=== PATIENT | female | born 1975 | race Caucasian/White ===

== ENCOUNTER 2019-08-28 00:29 | Emergency (ER) | payer OTHER, SELFPAY ==
[2019-08-28] VITALS (7 sets, daily range): BP systolic 125–145; BP diastolic 67–107; PULSE 103–117; RESP 16–28; TEMP 37.2–38.7; O2SAT 92–96
--- NOTE | ~2019-08-28 | XR_ITS ---
EXAMINATION: XR chest 1V portable DATE: 08/28/2019 01:28 INDICATION: Cough and shortness of breath TECHNIQUE: frontal view of the chest was obtained. COMPARISON: Chest radiograph dated 03/01/2018 FINDINGS: Mild increased perihilar opacities. No pleural effusion or pneumothorax. The cardiomediastinal silhou ette is normal. Visualized bones and soft tissues are unremarkable. IMPRESSION: 1. Mild perihilar opacities which could represent mild pulmonary edema or pneumonia. Reviewed, dictated and finalized at location A. T SPRAY TENDER IMPRESSION: 1. Mild perihilar opacities which could represent mild pulmonary edema or pneum onia.
--- NOTE | 2019-08-28 00:32 | ED.DIZZY ---
HPI - Dizziness General Chief Complaint: Dizziness Stated Complaint: cough Time Seen by Provider: 08/28/19 00:32 Source: patient and family Mode of arrival: ambulatory Limitations: no limitations History of Present Illness HPI Narrative: Patient is a 44-year-old female who presents to the emergency department for evaluation of shortness of breath. Patient reports she has been short of breath, also reports weakness, nausea over the past 24 hours. States she has had a recent sick contact with similar symptoms, but stated that he felt improved after a day. Patient began to have cough and shortness of breath yesterday, then began to feel nauseated and dizzy throughout the course of today. Patient did not receive influenza vaccine this year. She reports fever and feeling sweaty. She denies any head, chest or abdominal pain. She denies lower extremity swelling or rashes. Patient is not on any home oxygen. She does have a history of COPD and asthma per patient. Related Data Allergies Allergy/AdvReac Type Severity Reaction Status Date / Time aspirin Allergy Mild facial & Verified 06/06/18 21:39 throat swelling codeine Allergy Mild facial Verified 06/06/18 21:39 swelling latex Allergy Mild Verified 06/06/18 21:39 Review of Systems Review of Systems: Narrative: CONSTITUTIONAL: Reports fever and chills EYES: Denies visual changes, redness, or discharge. ENT: Reports congestion CARDIOVASCULAR: Denies chest pain, palpitations, or edema. RESPIRATORY: Reports cough and shortness of breath GASTROINTESTINAL: Denies abdominal pain, reports nausea, denies vomiting GENITOURINARY: Denies dysuria or hematuria. SKIN: Denies rash or itching. MUSCULOSKELETAL: Denies back pain, joint pain, reports myalgias NEUROLOGIC: Denies headache, numbness, reports feeling weak PMFSH Past Medical History Medical History (Updated 08/28/19 @ 01:12 by Stacy Matthew MD) Asthma Bronchitis COPD (chronic obstructive pulmonary disease) Multiple sclerosis Pneumonia Surgical History Surgical History (Updated 08/28/19 @ 00:44 by Stacy Matthew MD) H/O section H/O hernia repair H/O: hysterectomy History of cholecystectomy Social History Social History (Updated 08/28/19 @ 00:44 by Stacy Matthew MD) Smoking status: Current every day smoker Tobacco type: cigarettes Second hand tobacco smoke exposure: Yes Alcohol intake: never Substance use: never Living arrangements: with family Exam Narrative: Exam Narrative: GENERAL: Awake, alert, diaphoretic, conversant HEAD: Normocephalic, atraumatic. EYES: PERRLA and EOMI. ENT: Nares clear, no rhinorrhea or epistaxis. Mucous membranes moist. NECK: Supple. CHEST: Coarse breath sounds, expiratory wheezing bilateral bases, tachypnea, hypoxia when ambulated from the waiting room to the bed, moderate respiratory distress HEART: Tachycardic rate and rhythm. No murmur heard. Normal peripheral pulses. ABDOMEN: Soft, nontender, nondistended, normal active bowel sounds. EXTREMITIES: Normal range of motion. No edema. SKIN: Warm, dry, no rash. NEURO:No focal deficits. Alert and oriented x3. EOMs intact without nystagmus. No facial droop/asymmetry noted bilaterally. Grimace intact. Intact sensation in face. Hearing intact bilaterally. Shoulder shrug intact. Strength 5/5 bilateral upper extremities. Strength 5/5 bilateral lower extremities. Reflexes 2+ patellar. Ambulatory with a narrow base, steady gait, no ataxia. Course Course Emergency Course: Patient presented for evaluation of shortness of breath, dizziness, nausea. Patient has also had reported cough, and is febrile and tachycardic at the time of initial assessment. Concern for influenza, and patient's influenza swab is positive for influenza A. Patient was given 30 mL/kg fluid bolus because technically she does meet sepsis criteria, but no evidence of severe infection or sepsis as patient has no lactic acidosis or leukocyt
--- NOTE | 2019-08-28 00:37 | ECG_ITS ---
Measurements Intervals [place] Rate: 109 P: 27 MD: 123 QRS: 78 QRSD: 90 T: 26 QT: 335 QTc: 452 Interpretive Statements SINUS TACHYCARDIA DELAYED PRECORDIAL R/S TRANSITION BORDERLINE T WAVE ABNORMALITY- INFERIOR LEADS BASELINE ARTIFACT- I, II, AVR, AVL, AVF ABNORMAL ECG Electronically Signed On 08-28-2019 7:12:22 MACHINE COMPOSITOR by Jonah Gómez D.O.
[2019-08-28] MEDS: ACETAMINOPHEN 500 MG TABLET 1000 MG PO (00:48)
[2019-08-28] MEDS: ONDANSETRON INJ 4 MG/2 ML VIAL IV PUSH (00:48)
[2019-08-28] MEDS: methylPREDNISolone SOD SUCC 125 MG VIAL IV PUSH (00:48)
[2019-08-28] MEDS: SODIUM CHLORIDE 0.9% IV 1,000 ML 999 ML IV CONT ×2 (00:49→01:37)
[2019-08-28] MEDS: IPRATROPIUM BR 0.02% INH SOLN 0.5 MG/2.5 ML VIAL 2 MG INHALATION (00:53)
[2019-08-28] MEDS: ALBUTEROL SULFATE NEB 2.5 MG/0.5 ML INH 20 MG INHALATION (00:54)
[2019-08-28 00:56] LABS: Basophils Absolute Auto 0.1 K/mm3 (0.0-0.1); Basophils Percent Auto 0.5 % (0.2-1.2); Hematocrit 38.6 % (37.0-47.0); Immature Granulocyte Absolute 0.03 K/mm3 (0.00-0.031); Immature Granulocyte Percent A 0.2 % (0-0.5); Lymphocytes Absolute Auto 0.48 K/mm3 (0.9-3.2); Mean Corpuscular HGB Conc 31.1 g/dl (32-36); Mean Corpuscular Hemoglobin 24.7 pg (26-34); Mean Corpuscular Volume 79.6 fl (80-100); Mean Platelet Volume 9.6 fl (7.4-10.4); Monocytes Absolute Auto 0.6 K/mm3 (0.1-0.6); Monocytes Percent Auto 5.3 % (2.6-8.5); Neutrophils Absolute Auto 10.8 K/mm3 (1.3-6.7); Platelet Count Result 372 k/mm3 (150-375); Red Blood Count 4.85 M/mm3 (4.2-5.4); Red Cell Distribution Width 16.5 % (11.5-14.5)
[2019-08-28] MEDS: MAGNESIUM SULF 2 GM/WATER 50ML 2 GM/50 ML BAG IVPB (01:00)
[2019-08-28 01:11] LABS: Alveolar/Arterial O2 Gradient 92.8 mmHg; Base Excess ABG -1.1 mEq/l (+/-2.0); Fractional Inspired Oxygen 27 %; HCO3 ABG 22.5 mEq/l (22.0-26.0); Methemoglobin ABG 0.4 %THb (0-1.5); Oxygen Content ABG 15.2 %vol (16.0-22.0); Oxygen Saturation ABG 92.1 % (95.0-100.0); PCO2 ABG 33.7 mmHg (35.0-45.0); PO2 ABG 59.9 mmHg (80.0-100.0); PO2 FiO2 Ratio Arterial Blood 2.22 %; Reduced Hemoglobin 8.6 %THb (0-5.0); pH ABG 7.442 (7.350-7.450)
[2019-08-28 01:12] LABS: Device NASAL CANNULA; Liters per Minute 1.5 LPM; Modified Allen's Test Pass; Site Drawn RIGHT RADIAL
[2019-08-28 01:14] LABS: Alanine Aminotransferase 13 U/L (4-35); Albumin Level 4.3 g/dL (3.5-5.1); Alkaline Phosphatase 72 U/L (38-126); Aspartate Amino Transferase 19 U/L (14-36); Bilirubin,Total 0.6 mg/dL (0.2-1.3); Blood Urea Nitrogen 10 mg/dL (7-17); Calcium 8.7 mg/dL (8.4-10.2); Carbon Dioxide 25 mmol/L (22-30); Chloride 94 mmol/L (98-107); Estimated CRCL calculation 106 ml/min; Estimated Glomerular Filt Rate > 60; Glucose 129 mg/dL (65-105); Lipase 27 U/L (23-300); Potassium 3.7 mmol/L (3.4-5.0); Sodium 133 mmol/L (137-145)
[2019-08-28 01:44] LABS: Lactic Acid Reflex 0.7 mmol/L (0.7-2.1)
[2019-08-28] MEDS: OSELTAMIVIR PHOSPHATE 75 MG CAP PO (02:12)
== END 2019-08-28 03:05 | disposition home or self-care (01) ==
PROVIDERS: Emergency Provider Emergency Medicine
DX: J10.1 Influenza due to other identified influenza virus with other respiratory manifestations (principal); J44.9 Chronic obstructive pulmonary disease, unspecified; J45.901 Unspecified asthma with (acute) exacerbation; G35 Multiple sclerosis; F17.210 Nicotine dependence, cigarettes, uncomplicated; R00.0 Tachycardia, unspecified; R94.31 Abnormal electrocardiogram [ECG] [EKG]
CPT/HCPCS: 36415; 36600; 71045; 80053; 82375; 82805; 83050; 83605; 83690; 85025; 87040; 87804; 93005; 94640; 96365; 96367; 96375; 99284; A9270; J0456; J2405; J2930; J3475; J7030

== ENCOUNTER 2019-12-01 00:27 | Observation (INO) | payer OTHER, SELFPAY ==
[2019-12-01] VITALS (18 sets, daily range): BP systolic 102–145; BP diastolic 60–90; PULSE 73–115; RESP 15–25; TEMP 36.1–36.9; O2SAT 93–98; BMI 35.2
--- NOTE | ~2019-12-01 | CT_ITS ---
EXAMINATION: CT abdomen pelvis w con INDICATION: Abnormal chest CT, concern for renal neoplasms TECHNIQUE: Computed tomographic images of the abdomen and pelvis were obtained after the administrati on of 100 cc of Omnipaque 350 intravenous contrast. The dose-length product (DLP) was 1259.42 mGy-cm. Automated exposure control and iterative reconstruction technique were employed. COMPARISON: 01/23/2018 FINDINGS: There are patchy airspace opacities of the visualized lung bases. The gallbladder is surgic ally absent. A small sliding hiatal hernia is present. The liver, spleen, pancreas, and adrenal gland s are normal. The kidneys are unremarkable. No pathologically enlarged abdominal or pelvic lymph node s are identified. There is no free intraperitoneal gas or evidence of bowel obstruction. The appendix is normal. Gas and infiltration in the anterior subcutaneous tissues of the right lower quadrant abd ominal wall likely reflects an injection site. There is moderate lumbar spondylosis. IMPRESSION: 1. No suspicious renal lesion identified. Reviewed, dictated and finalized at location A.
--- NOTE | ~2019-12-01 | XR_ITS ---
EXAMINATION: XR chest 2V DATE: 12/01/2019 01:05 INDICATION: Shortness of breath and chest pain TECHNIQUE: PA and lateral views of the chest are obtained. COMPARISON: 08/28/2019 FINDINGS: There are patchy airspace opacities of the mid and lower lung zones. There is no pleural ef fusion or pneumothorax. The cardiomediastinal silhouette is normal. There is mild thoracic spondylosi s. IMPRESSION: 1. Patchy opacities of the mid and lower lung zones which may reflect atelectasis versus pneumonia. Reviewed, dictated and finalized at location A. IMPRESSION: 1. Patchy opacities of the mid and lower lung zones which may reflect atelectas is versus pneumonia.
--- NOTE | ~2019-12-01 | XR_ITS ---
EXAMINATION: XR shoulder LT min 2V INDICATION: Left shoulder pain TECHNIQUE: Four views of the left shoulder are submitted. COMPARISON: None FINDINGS: Normal alignment. No fracture. Glenohumeral and acromioclavicular joint spaces are normal. Soft tissues are unremarkable. IMPRESSION: No acute osseous abnormality. Reviewed, dictated and finalized at location A.
--- NOTE | ~2019-12-01 | CT_ITS ---
EXAMINATION: CTA chest PE protocol DATE: 12/01/2019 03:25 INDICATION: Chest pain and shortness of breath TECHNIQUE: Computed tomography angiography (CTA) of the chest was performed with 100 mL Omnipaque-350 intravenous contrast timed to evaluate the pulmonary arteries. Coronal maximum intensity projection 3D-reconstructions were created by the technologist. The dose-length product (DLP) was 805.30 mGy-cm. Automated exposure control and iterative reconstruction technique were employed. COMPARISON: None. FINDINGS: The pulmonary arteries are well-opacified. No pulmonary embolism is identified. There are p atchy groundglass airspace opacities throughout the lungs. No pleural effusion or pneumothorax is driss ntified. Cardiomegaly is noted. There is right supraclavicular, mediastinal and bilateral hilar lymph adenopathy, left greater than right. There is moderate thoracic spondylosis. IMPRESSION: 1. No pulmonary embolism. 2. Diffuse groundglass opacity throughout the lungs. Findings could reflect hypersensitivity pneumoni tis, atypical pneumonia, or pulmonary edema. 3. Right supraclavicular, mediastinal, and bilateral hilar lymphadenopathy, likely reactive. Reviewed, dictated and finalized at location A. IMPRESSION: 1. No pulmonary embolism. 2. Diffuse groundglass opacity throughout the lungs. Findings could reflect hyp ersensitivity pneumonitis, atypical pneumonia, or pulmonary edema. 3. Right supraclavicular, mediastinal, and bilateral hilar lymphadenopathy, lik juan reactive.
--- NOTE | ~2019-12-01 | US_ITS ---
EXAMINATION: US right upper quadrant DATE: 12/01/2019 09:24 INDICATION: Right upper quadrant pain TECHNIQUE: Multiple grayscale and Doppler ultrasound images of the abdomen were obtained. COMPARISON: CT, 01/23/2018 FINDINGS: The head, body, and tail of the pancreas are normal. The liver is normal with normal echoge nicity and echotexture. No surface nodularity. Normal hepatopetal flow in the main portal vein. The g allbladder is surgically absent. The normal common bile duct measures 4 mm. IMPRESSION: 1. No sonographic correlate for the patient's symptoms. Reviewed, dictated and finalized at location A.
--- NOTE | 2019-12-01 00:37 | ECG_ITS ---
Measurements Intervals [place] Rate: 33 P: MA: 0 QRS: 80 QRSD: 78 T: 67 QT: 598 QTc: 450 Interpretive Statements SINUS RHYTHM VENTRICULAR PREMATURE COMPLEX DELAYED PRECORDIAL R/S TRANSITION LOW QRS VOLTAGE IN PRECORDIAL LEADS BASELINE ARTIFACT- I, III, AVR, AVL, AVF, V2 BORDERLINE ECG Electronically Signed On 12-01-2019 9:07:15 CDT by Jonah Gómez D.O.
[2019-12-01 00:49] LABS: Basophils Absolute Auto 0.1 K/mm3 (0.0-0.1); Basophils Percent Auto 0.5 % (0.2-1.2); Eosinophils Absolute Auto 0.2 K/mm3 (0-0.3); Eosinophils Percent Auto 1.7 % (0-4.4); Hematocrit 36.8 % (37.0-47.0); Hemoglobin 11.3 g/dL (12.0-15.0); Immature Granulocyte Absolute 0.04 K/mm3 (0.00-0.031); Immature Granulocyte Percent A 0.3 % (0-0.5); Lymphocytes Percent Auto 12.9 % (18.3-44.2); Mean Corpuscular HGB Conc 30.7 g/dl (32-36); Mean Corpuscular Volume 74.9 fl (80-100); Mean Platelet Volume 9.4 fl (7.4-10.4); Monocytes Absolute Auto 0.8 K/mm3 (0.1-0.6); Monocytes Percent Auto 6.2 % (2.6-8.5); Neutrophils Absolute Auto 10.3 K/mm3 (1.3-6.7); Neutrophils Percent Auto 78.4 % (45.5-73.1); Platelet Count Result 411 k/mm3 (150-375); Red Blood Count 4.91 M/mm3 (4.2-5.4); Red Cell Distribution Width 17.3 % (11.5-14.5); White Blood Count 13.2 K/mm3 (4.5-10.0)
[2019-12-01 01:44] LABS: Blood Urea Nitrogen 12 mg/dL (7-17); Calcium 8.9 mg/dL (8.4-10.2); Carbon Dioxide 26 mmol/L (22-30); Chloride 103 mmol/L (98-107); Estimated Glomerular Filt Rate > 60; Glucose 100 mg/dL (65-105); Partial Thromboplastin Time 28.9 SECONDS (22.3-36.8); Potassium 4.2 mmol/L (3.4-5.0); Prothrombin Time 13.1 Seconds (11.1-14.7); Sodium 135 mmol/L (137-145)
[2019-12-01] MEDS: BELLADONNA ALK/PHENOB ELIX 10 ML, MAG HYDROX/ALUMINUM HYD/SIMETH 30 ML, LIDOCAINE HCL 2... PO (01:53)
[2019-12-01 01:56] LABS: Troponin I < 0.012 ng/mL (0.000-0.034)
[2019-12-01] MEDS: MORPHINE SULFATE 4 MG/ML INJ IV PUSH (02:20)
[2019-12-01 02:39] LABS: NT Pro B Type Natriuretic Pept 688 PG/ML (5-100)
[2019-12-01] MEDS: NITROGLYCERIN OINTMENT 1 INCH DOSE 0.5 INCH TRANSDERM (03:45)
--- NOTE | 2019-12-01 04:17 | ED.CHESTPAIN ---
HPI - Chest Pain General Chief Complaint: Chest Pain Stated Complaint: chest pain Time Seen by Provider: 12/01/19 01:42 History of Present Illness HPI narrative: Patient is a 44-year-old female who presents the ER with chest pain and shortness of breath. Sudden onset around 930. Central chest pressure. Grade 9/10. No radiation. Associated with dyspnea. Symptoms worsen if she lays down flat. No acid reflux symptoms. No modification with exertion. Denies fevers or chills or sweats. No productive cough. Patient has history of MS for which she takes Tecfidera. No history of heart disease. No history of PE. Related Data Home Medications Medication Instructions Recorded Confirmed cyclobenzaprine mg 12/01/19 Allergies Allergy/AdvReac Type Severity Reaction Status Date / Time codeine Allergy Mild facial Verified 12/01/19 00:36 swelling latex Allergy Mild Unknown Verified 12/01/19 00:36 Review of Systems Review of Systems: All systems reviewed & are unremarkable except as noted in HPI and below Cardiovascular: Cardiovascular: Reports chest pain and Denies rapid heart rate Respiratory: Respiratory: Denies cough, Reports dyspnea and Denies wheezing PMFSH Past Medical History Medical History (Updated 12/01/19 @ 05:45 by Gavino Haddad MD) Asthma Bronchitis COPD (chronic obstructive pulmonary disease) Multiple sclerosis Pneumonia Surgical History Surgical History (Updated 08/28/19 @ 00:44 by Stacy Matthew MD) H/O section H/O hernia repair H/O: hysterectomy History of cholecystectomy Social History Social History (Updated 08/28/19 @ 00:44 by Stacy Matthew MD) Smoking status: Current every day smoker Tobacco type: cigarettes Second hand tobacco smoke exposure: Yes Alcohol intake: never Substance use: never Exam Narrative: Exam Narrative: GENERAL: Uncomfortable-appearing, well-nourished, and in no acute distress. HEAD: Normocephalic, atraumatic. ENT: Mucous membranes moist. NECK: Supple. CHEST: Clear to auscultation. No respiratory distress. HEART: Regular rate and rhythm. Normal peripheral pulses. ABDOMEN: Soft, nontender, nondistended. EXTREMITIES: Normal range of motion. No edema. SKIN: Warm, dry, no rash. NEURO: Alert and oriented x3. Course Course Emergency Course: Patient informed of results. Reports chest pain has decreased with nitro paste to 4/10. This is helped ease her breathing as well. Patient denies any exposures to inhaled chemicals other than smoking cigarettes. Reevaluation(s) Reevaluation #1: Admit to hospitalist service. Will start on clindamycin as well as steroids. Will have pulmonology consulted tomorrow. Add on LDH due to concern for PCP pneumonia. Patient also received car SARS COVID swab. Date: 12/01/19 Time: 05:41 Vital Signs Vital signs: Vital Signs Temperature 98.4 F 12/01/19 00:31 Pulse Rate 115 H 12/01/19 00:31 Respiratory Rate 25 H 12/01/19 00:31 Blood Pressure 121/90 12/01/19 00:31 Pulse Oximetry 96 12/01/19 00:31 Temperature 98.4 F 12/01/19 00:31 Pulse Rate 95 12/01/19 03:35 Respiratory Rate 22 H 12/01/19 03:35 Blood Pressure 125/79 12/01/19 03:35 Pulse Oximetry 94 12/01/19 03:35 MDM - Chest Pain Lab Data Result diagrams: 12/01/19 00:42 12/01/19 01:26 Labs: Lab Results 12/01/19 12/01/19 12/01/19 Range/Units 00:42 01:26 01:26 WBC 13.2 H (4.5-10.0) K/mm3 RBC 4.91 (4.2-5.4) M/mm3 Hgb 11.3 L (12.0-15.0) g/dL Hct 36.8 L (37.0-47.0) % MCV 74.9 L (80-100) fl MCH 23.0 L (26-34) pg MCHC 30.7 L (32-36) g/dl RDW 17.3 H (11.5-14.5) % Plt Count 411 H (150-375) k/mm3 MPV 9.4 (7.4-10.4) fl Immature Gran % (Auto) 0.3 (0-0.5) % Neut % (Auto) 78.4 H (45.5-73.1) % Lymph % (Auto) 12.9 L (18.3-44.2) % [place] % (Auto) 6.2 (2.6-8.5) % Eos % (Auto) 1.7 (0-4.4) % Baso % (Auto) 0.5
[2019-12-01 05:04] LABS: Troponin I < 0.012 ng/mL (0.000-0.034)
[2019-12-01 05:35] LABS: Lactate Dehydrogenase 497 U/L (313-618)
[2019-12-01] MEDS: predniSONE 20 MG TABLET 60 MG PO (05:36)
[2019-12-01] MEDS: CLINDAMYCIN 900 MG/NS 50 ML 900 MG/50 ML PIGGYBACK 50 MG IVPB ×3 (05:36→21:11)
[2019-12-01 06:50] LABS: Troponin I < 0.012 ng/mL (0.000-0.034)
--- NOTE | 2019-12-01 06:52 | ADMGEN ---
This patient, Tatiana Elder, was admitted to [facility] Surg Room 330-01. Patient/family oriented to hospital policies and general routines including ID bracelet, bed and alarms, visiting hours, pain management, procedures, bathroom and other care routines, personal items, smoking policy, room service/diet, and visiting hours. Valuables list has been completed. Information on how to activate the Rapid Response Team has been discussed. Patient/Family are encouraged to report perceived risks to care and to ask questions if they do not understand what they are told or what they should do.
--- NOTE | 2019-12-01 08:02 | PM.IMHP ---
H&P: HPI History of Present Illness Chief complaint: hypersensitivity pneumonitis/covid PUI Narrative: Tatiana Elder is a 44 year old female with MS who is here for chest pain. Patient was feeling well until 930PM on the evening prior to admission when she developed acute onset substernal chest pain. She describes it as a squeezing sensation as well as a ?elephant laying on my chest?. The pain was 9/10 in severity. Pain radiated up to her ears bilaterally. Is associated with shortness of breath but no nausea. This occurred at rest. Has been no sick contacts. No fever chills. Pain seems to be worse with laying flat. It was worse with touching the chest wall. It was pleuritic in nature. She had a stress test that was negative less than 5 years ago but has never had a heart catheterization. He does have risk factors with tobacco use. She has had a cough the past 4 months that began after a episode of the flu. She gets headaches with the coughing spells. Cough is productive whitish sputum but no hemoptysis. Cough seems to be worse with activity. She did take some cough suppressant and allergy medications a few weeks ago without benefit. Patient presented to the emergency room by private vehicle. In the emergency room, patient was tachypneic and tachycardic. Patient was given a GI cocktail without benefit. She received a dose of morphine but a short time later developed a squeezing sensation in her lower ribcage and upper abdomen under breasts that she describes as a ?MS hug?. She gets this often a few times a month. This comes on without warning and at rest. [place] [address]. Troponin Negative x3. LDH normal. BNP 688. COVID test pending. EKG reviewed personally in very similar to an EKG from August with the exception of flattened T-waves in V2 and V3; still with poor R-wave progression. CTA showed no pulmonary emboli but did show bilateral perihilar hazy ground-glass opacities. Clindamycin and prednisone started. Nitropaste and aspirin was given. Patient was admitted for further care. Since admission, RN states patient was short of breath walking to the bathroom with pulse ox of 88% on room air. At rest she is 95%. Patient has MS and is on immunosuppressive agents. She does have memory issues at times. She complains of left arm weakness with intermittent numbness in the left hand present over the past few years. She no longer works because she is fatigued. She does complain of left shoulder pain over the past few days but denies any trauma or injury. Pain is with movement and palpation. She states her anxiety and depression symptoms well controlled. She denies any suicidal homicidal ideation. She has been having allergy symptoms with watery eyes and rhinorrhea. No sore throat. She does have intermittent diplopia and blurred vision that she states is related to her MS. Has dogs and cats at home but no exposure to other animal such as birds. No kittens. Review of Systems Review of Systems: All systems reviewed & are unremarkable except as noted in HPI and below PMFSH Past Medical History Medical History (Updated 12/01/19 @ 11:23 by China Houser MD) Asthma COPD (chronic obstructive pulmonary disease) Depression with anxiety Multiple sclerosis Vaginal mass vaginal wall lesion that was nonmalignant by bx 11/2004 Surgical History Surgical History H/O section with one miscarriage; x3 H/O hernia repair left 01/2004 H/O: hysterectomy TATA 06/2004 History of cholecystectomy Hx of knee surgery left Hx of shoulder surgery 08/2005 Family History Family History (Updated 12/01/19 @ 08:50 by Bernardino Trujillo MD) Mother Hypertension Diabetes mellitus CHF (congestive heart failure) Son Seizure in infant Social History Social History (Updated 12/01/19 @ 09:12 by Bernardino Trujillo MD) Social History: Hx of
[2019-12-01] MEDS: NICOTINE (*PBKC) 21 MG PATCH 1 PATCH TRANSDERM (09:00)
[2019-12-01] MEDS: ENOXAPARIN 40 MG/0.4 ML SYRINGE SUB-Q (09:56)
[2019-12-01 10:45] LABS: Alanine Aminotransferase 20 U/L (4-35); Albumin Level 4.2 g/dL (3.5-5.1); Alkaline Phosphatase 74 U/L (38-126); Aspartate Amino Transferase 29 U/L (14-36); Bilirubin,Total 0.6 mg/dL (0.2-1.3)
--- NOTE | 2019-12-01 11:15 | PM.CNPUL ---
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 The differential is Lymphoid Interstitial Pneumonia(LIP), Lymphangiolyomatosis, Pulmonary Langerhans Cell Histocytosis and Qzqb-Thtrr-Hzgi Syndrome. LIP is most probable based on CT scan features. - will order autoimmune panel - CT abd/pelvis to r/o renal tumors - alpha-1 antitrypsin level - may need VEGF level ordered. - May also need Bronchoscopy with BAL to check for CD1a and possible transbronchial biopsies - If above is non diagnostic, she will need VATS lung biopsy for definitive diagnosis - She must stop smoking immediately as she is at high risk for sponteneous pneumothoraces in the future - Symbicort 160/4.5 mcg 2 puffs Q8h - Spiriva 18 mcg 1 puff daily - Agree with SARS-CoV-2 rule out although less likely. History of Present Illness History of Present Illness Consult date: 12/01/19 Reason for consult: dyspnea, cough and chest pain Chief complaint: hypersensitivity pneumonitis/covid PUI Narrative: 44 y/o female smoker who presents with sudden onset chest pain worse with coughing or taking a deep breath which has subsided. She has 30 pack year smoking history and still smokes. CT chest shows bilateral predominantly upper lobe ground glass opaciites with bilateral thin walled cysts < 10 mm in size but not diffuse. The bases of the lungs are spared. She denies any family history of common lung diseases. She denies fever, chills, night sweats, sore throat, runny nose, diarrhea, decreased loss of smell or taste or decreased appetite. She says she had influenza like symptoms about two months ago which have resolved. Review of Systems Review of Systems: All systems reviewed & are unremarkable except as noted in HPI and below PMFSH Past Medical History Medical History (Updated 12/01/19 @ 11:23 by China Houser MD) Asthma COPD (chronic obstructive pulmonary disease) Depression with anxiety Multiple sclerosis Vaginal mass vaginal wall lesion that was nonmalignant by bx 11/2004 Surgical History Surgical History H/O section with one miscarriage; x3 H/O hernia repair left 01/2004 H/O: hysterectomy TATA 06/2004 History of cholecystectomy Hx of knee surgery left Hx of shoulder surgery 08/2005 Family History Family History (Updated 12/01/19 @ 08:50 by Bernardino Trujillo MD) Mother Hypertension Diabetes mellitus CHF (congestive heart failure) Son Seizure in infant Social History Social History (Updated 12/01/19 @ 09:12 by Bernardino Trujillo MD) Social History: Hx of methamphetamine use. Smokes 1ppd x 33 yrs ( she started at age 11yo). No history of IV drug use. Lives at home with her son and daughter and boyfriend. Her other child has moved out. She denies alcohol use. She wishes to make herself a DNR. She nominates her friend Bev to be the individual would make medical decisions for her if she is not able. Smoking packs per day: 1 Smoking cigarettes per day: 20.0 Smoking status: Current every day smoker Tobacco type: cigarettes Second hand tobacco smoke exposure: Yes Alcohol intake: former Substance use: never Gender identity (if verbalized by the patient): Female Spiritual care concerns: No Meds Home Medications and Allergies Home Medications Medication Instructions Recorded Confirmed Type acetaminophen [Tylenol] 325 mg PO ONCE 7 Days #30 cap 08/28/19 Rx albuterol sulfate 1 inh INHALATION Q4-6H PRN #1 each 08/28/19 Rx azithromycin See Rx Instructions .ROUTE 08/28/19 Rx .COMPLEX 5 Days #5 tablet metoclopramide HCl [Reglan] 10 mg PO Q6H PRN #14 tablet 08/28/19 Rx oseltamivir [Tamiflu] 75 mg PO
[2019-12-01] MEDS: ALBUTEROL SULFATE (*SP) AEROSOL 1 PUFF 2 PUFF INHALATION ×2 (12:43→16:50)
[2019-12-01 12:47] LABS: Rheumatoid Factor < 8.6 IU/ML (<12)
[2019-12-01] MEDS: ACETAMINOPHEN 325 MG TABLET 650 MG PO (14:21)
[2019-12-01] MEDS: ALBUTEROL SULFATE (*SP) INHALER 1 PUFF (19:51)
[2019-12-01] MEDS: OXYBUTYNIN CHLORIDE 5 MG TABLET PO (21:11)
[2019-12-01] MEDS: CYCLOBENZAPRINE HCL 10 MG TABLET PO (21:11)
[2019-12-02] VITALS (8 sets, daily range): BP systolic 105–150; BP diastolic 75–82; PULSE 62–105; RESP 20; TEMP 36.7–37; O2SAT 92–95
[2019-12-02] MEDS: CLINDAMYCIN 900 MG/NS 50 ML 900 MG/50 ML PIGGYBACK 50 MG IVPB (06:41)
[2019-12-02 07:02] LABS: Hematocrit 32.8 % (37.0-47.0); Hemoglobin 9.9 g/dL (12.0-15.0); Mean Corpuscular HGB Conc 30.2 g/dl (32-36); Mean Corpuscular Hemoglobin 22.4 pg (26-34); Mean Corpuscular Volume 74.4 fl (80-100); Mean Platelet Volume 9.2 fl (7.4-10.4); Platelet Count Result 346 k/mm3 (150-375); Red Blood Count 4.41 M/mm3 (4.2-5.4); Red Cell Distribution Width 17.2 % (11.5-14.5); White Blood Count 8.4 K/mm3 (4.5-10.0)
[2019-12-02 07:25] LABS: Alanine Aminotransferase 15 U/L (4-35); Albumin Level 3.8 g/dL (3.5-5.1); Alkaline Phosphatase 64 U/L (38-126); Aspartate Amino Transferase 22 U/L (14-36); Bilirubin,Total 0.3 mg/dL (0.2-1.3); Blood Urea Nitrogen 9 mg/dL (7-17); Calcium 8.5 mg/dL (8.4-10.2); Carbon Dioxide 26 mmol/L (22-30); Chloride 105 mmol/L (98-107); Estimated CRCL calculation 122 ml/min; Estimated Glomerular Filt Rate > 60; Glucose 101 mg/dL (65-105); Potassium 3.7 mmol/L (3.4-5.0); Sodium 137 mmol/L (137-145)
[2019-12-02] MEDS: ALBUTEROL SULFATE (*SP) AEROSOL 1 PUFF 2 PUFF INHALATION ×3 (09:17→12:35)
[2019-12-02] MEDS: CYCLOBENZAPRINE HCL 10 MG TABLET PO (10:29)
[2019-12-02] MEDS: ENOXAPARIN 40 MG/0.4 ML SYRINGE SUB-Q (10:29)
[2019-12-02] MEDS: OXYBUTYNIN CHLORIDE 5 MG TABLET PO (10:30)
[2019-12-02] MEDS: NICOTINE (*PBKC) 21 MG PATCH 1 PATCH TRANSDERM (10:30)
--- NOTE | 2019-12-02 12:19 | PM.PNPUL ---
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 The differential is Lymphoid Interstitial Pneumonia(LIP), Lymphangiolyomatosis, Pulmonary Langerhans Cell Histocytosis and Mjff-Xafag-Sgps Syndrome. LIP is most probable based on CT scan features. - RF negative and rest of autoimmune panel pending - CT Abd/pelvis shows no renal tumor or angioleomyoma - patient can be discharged home from pulmonary perspective with Symbicort 160/4.5 mcg 2 puffs bid along with Spiriva 18 mcg 1 puff daily - I ordered f/u HRCT chest in 1 month as outpatient - no need for systemic steroids as this time - no need for antibiotics - f/u in our pulmonary office via Telehealth or in Person in 6-8 weeks Subjective Date/time seen: 12/02/19 12:19 Interval history: Feeling much better, no chest pain or productive cough Review of Systems Review of Systems: All systems reviewed & are unremarkable except as noted in HPI and below Exam Const: General: comfortable and no acute distress Eyes: General: appearance normal, both eyes and all related structures Neck: Neck: supple and no JVD Resp: Auscultation: diminished lung sounds Cardio: Rate: regular rate Rhythm: regular rhythm Heart sounds: no gallops and no murmurs GI: GI Palp: Yes Soft to palpation Auscultation: normal bowel sounds Skin: General skin exam: normal color Other: raised lesions on her left knee which are dry but not fleshy as well as posterior left forearm but nothing diffuse Neuro: General: gait normal Speech: normal speech Psych: Mental Status: mental status grossly normal Affect: normal affect Objective Data Vital Signs Vital Signs: Vital Signs - 24 hr 12/01/19 12:52 12/01/19 14:00 12/01/19 16:00 Temperature 36.1 C L Pulse Rate 91 99 92 Respiratory Rate 20 20 24 H Blood Pressure 145/79 H Pulse Oximetry 93 93 12/01/19 16:57 12/01/19 18:00 12/01/19 20:00 Temperature 36.1 C L Pulse Rate 89 91 102 H Respiratory Rate 20 Blood Pressure 123/60 Pulse Oximetry 94 12/01/19 22:00 12/02/19 00:00 12/02/19 01:50 Temperature 36.1 C L 37.0 C Pulse Rate 85 105 H 87 Respiratory Rate 24 H 20 Blood Pressure 132/70 150/79 H Pulse Oximetry 98 94 12/02/19 04:00 12/02/19 07:41 12/02/19 08:00 Temperature 36.7 C Pulse Rate 91 82 62 Respiratory Rate 20 20 Blood Pressure 144/82 H Pulse Oximetry 94 92 Intake/Output Intake/Output: Intake & Output 11/29/19 11/30/19 12/01/19 12/02/19 23:59 23:59 23:59 23:59 Intake Total 860 200 Output Total 1200 300 Balance -340 -100 Meds/Results Medications: Active Medications Generic Name Dose Route Start Last Admin Trade Name Freq PRN Reason Stop Dose Admin Acetaminophen 650 mg 12/01/19 05:11 12/01/19 14:21 Tylenol Tablet PO 650 mg Q4H PRN Administration Mild Pain (1-3) or Fever Hydrocodone Bitart/Acetaminophen 1 tab 12/01/19 05:11 12/02/19 11:30 Post 5-325 Mg PO 1 tab Q4H PRN Administration Pain Rated 4-6 Albuterol 2 puff 12/01/19 12:00 12/02/19 09:17 Proventil Hfa INHALATION 2 puff QIDRT ESTHER Administration Budesonide/Formoterol Fumarate 2 puff 12/01/19 11:10 12/02/19 09:18 Symbicort 160-4.5 Mcg (*Sp) Inhaler INHALATION 2 puff Q8HRT ESTHER Administration Cyclobenzaprine HCl 10 mg 12/01/19 21:00 12/02/19 10:29 Flexeril PO 10 mg Q12HR ESTHER Administration Enoxaparin Sodium 40 mg 12/01/19 09:30 12/02/19 10:29 Lovenox SUB-Q 40 mg DAILY ESTHER Administration Clindamycin/Sodium Chloride 900 mg in 50 mls @ 50 mls/hr 12/01/19 14:00 12/02/19 06:41 Cleocin 900 Mg/Ns 50 Ml IVPB 50 mls/hr Q8H ESTHER Administration Morphine Sulfate 4 mg 12/01/19 05:11 Morphine Sulfate Inj IV PUSH
--- NOTE | 2019-12-02 15:12 | PM.DS ---
DS: Diagnosis Admitting Diagnosis Admitting Diagnosis: Interstitial pulmonary disease, unspecified Discharge Diagnosis (1) Hypersensitivity pneumonitis: Code(s): J67.9 - Hypersensitivity pneumonitis due to unspecified organic dust Status: Acute Assessment and Plan: Ursula presented with pleuritic chest pain, SOB anc cough. CTA showing hazy ground-glass opacities in the lungs bilaterally concerning for hypersensitive pneumonitis but cannot exclude atypical pneumonia such as viral or atypical bacterial infection given that she is immunosuppressed. Pulmonary consult obtained and felt patient has a unique form of ILD which is in the subcategory of cystic lung disease. She was treated with prednisone and clindamycin but this was not continued. Titers ordered but most pending. RF negative. CT Abd/Pelvis shows no acute findings. Patient feeling much better. Plan for discharge. Discussed she needs to longterm in place until her SARS CoV-2 PCR result returns. And courage her not to leave the home. Also encouraged her to have her children stay with other family members or friends. She voiced understanding of this. (2) Chest pain: Code(s): R07.9 - Chest pain, unspecified Status: Acute Assessment and Plan: Patient with atypical chest pain occurring at rest with pleuritic component. Suspect this is related to #1. Troponins negative x3. No recurrence. (3) Suspected COVID-19 virus infection: Code(s): Z20.828 - Contact with and (suspected) exposure to other viral communicable diseases Status: Acute Assessment and Plan: SARS-CoV-2 PCR sent. As above. (4) COPD (chronic obstructive pulmonary disease): Code(s): J44.9 - Chronic obstructive pulmonary disease, unspecified Status: Acute Assessment and Plan: Patient not actively wheezing. She has been encouraged to stop smoking. (5) Multiple sclerosis: Code(s): G35 - Multiple sclerosis Status: Acute Assessment and Plan: Patient with immunosuppressive agents for her MS. Okay to resume immunosuppressive agents. (6) Depression with anxiety: Code(s): F41.8 - Other specified anxiety disorders Status: Acute Assessment and Plan: Mood is stable. (7) Tobacco abuse: Code(s): Z72.0 - Tobacco use Status: Acute Assessment and Plan: Patient has been educated about the benefits of smoking cessation. We provided her with nicotine patch. DS: Summary Time Spent with Patient Time attestation: Total time spent providing and/or coordinating discharge services: Exam Narrative: Exam Narrative: Gen -NARD Chest -CTA bilaterally, nml RR CV - RRR S1/S2 Abd - Soft, NT/ND, Positive BS Ext - No pedal edema. Psych - Nml mood and affect Skin - Warm and dry DS: Data Data Completed and Pending Labs on day of discharge: Labs from last 24 hours 12/02/19 12/02/19 12/01/19 06:46 06:46 21:59 WBC 8.4 RBC 4.41 Hgb 9.9 L Hct 32.8 L MCV 74.4 L MCH 22.4 L MCHC 30.2 L RDW 17.2 H Plt Count 346 MPV 9.2 Sodium 137 Potassium 3.7 Chloride 105 Carbon Dioxide 26 BUN 9 Creatinine 0.70 Estim Creat Clear Calc 122 Estimated GFR > 60 Glucose 101 Calcium 8.5 Total Bilirubin 0.3 AST 22 ALT 15 Alkaline Phosphatase 64 Total Protein 7.0 Albumin 3.8 COVID-19 Pt Symptomatic COVID-19 PCR Interp Urine Histoplasma Ag Pending Ur L.pneumophila Ag Pending SARS-CoV-2 Source SARS-CoV-2 RNA (RT-PCR) 12/01/19 12/01/19 05:31 05:31 WBC RBC Hgb Hct MCV MCH MCHC RDW Plt Count MPV Sodium Potassium Chloride Carbon Dioxide BUN Creatinine Estim Creat Clear Calc Estimated GFR Glucose Calcium Total Bilirubin AST ALT Alkaline Phosphatase Total Protein Albumin COVID-19 Pt Symptomatic Pending CO
--- NOTE | 2019-12-02 17:10 | PC.NURSE ---
returned home meds to pt and sent swab to lab [facility] to get mobilab to print label called and spoke with jese sent pt label with my initial and time speimen was collected
[2019-12-04 19:22] LABS: Legionella pneumophila Ag Ur Not Detected (Not Detected)
--- NOTE | 2019-12-05 09:46 | PC.NURSE ---
12/04/19 1400. Attempted to call patient regarding her negative COVID result. Left message for patient to call office.
[2019-12-06 01:37] LABS: CMV IgM Antibody <30.00 AU/mL (<30.00)
[2019-12-06 01:37] LABS: ANA Cascade Screen Negative (Negative); Alpha-1-Antitrypsin, QN 208 mg/dL (83-199); Anti Cyclic Citrullinated Pept <16 Units (<20)
== END 2019-12-02 17:05 | disposition home or self-care (01) ==
LOC: ANHED 05:45 → ANH3MEDSUR 12-02 15:42
PROVIDERS: Internal Medicine Critical Care Medicine; Admitting Provider Internal Medicine; Emergency Provider Emergency Medicine; Visit Provider Internal Medicine
DX: J67.9 Hypersensitivity pneumonitis due to unspecified organic dust (principal); J84.9 Interstitial pulmonary disease, unspecified; R07.89 Other chest pain; Z20.828 Contact with and (suspected) exposure to other viral communicable diseases; J44.9 Chronic obstructive pulmonary disease, unspecified; G35 Multiple sclerosis; F41.8 Other specified anxiety disorders; F17.210 Nicotine dependence, cigarettes, uncomplicated; R06.00 Dyspnea, unspecified; Z66 Do not resuscitate
CPT/HCPCS: 36415; 71046; 71275; 73030; 74177; 76705; 80048; 80053; 80076; 82103; 83615; 83880; 84484; 85025; 85027; 85610; 85730; 86038; 86200; 86235; 86430; 86645; 87040; 87385; 87449; 87486; 87635; 93005; 94640; 96365; 96366; 96372; 96375; 99285; A9270; C9803; G0378; G0379; J1650; J2270; J7512; Q9967; U0003

== ENCOUNTER 2020-01-02 16:19 | Outpatient (CLI) | payer OTHER, SELFPAY ==
--- NOTE | ~2020-01-02 | CT_ITS ---
EXAMINATION: CT chest high resolution wo nh DATE: 01/02/2020 16:42 INDICATION: Hypersensitivity pneumonitis TECHNIQUE: Computed tomography (CT) of the chest was performed without intravenous contrast. The dose -length product (DLP) was 521.08 mGy-cm. Automated exposure control and iterative reconstruction tech nique were employed. COMPARISON: 12/01/2019 FINDINGS: There are persistent but improved diffuse groundglass opacities of the lungs, predominantly involving the upper lobes. Small pleural effusions are now present, right greater than left. There i s no pneumothorax. There is smooth interlobular septal thickening. Cardiomegaly is noted. Mediastinal and bilateral hilar lymphadenopathy persists. The gallbladder is surgically absent. There is moderat e thoracic spondylosis. There is mild emphysema. IMPRESSION: 1. Findings consistent with mild pulmonary edema. 2. Cardiomegaly. 3. Persistent mediastinal lymphadenopathy of unclear significance. Although findings could reflect re active lymph nodes, lymphoma or possibly metastatic disease are considerations. Reviewed, dictated and finalized at location A. IMPRESSION: 1. Findings consistent with mild pulmonary edema. 2. Cardiomegaly. 3. Persistent mediastinal lymphadenopathy of unclear significance. Although fin dings could reflect reactive lymph nodes, lymphoma or possibly metastatic disea se are considerations.
== END 2020-01-02 16:20 | disposition home or self-care (01) ==
PROVIDERS: Visit Provider Internal Medicine Critical Care Medicine
DX: J18.9 Pneumonia, unspecified organism (principal); I51.7 Cardiomegaly
CPT/HCPCS: 71250

== ENCOUNTER 2020-01-04 00:26 | Outpatient (CLI) | payer OTHER, SELFPAY ==
[2020-01-04 17:52] LABS: SARS-CoV-2 RNA PCR Negative
== END 2020-01-04 00:27 | disposition home or self-care (01) ==
LOC: ANHCOVIDDT 00:27
PROVIDERS: Visit Provider Internal Medicine Critical Care Medicine
DX: Z01.818 Encounter for other preprocedural examination (principal); Z11.59 Encounter for screening for other viral diseases
CPT/HCPCS: 87635; C9803; U0003

== ENCOUNTER 2020-01-04 21:55 | Emergency (ER) | payer OTHER, SELFPAY ==
--- NOTE | ~2020-01-04 | XR_ITS ---
XR abdomen/kub 1V 01/05/2020 00:54 INDICATION: Flank pain TECHNIQUE: KUB COMPARISON: 02/05/2004 FINDINGS: Bowel gas pattern is normal. There is no evidence of free air, mass, organomegaly, ascites or obstruction. No abnormal calculi are seen. The bones appear intact. IMPRESSION: 1: No acute abdominal abnormality identified. Reviewed, dictated and finalized at location A.
--- NOTE | ~2020-01-04 | CT_ITS ---
EXAMINATION: CT abdomen pelvis wo con DATE: 01/05/2020 01:02 INDICATION: Right flank pain and hematuria TECHNIQUE: Computed tomography (CT) of the abdomen and pelvis was performed without intravenous contr ast. The dose-length product was 1422.59 mGy-cm. Automated exposure control and iterative reconstruct ion technique were employed. COMPARISON: CT dated 12/01/2019 FINDINGS: No significant pleural or pericardial effusion. No renal/ureteral stone. Nonobstructive bow el gas pattern. Fatty infiltration of the liver. Status post cholecystectomy. No focal bowel wall thi ckening, abscess or free air. Normal appendix. Status post hysterectomy. Small fat-containing umbilic al hernia. Mild-moderate lumbar spondylosis. IMPRESSION: 1. No acute abdominal abnormality. Reviewed, dictated and finalized at location A.
--- NOTE | ~2020-01-04 | CT_ITS ---
EXAMINATION: CTA chest PE protocol DATE: 01/05/2020 08:54 CDT INDICATION: Right posterior chest pain. Elevated d-dimer. Hematuria. TECHNIQUE: Computed tomographic angiography (CTA) of the chest was performed with 100 mL Omnipaque-35 0 intravenous contrast. The dose-length product was 932.23 mGy-cm. Maximum intensity projection 3D-re constructions of the aorta and other arteries were constructed by the technologist on a separate work station. Automated exposure control and iterative reconstruction technique were employed. COMPARISON: CT dated 01/02/2020 FINDINGS: Study is technically adequate without evidence for pulmonary embolism. There is mediastinal and bilateral hilar lymphadenopathy. Cardiomegaly. No significant pleural or pericardial effusion. T here is mild emphysema. There is bilateral mosaic attenuation which has progressed in both lungs. No evidence for aortic aneurysm or dissection. IMPRESSION: 1. No evidence for pulmonary embolism. 2: Progression of mostly continuation of the lungs. Differential diagnosis includes hypersensitivity pneumonitis and atypical pneumonias. 3: Mediastinal and bilateral hilar lymphadenopathy, nonspecific. Reviewed, dictated and finalized at location A. IMPRESSION: 1. No evidence for pulmonary embolism. 2: Progression of mostly continuation of the lungs. Differential diagnosis inc ludes hypersensitivity pneumonitis and atypical pneumonias. 3: Mediastinal and bilateral hilar lymphadenopathy, nonspecific.
[2020-01-04 21:56] VITALS: BP 154/109; PULSE 117; RESP 23; TEMP 36.4; O2SAT 97
[2020-01-04 23:47] LABS: Base Excess ABG -0.7 mEq/l (+/-2.0); Carboxyhemoglobin 2.2 % THb (0-2.0); Device ROOM AIR; Fractional Inspired Oxygen 21 %; HCO3 ABG 23.4 mEq/l (22.0-26.0); Methemoglobin ABG 0.4 %THb (0-1.5); Modified Allen's Test Pass; Oxygen Saturation ABG 94.1 % (95.0-100.0); Oxyhemoglobin 89.9 % THb (90.0-100.0); PCO2 ABG 36.5 mmHg (35.0-45.0); PO2 FiO2 Ratio Arterial Blood 3.24 %; Reduced Hemoglobin 7.5 %THb (0-5.0); Site Drawn LEFT RADIAL; pH ABG 7.425 (7.350-7.450)
[2020-01-04 23:56] LABS: Basophils Absolute Auto 0.1 K/mm3 (0.0-0.1); Basophils Percent Auto 0.6 % (0.2-1.2); Eosinophils Absolute Auto 0.3 K/mm3 (0-0.3); Eosinophils Percent Auto 2.4 % (0-4.4); Hematocrit 34.6 % (37.0-47.0); Hemoglobin 10.4 g/dL (12.0-15.0); Immature Granulocyte Absolute 0.03 K/mm3 (0.00-0.031); Immature Granulocyte Percent A 0.3 % (0-0.5); Lymphocytes Absolute Auto 1.47 K/mm3 (0.9-3.2); Lymphocytes Percent Auto 14.4 % (18.3-44.2); Mean Corpuscular HGB Conc 30.1 g/dl (32-36); Mean Corpuscular Hemoglobin 23.1 pg (26-34); Mean Corpuscular Volume 76.9 fl (80-100); Mean Platelet Volume 9.5 fl (7.4-10.4); Monocytes Absolute Auto 0.5 K/mm3 (0.1-0.6); Monocytes Percent Auto 5.2 % (2.6-8.5); Neutrophils Absolute Auto 7.9 K/mm3 (1.3-6.7); Neutrophils Percent Auto 77.1 % (45.5-73.1); Platelet Count Result 358 k/mm3 (150-375); Red Cell Distribution Width 19.5 % (11.5-14.5); White Blood Count 10.2 K/mm3 (4.5-10.0)
[2020-01-05 00:04] LABS: Add Urine Microscopic? YES; Appearance Urine Cloudy (Clear); Bacteria Urine Trace /hpf; Bilirubin Urine Negative (Negative); Blood Urine 2+ (Negative); Color Urine Yellow (Yellow); Glucose Urine UA Negative (Negative); Ketones Urine Negative (Negative); Leukocyte Esterase Ur 3+ LEU/UL (Negative); Mucus Urine Rare /lpf; Nitrate Urine Negative (Negative); Protein Urine 2+ mg/dL (Negative); RBC Urine >75 /hpf (0-2); Squamous Epithelial Cell Urine Many /hpf (Few); Urobilinogen Urine Negative mg/dL (<2.0); WBC Urine >75 /hpf
[2020-01-05 00:06] LABS: Lactic Acid Reflex 0.5 mmol/L (0.7-2.1)
[2020-01-05 00:08] LABS: CRP 2.9 mg/dL (<1.0); INR 1.1; Lipase 70 U/L (23-300); Prothrombin Time 13.5 Seconds (11.1-14.7)
[2020-01-05 00:09] LABS: Partial Thromboplastin Time 31.7 SECONDS (22.3-36.8)
[2020-01-05 00:11] LABS: D Dimer 0.64 ug/mL (<0.48)
[2020-01-05 00:14] VITALS: BP 139/86; PULSE 94; RESP 20; O2SAT 97
--- NOTE | 2020-01-05 00:22 | ED.GENADULT ---
HPI - General Adult General Chief complaint: Unspecified Stated complaint: BACK PAIN Time Seen by Provider: 01/04/20 22:30 Source: patient Mode of arrival: ambulatory Limitations: no limitations History of Present Illness HPI narrative: This patient is a 44 year old female who presents for evaluation of right posterior lower rib pain starting tonight. Patient states she was sitting when she developed sudden pain . This pain is worse with breathing and this is causing her sob. She denies cough, nausea, vomiting or abdominal pain. This pain does not radiated . She states she has not taken any medication for her pain. She had similar pain 1 month ago and she states she is getting a lung evaluation as she is schedule for bronchoscopy soon. She denies OCP, leg pain and swelling or history of dVt PE. Related Data Home Medications Medication Instructions Recorded Confirmed cyclobenzaprine 10 mg PO BID 12/01/19 12/31/19 amantadine HCl 100 mg capsule 100 mg PO BID 12/27/19 12/31/19 dimethyl fumarate 120 mg 120 mg PO BID 12/27/19 12/31/19 capsule,delayed release oxybutynin chloride 5 mg tablet 5 mg PO BID 12/27/19 12/31/19 paroxetine HCl 10 mg tablet 10 mg PO DAILY 12/27/19 12/31/19 aspirin 325 mg PO BID 12/31/19 12/31/19 Allergies Allergy/AdvReac Type Severity Reaction Status Date / Time codeine Allergy Mild facial Verified 12/31/19 15:18 swelling latex Allergy Mild Rash Verified 12/31/19 15:18 cocoa butter Allergy Swelling Verified 12/31/19 15:18 coconut Allergy Swelling Verified 12/31/19 15:18 of Lip/Tongue/Throat Review of Systems Review of Systems: All systems reviewed & are unremarkable except as noted in HPI and below Constitutional: Constitutional: Denies chills and Denies fever(s) Cardiovascular: Cardiovascular: Denies chest pain and Denies radiating jaw, neck or arm pain Respiratory: Respiratory: Denies cough, Reports dyspnea and Denies wheezing Gastrointestinal: Gastrointestinal: Denies abdominal pain, Denies diarrhea, Denies nausea and Denies vomiting Genitourinary: Genitourinary: Denies hematuria and Denies dysuria Musculoskeletal: Musculoskeletal: Reports back pain Integumentary/Breasts: Skin/Breast: Reports rash PMFSH Past Medical History Medical History (Updated 01/05/20 @ 01:55 by Angie Sung MD) Asthma COPD (chronic obstructive pulmonary disease) Depression with anxiety Multiple sclerosis Vaginal mass vaginal wall lesion that was nonmalignant by bx 11/2004 Surgical History Surgical History H/O section with one miscarriage; x3 H/O hernia repair left 01/2004 H/O: hysterectomy TATA 06/2004 History of cholecystectomy Hx of knee surgery left Hx of shoulder surgery 08/2005 Family History Family History (Updated 12/01/19 @ 08:50 by Bernardino Trujillo MD) Mother Hypertension Diabetes mellitus CHF (congestive heart failure) Son Seizure in Social History Social History (Updated 12/01/19 @ 09:12 by Bernardino Trujillo MD) Social History: Hx of methamphetamine use. Smokes 1ppd x 33 yrs ( she started at age 11yo). No history of IV drug use. Lives at home with her son and daughter and boyfriend. Her other child has moved out. She denies alcohol use. She wishes to make herself a DNR. She nominates her friend Bev to be the individual would make medical decisions for her if she is not able. Smoking packs per day: 1 Smoking cigarettes per day: 20.0 Smoking status: Current every day smoker Tobacco type: cigarettes Second hand tobacco smoke exposure: Yes Alcohol intake: former Substance use: never Gender identity (if verbalized by the patient): Female Spiritual care concerns: No Exam Const: General: alert Orientation/consciousness: patient oriented x3 HENMT: Face and sinus: face symmetric Mouth: Yes Normal
--- NOTE | 2020-01-05 00:44 | PC.NURSE ---
Patient being taken to CT.
[2020-01-05 01:02] LABS: Estimated CRCL calculation 97 ml/min; Estimated Glomerular Filt Rate > 60
[2020-01-05] MEDS: KETOROLAC 30 MG/ML VIAL (*BKC) IV PUSH (02:14)
[2020-01-05 02:35] VITALS: BP 140/87; PULSE 93; RESP 20; O2SAT 97
== END 2020-01-05 02:37 | disposition home or self-care (01) ==
PROVIDERS: Emergency Provider General Practice
DX: J98.4 Other disorders of lung (principal); R10.9 Unspecified abdominal pain; N39.0 Urinary tract infection, site not specified; J44.9 Chronic obstructive pulmonary disease, unspecified; F41.8 Other specified anxiety disorders; G35 Multiple sclerosis; F17.210 Nicotine dependence, cigarettes, uncomplicated; Z79.82 Long term (current) use of aspirin
CPT/HCPCS: 36415; 36600; 71275; 74018; 74176; 81001; 82375; 82805; 83050; 83605; 83690; 85025; 85380; 85610; 85730; 86140; 87086; 87635; 96365; 96375; 99284; C9803; J0131; J0696; J1885; Q9967; U0003

== ENCOUNTER 2020-01-07 17:30 | Observation (INO) | payer OTHER, SELFPAY ==
[2019-12-31 15:25] VITALS: BMI 34.4
[2020-01-07] VITALS (11 sets, daily range): BP systolic 113–141; BP diastolic 64–88; PULSE 82–104; RESP 17–36; TEMP 36.1–36.9; O2SAT 93–100
--- NOTE | ~2020-01-07 | XR_ITS ---
EXAMINATION: XR chest 1V portable DATE: 01/08/2020 09:44 INDICATION: Interstitial lung disease post bronchoscopy with biopsy TECHNIQUE: frontal view of the chest was obtained. COMPARISON: Chest radiograph dated 01/07/2020 FINDINGS: Pulmonary vascular congestion with interval improvement in now minimal perihilar pulmonary edema. No new airspace opacities, pleural effusion or pneumothorax. Mild cardiomegaly. IMPRESSION: 1. Cardiomegaly with interval improvement in now minimal perihilar edema. Reviewed, dictated and finalized at location A.
--- NOTE | ~2020-01-07 | XR_ITS ---
EXAMINATION: XR chest 1V portable EXAM DATE: 01/07/2020 14:15 INDICATION: Post bronchoscopy. TECHNIQUE: Portable AP frontal chest x-rays was obtained. Comparison is made to prior examination the [facility] 12/01/2019. FINDINGS: Initial image is underpenetrated at the lung bases. There is mild cardiomegaly. There is pu lmonary vascular congestion and suspicion of perihilar pulmonary airspace disease, distribution most consistent with pulmonary edema but please clinically correlate. No pleural effusions or pneumothorax . IMPRESSION: Development of congestive changes. Ill-defined perihilar opacities, distribution most co nsistent with pulmonary edema. Infectious process not excludable. Clinical correlation indicated. Reviewed, dictated and finalized at location B. IMPRESSION: Development of congestive changes. Ill-defined perihilar opacities , distribution most consistent with pulmonary edema. Infectious process not exc ludable. Clinical correlation indicated.
--- NOTE | ~2020-01-07 | US_ITS ---
EXAMINATION: US venous doppler [facility] DATE: 01/08/2020 09:52 INDICATION: Lower limb swelling TECHNIQUE: Grayscale ultrasound images without and with compression and Doppler ultrasound images of the bilateral lower extremity veins were obtained. COMPARISON: None. FINDINGS: The visualized portions of right common femoral vein, profunda (deep) femoral vein, femoral vein, pop liteal vein, posterior tibial veins, peroneal veins, gastrocnemius vein and greater saphenous vein ou tflow are patent. Increased venous pulsatility which can be seen extending below the knee to the popl iteal and gastrocnemius veins. The visualized portions of left common femoral vein, profunda femoral vein, femoral vein, popliteal v ein, posterior tibial veins, peroneal veins, gastrocnemius vein and greater saphenous vein outflow ar e patent. Increased venous pulsatility which can be seen extending below the knee to the popliteal an d gastrocnemius veins. IMPRESSION: 1. No deep venous thrombosis in either lower limb. 2. Increased venous pulsatility which can be secondary to tricuspid regurgitation, right heart failur e or other cause of elevated right heart pressures. Reviewed, dictated and finalized at location A. IMPRESSION: 1. No deep venous thrombosis in either lower limb. 2. Increased venous pulsatility which can be secondary to tricuspid regurgitati on, right heart failure or other cause of elevated right heart pressures.
--- NOTE | ~2020-01-07 | XR_ITS ---
EXAMINATION: XR fl bronchoscopy w imaging INDICATION: Bronchoscopy with fluoroscopic guidance, interstitial pulmonary disease TECHNIQUE: Two intraoperative fluoroscopic images are submitted for review. Total fluoroscopic time i s 14.3 seconds. COMPARISON: None available FINDINGS: Fluoroscopic images demonstrate a bronchoscope in the left mainstem pulmonary bronchus. Ple ase refer to procedure note for full details. IMPRESSION: 1. Bronchoscope in the left mainstem bronchus. Please refer to procedure note for full details. Reviewed, dictated and finalized at location A. IMPRESSION: 1. Bronchoscope in the left mainstem bronchus. Please refer to procedure note f or full details.
--- NOTE | 2020-01-07 10:38 | WPDANESEPPF ---
Anes - Initial Pre Proc Eval Procedure: Operation Date: 01/07/20 12:00 Proposed Procedures p Flexible Bronchoscopy With Fluoroscopy - Leigha Shea MD Date/Time: 01/07/20 10:38 Surgeon: Leigha Shea MD Pre Op Diagnosis: Interstitial Lung Disease Patient Data Age: 44 Gender: F Height: 1.8 m Weight: 117.4 kg Last Vital Signs Temp 36.4 C 01/07/20 10:24 Pulse 102 H 01/07/20 10:24 Resp 24 H 01/07/20 10:24 BP 141/87 H 01/07/20 10:24 Pulse Ox 97 01/07/20 10:24 Allergies Allergy/AdvReac Type Severity Reaction Status Date / Time codeine Allergy Mild facial Verified 12/31/19 15:18 swelling latex Allergy Mild Rash Verified 12/31/19 15:18 cocoa butter Allergy Swelling Verified 12/31/19 15:18 coconut Allergy Swelling Verified 12/31/19 15:18 of Lip/Tongue/Throat Home Medications Medication Instructions Recorded Confirmed Type cyclobenzaprine 10 mg PO BID 12/01/19 12/31/19 History budesonide-formoterol [Symbicort] 2 puff INHALATION Q8HRT #10.2 gm 12/02/19 12/31/19 Rx tiotropium bromide [Spiriva with 1 cap INHALATION DAILY@0800 #30 12/02/19 12/31/19 Rx HandiHaler] inhalation amantadine HCl 100 mg capsule 100 mg PO BID 12/27/19 12/31/19 History dimethyl fumarate 120 mg 120 mg PO BID 12/27/19 12/31/19 History capsule,delayed release oxybutynin chloride 5 mg tablet 5 mg PO BID 12/27/19 12/31/19 History paroxetine HCl 10 mg tablet 10 mg PO DAILY 12/27/19 12/31/19 History aspirin 325 mg PO BID 12/31/19 12/31/19 History nitrofurantoin macrocrystal 100 mg PO Q12H #14 cap 01/05/20 Rx Patient hx anesthesia problems: post op nausea/vomiting Family hx anesthesia problems: none PMFSH Social History Social History (Updated 01/06/20 @ 17:14 by Leigha Shea MD) Social History: Hx of methamphetamine use. Smokes 1ppd x 33 yrs ( she started at age 11yo). No history of IV drug use. Lives at home with her son and daughter and boyfriend. Her other child has moved out. She denies alcohol use. She wishes to make herself a DNR. She nominates her friend Bev to be the individual would make medical decisions for her if she is not able. Smoking packs per day: 1 Smoking cigarettes per day: 20.0 Smoking status: Former smoker Tobacco type: cigarettes Second hand tobacco smoke exposure: Yes Smoking end date: 12/15/19 Additional smoking assessment comments: only 1 cigarette in the last month Alcohol intake: former Substance use: never Gender identity (if verbalized by the patient): Female Spiritual care concerns: No Anes - Eval Final PreProcedure Day of Procedure 01/07/20 10:38 Patient weight: obese Heart: regular rate and rhythm Lungs: clear to auscultation and normal air movement Airway: Mallampati scale class II Neurological: alert and oriented Last oral intake: >/= 8 hours ASA classification: III Emergent: no Anesthetic plan: proceed Anesthesia type and monitoring: general ETT and standard monitoring Informed Consent: The patient's anesthetic plan and its attendant risks and benefits were discussed with the patient/family/POA. Questions were solicited and answers provided to the satisfaction of the patient/family/POA.
[2020-01-07] MEDS: SCOPOLAMINE 1.5 MG PATCH TRANSDERM (10:49)
[2020-01-07] MEDS: LACTATED RINGERS 1,000 ML 150 ML IV CONT (11:48)
--- NOTE | 2020-01-07 13:57 | SUR.OPER ---
BAL 150ML, WASHINGS 15ML, ICED NS 5ML. BAL RETURN 25ML
[2020-01-07] MEDS: MIDAZOLAM HCL 2 MG/2 ML VIAL IV PUSH (14:18)
--- NOTE | 2020-01-07 14:43 | SUR.PHASEII ---
Spoke with patient at twelve and twelve thirty this afternoon to let her know that the procedure will be late. Patient was on the phone with her family at this time. 1445 Spoke with daughter Elizabeth on the phone to update on her mom.
--- NOTE | 2020-01-07 14:47 | ECG_ITS ---
Measurements Intervals [place] Rate: 84 P: 61 FL: 131 QRS: 74 QRSD: 83 T: 28 QT: 373 QTc: 443 Interpretive Statements SINUS RHYTHM POSSIBLE LEFT ATRIAL ENLARGEMENT DELAYED PRECORDIAL R/S TRANSITION BORDERLINE T WAVE ABNORMALITY- ANT/INF LEADS BORDERLINE ECG Electronically Signed On 01-07-2020 16:08:32 CDT by Jonah Gómez D.O.
[2020-01-07] MEDS: FUROSEMIDE INJ 40 MG/4 ML VIAL 20 MG IV PUSH (15:02)
[2020-01-07 15:19] LABS: Appearance Bronchial Fluid Clear; Color Bronchial Fluid Colorless; Source Bronchial Fluid Bronchial Lavage
[2020-01-07 15:26] LABS: Lymphocytes Bronchial Fluid 0 %; Monocytes Bronchial Fluid 2 %; Neutrophils Bronchial Fluid 5 %
[2020-01-07 15:27] LABS: Eosinophils Bronchial Fluid 0 %; Macrophages Bronchial Fluid 72
[2020-01-07 15:29] LABS: Other Cells Bronchial Fluid 21 %
--- NOTE | 2020-01-07 19:08 | PM.IMHP ---
H&P: HPI History of Present Illness Chief complaint: Interstitial Lung Disease Narrative: Tatiana Elder is a 44 year old female who has a history of multiple sclerosis for at least the last 15 years. The patient was last admitted here on November 30 of this year and discharged the next day. Patient was diagnosed with hypersensitivity pneumonitis. Pulmonary consult was obtained because it felt that the patient had a unique form of ILD with a cystic lung disease. She was treated with prednisone and clindamycin. RF was negative. CT of the abdomen show no acute findings. Patient found to have a negative SARs covid 19. Dr. Shea then saw the patient in the office on 12/27/2019. 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 She does have history of COPD and recently stop smoking. Patient underwent a bronchoscopy today and became combative when she awoke from the anesthesia. The patient's saturations were decreasing during the biopsy and cultures were obtained. Was obtained and read as development of congestive changes. Ill-defined perihilar pace disease, which distribution most consistent pulmonary edema infectious process not excludable. Also patient has some edema to her lower extremities the left greater than the right. The patient was given IV Lasix in the GI lab. Patient was a direct admit from the procedure bronchoscopy. Patient has not had a previous history of having congestive heart failure nor has she had an echo. Date of service 01/07/2020 Review of Systems Review of Systems: All systems reviewed & are unremarkable except as noted in HPI and below Constitutional: Constitutional: Reports as per HPI and Reports no additional constitutional complaints Eyes: Eyes: Reports as per HPI and Reports no additional eye complaints ENT: Reports system reviewed and no additional complaints, except as documented and Reports Normal hearing present Cardiovascular: Cardiovascular: Reports no additional cardiovascular complaints Respiratory: Respiratory: Reports no additional respiratory complaints and Reports no additional respiratory complaints Gastrointestinal: Gastrointestinal: Reports as per HPI and Reports no additional gastrointestinal complaints Musculoskeletal: Musculoskeletal: Reports no additional musculoskeletal complaints Integumentary/Breasts: Skin/Breast: Reports system reviewed and no additional complaints, except as docu and Reports as per HPI Neurologic: Reports system reviewed and no additional complaints, except as documented, Reports as per HPI and Reports Normal hearing present Psychiatric: Psychiatric: Reports no additional psychiatric complaints and Reports as per HPI Endocrine: Endocrine: Reports no additional endocrine complaints Hematologic/Lymphatic: Hematologic/Lymphatic: Reports no additional hematologic/lymphatic complaints Allergic/Immunologic: Allergic/Immunologic: Reports no additional allergic/immunologic complaints [facility] Past Medical History Medical History (Updated 01/07/20 @ 19:27 by Susana Marrero NP) Asthma COPD (chronic obstructive pulmonary disease) Depression with anxiety Multiple sclerosis Vaginal mass vaginal wall lesion that was nonmalignant by bx 11/2004 Surgical History Surgical History H/O section with one miscarriage; x3 H/O hernia repair left 01/2004 H/O: hysterectomy TATA 06/2004 History of cholecystectomy Hx of knee surgery left Hx of shoulder surgery 08/2005 Family History Family History Mother Diabetes mellitus CHF (congestive heart failure) Hypertension Kidney failure Son Seizure in infant Social History Social History (Updated 01/07/20 @ 19:22 by Susana Marrero NP) Social History: Hx of methamphetamine use
[2020-01-07] MEDS: NITROFURANTOIN MONOHYD MACROCR 100 MG CAP PO (20:09)
[2020-01-07] MEDS: ASPIRIN 325 MG TABLET PO (20:09)
[2020-01-07] MEDS: amantadine HCL 100 MG CAPSULE PO (20:09)
[2020-01-07] MEDS: OXYBUTYNIN CHLORIDE 5 MG TABLET PO (20:09)
[2020-01-07] MEDS: CYCLOBENZAPRINE HCL 10 MG TABLET PO (20:10)
[2020-01-07] MEDS: ACETAMINOPHEN 325 MG TABLET 650 MG PO (20:10)
[2020-01-08] VITALS (10 sets, daily range): BP systolic 119–153; BP diastolic 81–92; PULSE 85–117; RESP 18–20; TEMP 36.1–36.4; O2SAT 92–99
--- NOTE | 2020-01-08 | ECHO_ITS ---
Patient Info Name: Tatiana Elder Age: 44 years : 1975 Gender: Female Ht: 71 in Wt: 259 lbs BSA: 2.47 m2 HR: 88 bpm BP: 119 / 81 mmHg Heart Rhythm: Sinus Rhythm Technical Quality: Good Exam Date: 01/08/2020 11:49 AM Exam Location: [facility] Patient Status: Inpatient Admit Date: 01/07/2020 Staff Ordering Physician: Susana Marrero NP Child Care Development Specialist: Chriss Hughes RDCS Attending Provider: Angella Mendez PA-C Referring Physician: Janes HARVEY; Exam Type: CA echo dop color flow w con Study Info Indications J81.0 - Acute pulmonary edema Complete two-dimensional, color flow and Doppler transthoracic echocardiogram is performed with contrast to opacify the left ventricle and to improve the deliniation of the left ventricle endocardial borders. Contrast/Agitated Saline Contrast/Ag. Saline: Definity Amount: 3.00 ml Existing IV Access: Yes History/Risk Factors Pulmonary edema, COPD, chest pain, edema. Summary 1. Left ventricular wall thickness and mass index are normal with no regional wall motion abnormalities with moderate global hypokinesis, with an estimated ejection fraction of 35% calculated, 40% by visual assessment. Diastolic dysfunction grade 2 is present. 2. Right ventricular chamber dimension is mildly enlarged, with moderate global hypokinesis. 3. Left atrial chamber dimension is moderately enlarged. 4. The mitral valve has thickened leaflets, restricted leaflet motion and moderate mitral annular calcification present. There is mild mitral stenosis with a valve area of 3.3 cm2 and a mean gradient of 0.8 mm Hg. There is moderately severe to severe mitral regurgitation present. PISA qas 1.2 cm. 5. There is moderate tricuspid valve regurgitation. 6. Severe pulmonary hypertension, estimated pulmonary arterial systolic pressure is 67 mmHg. 7. Dilated inferior vena cava with <50% collapse upon inspiration consistent with elevated right atrial pressure, 15 mmHg. Left Ventricle Left ventricular wall thickness and mass index are normal with no regional wall motion abnormalities with moderate global hypokinesis, with an estimated ejection fraction of 35% calculated, 40% by visual assessment. Diastolic dysfunction grade 2 is present. Left ventricular chamber dimension is normal. Left ventricular systolic function is moderately reduced, estimated at 35-40%. There is no increased left ventricular wall thickness. Left ventricular septal wall motion is abnormal with septal motion related to bundle branch block. The left ventricular diastolic function is grade II diastolic dysfunction. Right Ventricle Right ventricular chamber dimension is mildly enlarged, with moderate global hypokinesis. Right ventricular chamber dimension is mildly enlarged. Right ventricular systolic function is reduced. Left Atria Left atrial chamber dimension is moderately enlarged. Right Atria Right atrial chamber dimension is normal. Aortic Valve The aortic valve is trileaflet. There is no aortic valve sclerosis. There is no aortic valve stenosis. There is no aortic valve regurgitation. Pulmonic Valve The pulmonic valve is normal. There is no pulmonic valve stenosis. There is trace pulmonic regurgitation. Mitral Valve The mitral valve has thickened leaflets, restricted leaflet motion and moderate mitral annular calcification present. There is mild mitral stenosis with a valve area of 3.3 cm2 and a mean gradient of 0.8 mm Hg. Th
[2020-01-08 06:34] LABS: Basophils Percent Auto 0.3 % (0.2-1.2); Eosinophils Absolute Auto 0.1 K/mm3 (0-0.3); Eosinophils Percent Auto 0.5 % (0-4.4); Hematocrit 33.2 % (37.0-47.0); Immature Granulocyte Absolute 0.04 K/mm3 (0.00-0.031); Immature Granulocyte Percent A 0.4 % (0-0.5); Lymphocytes Percent Auto 12.8 % (18.3-44.2); Mean Corpuscular HGB Conc 30.1 g/dl (32-36); Mean Corpuscular Hemoglobin 23.4 pg (26-34); Mean Corpuscular Volume 77.8 fl (80-100); Mean Platelet Volume 9.8 fl (7.4-10.4); Monocytes Absolute Auto 0.4 K/mm3 (0.1-0.6); Monocytes Percent Auto 4.3 % (2.6-8.5); Neutrophils Absolute Auto 7.7 K/mm3 (1.3-6.7); Neutrophils Percent Auto 81.7 % (45.5-73.1); Platelet Count Result 387 k/mm3 (150-375); Red Blood Count 4.27 M/mm3 (4.2-5.4); Red Cell Distribution Width 19.2 % (11.5-14.5); White Blood Count 9.4 K/mm3 (4.5-10.0)
[2020-01-08 06:48] LABS: Alanine Aminotransferase 19 U/L (4-35); Alkaline Phosphatase 62 U/L (38-126); Aspartate Amino Transferase 23 U/L (14-36); Bilirubin,Total 0.3 mg/dL (0.2-1.3); Blood Urea Nitrogen 15 mg/dL (7-17); CRP 3.5 mg/dL (<1.0); Calcium 8.7 mg/dL (8.4-10.2); Carbon Dioxide 27 mmol/L (22-30); Chloride 102 mmol/L (98-107); Estimated CRCL calculation 113 ml/min; Estimated Glomerular Filt Rate > 60; Glucose 150 mg/dL (65-105); Potassium 3.9 mmol/L (3.4-5.0); Sodium 136 mmol/L (137-145)
[2020-01-08 06:52] LABS: NT Pro B Type Natriuretic Pept 2570 PG/ML (5-100)
[2020-01-08 07:31] LABS: Thyroid Stimulating Hormone Reflex 0.393 uIU/mL (0.465-4.68)
--- NOTE | 2020-01-08 07:58 | WPDANESPN ---
Anes - Prog Note Post-Op Date/Time: 01/08/20 07:58 Cardiovascular status: normal Respiratory status: normal Airway patency: baseline Mental status: baseline Post-Op hydration status: normal Vital Signs: Last Vital Signs Temp 36.4 C 01/08/20 05:10 Pulse 85 01/08/20 05:10 Resp 20 01/08/20 05:10 BP 119/81 01/08/20 05:10 Pulse Ox 96 01/08/20 05:10 I/O: Intake & Output 01/07/20 01/07/20 01/08/20 15:59 23:59 07:59 Intake Total 0 1060 Output Total 425 Balance 0 635 Laboratory Tests 01/08/20 05:49 01/08/20 05:49 01/07/20 01/07/20 01/08/20 14:25 14:26 05:49 WBC 9.4 RBC 4.27 Hgb 10.0 L Hct 33.2 L MCV 77.8 L MCH 23.4 L MCHC 30.1 L RDW 19.2 H Plt Count 387 H MPV 9.8 Immature Gran % (Auto) 0.4 Neut % (Auto) 81.7 H Lymph % (Auto) 12.8 L Austin % (Auto) 4.3 Eos % (Auto) 0.5 Baso % (Auto) 0.3 Lymph # (Auto) 1.20 Austin # (Auto) 0.4 Eos # (Auto) 0.1 Baso # (Auto) 0.0 Abs Immat Gran (auto) 0.04 H Absolute Neuts (auto) 7.7 H Absolute Nucleated RBC 0.0 Nucleated RBC % 0.0 Sodium Potassium Chloride Carbon Dioxide BUN Creatinine Estim Creat Clear Calc Estimated GFR Glucose Calcium Magnesium Total Bilirubin AST ALT Alkaline Phosphatase C-Reactive Protein NT-Pro-B Natriuret Pep Total Protein Albumin TSH (Reflex) Free T4 Bronch Specimen Source Bronchial lavage Bronchial Fluid Color Colorless Bronchial Fluid Appearance Clear Bronchial Neutrophils 5 Bronchial Lymphocytes 0 Bronchial Monocytes 2 Bronchial Eosinophils 0 Bronchial Macrophages 72 Bronchial Other Cells 21 Resp Virus Cult Rapid Pending 01/08/20 01/08/20 01/08/20 05:49 05:49 05:49 WBC RBC Hgb Hct MCV MCH MCHC RDW Plt Count MPV Immature Gran % (Auto) Neut % (Auto) Lymph % (Auto) Austin % (Auto) Eos % (Auto) Baso % (Auto) Lymph # (Auto) Austin # (Auto) Eos # (Auto) Baso # (Auto) Abs Immat Gran (auto) Absolute Neuts (auto) Absolute Nucleated RBC Nucleated RBC % Sodium 136 L Potassium 3.9 Chloride 102 Carbon Dioxide 27 BUN 15 D Creatinine 0.80 Estim Creat Clear Calc 113 Estimated GFR > 60 Glucose 150 H Calcium 8.7 Magnesium 2.0 Total Bilirubin 0.3 AST 23 ALT 19 Alkaline Phosphatase 62 C-Reactive Protein 3.5 H NT-Pro-B Natriuret Pep 2570 H Total Protein 7.0 Albumin 4.0 TSH (Reflex) 0.393 L Free T4 Pending Bronch Specimen Source Bronchial Fluid Color Bronchial Fluid Appearance Bronchial Neutrophils Bronchial Lymphocytes Bronchial Monocytes Bronchial Eosinophils Bronchial Macrophages Bronchial Other Cells Resp Virus Cult Rapid Post-procedural complaints: none Patient Feedback: Patient satisfied with anesthetic care.
[2020-01-08] MEDS: FUROSEMIDE INJ 40 MG/4 ML VIAL 20 MG IV PUSH (08:52)
[2020-01-08] MEDS: ASPIRIN 325 MG TABLET PO ×2 (08:52→17:01)
[2020-01-08] MEDS: CYCLOBENZAPRINE HCL 10 MG TABLET PO ×2 (08:52→20:26)
[2020-01-08] MEDS: OXYBUTYNIN CHLORIDE 5 MG TABLET PO ×2 (08:52→17:01)
[2020-01-08] MEDS: PAROXETINE 10 MG TABLET PO (08:52)
[2020-01-08] MEDS: amantadine HCL 100 MG CAPSULE PO ×2 (08:53→17:01)
[2020-01-08] MEDS: NITROFURANTOIN MONOHYD MACROCR 100 MG CAP PO ×2 (08:53→20:26)
[2020-01-08 09:46] LABS: HIV 1/2 Ab P24 Ag Result Negative (Negative)
[2020-01-08 11:30] LABS: Free T4 Free Thyroxine Reflex 1.09 ng/dL (0.78-2.19)
--- NOTE | 2020-01-08 11:34 | PM.PNPUL ---
Progress Note: A&P Assessment and Plan (1) ILD (interstitial lung disease): Code(s): J84.9 - Interstitial pulmonary disease, unspecified Status: Acute Assessment and Plan: - Pulmonary [place] Histocytosis is less likely given BAL findings but LIP is still possible - She is clinically improving since quiting smoking many weeks ago - HIV test ordered - consider outpatient Echo - Will f/u as outpatient in a few weeks. - should go home on Symbicort 160/4.5 mcg 2 puffs bid Time Spent With Patient Time with patient: 15 - 25 minutes Subjective Date/time seen: 01/08/20 11:34 Interval history: Feeling better today. Does not remember events from yesterday's bronchoscopy. She developed some post op possibly pulmonary edema and was diuresed. She Feels well this morning and has no complaints of dyspnea, cough, orthpnea or PND. CXR this morning shows some prominent interstitial findings but this could be from underlying ILD. There is borderline cardiomegaly. The BAL cell count does not suggest Pulmonary [place] Histocytosis but Lymphocytic Interstitial Pneumonia is still possible. The patient would like to go home and f/u with us as an outpatient regarding pending results. Review of Systems Review of Systems: All systems reviewed & are unremarkable except as noted in HPI and below Exam Const: General: comfortable and no acute distress HENMT: Mouth: Yes moist mucous membranes Neck: Neck: supple and no JVD Resp: Auscultation: wheezes and diminished lung sounds Cardio: Rate: regular rate Rhythm: regular rhythm Heart sounds: no gallops and no murmurs GI: Auscultation: normal bowel sounds Skin: General skin exam: normal color Neuro: Speech: normal speech Extrem: General: normal to inspection Psych: Mental Status: mental status grossly normal Objective Data Vital Signs Vital Signs: Vital Signs - 24 hr 01/07/20 14:04 01/07/20 14:14 01/07/20 14:24 Temperature 36.1 C L Pulse Rate 98 94 104 H Respiratory Rate 17 27 H 36 H Blood Pressure 135/71 132/64 136/88 Pulse Oximetry 100 100 100 01/07/20 14:34 01/07/20 14:44 01/07/20 14:54 Temperature Pulse Rate 93 98 82 Respiratory Rate 17 21 H 23 H Blood Pressure 130/83 130/83 125/71 Pulse Oximetry 100 100 100 01/07/20 15:04 01/07/20 15:14 01/07/20 20:00 Temperature Pulse Rate 85 86 93 Respiratory Rate 25 H 27 H Blood Pressure 113/64 128/74 Pulse Oximetry 97 93 01/07/20 21:00 01/08/20 00:00 01/08/20 04:00 Temperature 36.9 C Pulse Rate 102 H 100 90 Respiratory Rate 24 H Blood Pressure 129/77 Pulse Oximetry 96 01/08/20 05:10 01/08/20 08:00 Temperature 36.4 C Pulse Rate 85 86 Respiratory Rate 20 Blood Pressure 119/81 Pulse Oximetry 96 Intake/Output Intake/Output: Intake & Output 01/05/20 01/06/20 01/07/20 01/08/20 23:59 23:59 23:59 23:59 Intake Total 0 1300 Output Total 425 Balance 0 875 Meds/Results Medications: Active Medications Generic Name Dose Route Start Last Admin Trade Name Freq PRN Reason Stop Dose Admin Acetaminophen 650 mg 01/07/20 19:50 01/07/20 20:10 Tylenol Tablet PO 650 mg Q4H PRN Administration Mild Pain (1-3) or Fever Amantadine HCl 100 mg 01/07/20 17:00 01/08/20 08:53 Symmetrel PO 100 mg BID ESTHER Administration Aspirin 325 mg 01/07/20 17:00 01/08/20 08:52 Aspirin PO 325 mg BID ESTHER Administration Budesonide/Formoterol Fumarate 2 puff 01/08/20 08:00 01/08/20 08:30 Symbicort 160-4.5 Mcg (*Sp) Inhaler INHALATION 2 puff Q12HRT ESTHER Administration Cyclobenzaprine HCl 10 mg 01/07/20 21:00 01/08/20 08:52 Flexeril PO 10 mg Q12HR ESTHER Administration Furosemide 20 mg 01/08/20 09:00 01/08/20 08:52 Lasix Inj IV PUSH 20 mg DAILY ESTHER Administration Nitrofurantoin Macrocrystals 100 mg 01/07/20 21:00 01/08/20 08:53 Macrobid PO 100 mg Q12HR ESTHER Administration Non-Formulary Medication
[2020-01-08] MEDS: PERFLUTREN LIPID MICROSPHERES 1.5 ML VIAL DILUTED TO 10 ML TOTAL VOLUME IV PUSH (12:20)
[2020-01-08 12:45] LABS: Total Triiodothyronine (T3) 0.91 NG/ML (0.97-1.69)
--- NOTE | 2020-01-08 16:37 | PM.IMPN ---
Progress Note: A&P Assessment and Plan (1) Acute systolic (congestive) heart failure: Code(s): I50.21 - Acute systolic (congestive) heart failure Status: Acute Assessment and Plan: -----echo shows new systolic dysfunction which could actually be the cause of her dyspnea on exertion and cough. I have talked to Dr. Liz with [facility] about this finding and she is going to see the patient. I am going to await for her recommendations before I change any medications. She will likely benefit from an AINSLEY-inhibitor, beta-ahsan, and carvedilol and diuretic therapy. She is already on aspirin daily. (2) Mitral regurgitation: Code(s): I34.0 - Nonrheumatic mitral (valve) insufficiency Status: Acute Assessment and Plan: -----moderate to severe. Will await cardiology's recommendations. (3) Pulmonary edema: Code(s): J81.1 - Chronic pulmonary edema Status: Acute Assessment and Plan: -----continue IV Lasix at this time. See above (4) COPD (chronic obstructive pulmonary disease): Code(s): J44.9 - Chronic obstructive pulmonary disease, unspecified Status: Chronic Assessment and Plan: -----Continue with home inhalers. She sees Dr. Shea. Bronch 01/06. Pulmonology note reviewed (5) Depression with anxiety: Code(s): F41.8 - Other specified anxiety disorders Status: Chronic Assessment and Plan: ----Continue with Paxil (6) ILD (interstitial lung disease): Code(s): J84.9 - Interstitial pulmonary disease, unspecified Status: Acute Assessment and Plan: -----cytology fluid showed pulmonary macrophages with hemosiderin with no malignant cells. Await further biopsy results and cultures. (7) Multiple sclerosis: Code(s): G35 - Multiple sclerosis Status: Chronic Assessment and Plan: -----Continue Flexeril, Symmetrel, Ditropan, and Tecfidera. No exacerbation noted on exam. Time Spent With Patient Time with patient: 25 - 35 minutes Subjective Date/time seen: 01/08/20 16:37 Interval history: Pt is a 44-year-old female with a past medical history of MS who was seen today. Patient states that she feels okay today and would like to go home. She says that she is still having dyspnea on exertion. She cannot even walk to the bathroom without feeling short of breath. She does not have any shortness of breath at rest. She occasionally has chest pain and feelings like her heart is racing. This happens randomly and even when she is just sitting down watching TV. It can last from anywhere from 1 minute to 20 minutes. She has never had this worked up before. She says that her chest pain and heart racing started about a couple months ago and that is when the shortness of breath with walking short distance really started. Her mom of CHF in her 60s. She has also noticed some intermittent swelling in her lower extremities. She has had a cough for the last 6 months. Review of Systems Review of Systems: All systems reviewed & are unremarkable except as noted in HPI and below Exam Narrative: Exam Narrative: General: Overweight patient resting comfortably in the chair in no acute distress HEENT: normocephalic Neck: supple Neuro: Alert and oriented x4 CV:RRR showed occasional sinus tachycardia and occasional PVCs Resp:CTA Abd: Soft, non distended. No pain to palpation. Positive bowel sounds Extremities: Swelling in the lower extremities, no pain to palpation Objective Data Vital Signs Vital Signs: Vital Signs - 24 hr 01/07/20 20:00 01/07/20 21:00 01/08/20 00:00 Temperature 98.4 F Pulse Rate 93 102 H 100 Respiratory Rate 24 H Blood Pressure 129/77 Pulse Oximetry 96 01/08/20 04:00 01/08/20 05:10 01/08/20 08:00 Temperature 97.6 F Pulse Rate 90 85 86 Respiratory Rate 20 Blood Pressure 119/81 Pulse Oximetry 96 01/08/20 12:00
--- NOTE | 2020-01-08 16:59 | WPDCN ---
Assessment and Plan Assessment and plan (1) Acute systolic (congestive) heart failure: Code(s): I50.21 - Acute systolic (congestive) heart failure Status: Acute Assessment and Plan: Patient has acute systolic heart failure and was found to have a new cardiomyopathy, EF 40%. She also has moderately severe to severe mitral regurgitation (although her murmur is not impressive at all). The mitral valve itself looks very diseased, thickened, and calcified with a degree of mitral stenosis suggestive of rheumatic mitral valve disease, but the patient has no history of this as a child. For now, agree with diuresis, and I recommend she be sent home with Lasix and start lisinopril, spironolactone and carvedilol. I will follow her up in the office. I want to wait and see what the pulmonary diagnosis is, to see if we are dealing with pulmonic disease as well as cardiac disease, or this is all a manifestation of CHF. Ultimately likely will need a heart catheterization and mitral valve replacement if her pulmonic condition gives her a reasonable prognosis and permits. (2) Mitral regurgitation: Code(s): I34.0 - Nonrheumatic mitral (valve) insufficiency Status: Acute Assessment and Plan: Moderately severe to severe (3) Cardiomyopathy: Code(s): I42.9 - Cardiomyopathy, unspecified Status: Acute Assessment and Plan: Moderate global hypokinesis, EF 40% (4) Hypersensitivity pneumonitis: Code(s): J67.9 - Hypersensitivity pneumonitis due to unspecified organic dust Status: Acute Assessment and Plan: Biopsies and cultures done yesterday (5) Multiple sclerosis: Code(s): G35 - Multiple sclerosis Status: Chronic Assessment and Plan: Followed by in [place]. (6) COPD (chronic obstructive pulmonary disease): Code(s): J44.9 - Chronic obstructive pulmonary disease, unspecified Status: Chronic Assessment and Plan: Mild COPD, quit smoking recently (7) Sleep apnea: Code(s): G47.30 - Sleep apnea, unspecified Status: Acute Assessment and Plan: Boyfriend describes sleep apnea. [facility] Data of Consult Date/Time: 01/08/20 16:59 Requesting Physician: Angella Mendez PA-C Primary Care Provider: JONO,UMANG A PA-C Consult Narrative Narrative: Date of service: 01/08/2020 Tatiana Elder is a 44 year old female who I was asked to see at the request of Angella Mendez, hospitalist physician zoning assistant, for my advice and opinion regarding her abnormal echocardiogram. Her echo showed moderate left ventricular dysfunction and moderately severe to severe mitral regurgitation with an ejection fraction of 40%. She also has a history of multiple sclerosis followed by DR. Cole in [place] and is thought to have interstitial lung disease. Patient noted problems with cough for 4 months and shortness of breath 2 months ago. She came to the emergency room on 12/01/2019 complaining of shortness of breath, orthopnea, and chest discomfort. CT of the chest showed symmetric hazy ground-glass opacities. BNP was 688. Was thought to have a hypersensitivity pneumonitis and referred to Dr. Shea and Dr. China Houser who performed bronchoscopy yesterday with biopsies and cultures. She dropped her oxygen saturation during the procedure, became acutely short of breath after the procedure and was admitted. Chest x-ray is suggested new CHF, and proBNP was 2570. She has been diuresed with furosemide 20 mg IV push daily and is feeling better, now at baseline. The patient wears out just with showering. She has had 3-4 pillow orthopnea for the past 3 months. He has had new onset of swelling last weekend. She has had some substernal chest pain radiating to the back which is positional and pleuritic. She has had palpitations although no arrhythmias have been noted. She denies any fevers. She denies any history of rheum
[2020-01-08] MEDS: carvediloL 3.125 MG TABLET PO (20:26)
[2020-01-08] MEDS: ACETAMINOPHEN 325 MG TABLET 650 MG PO (20:27)
[2020-01-09] VITALS (8 sets, daily range): BP systolic 136–160; BP diastolic 79–88; PULSE 68–86; RESP 16–20; TEMP 36.3–36.6; O2SAT 98–99
[2020-01-09] MEDS: PAROXETINE 10 MG TABLET PO (10:01)
[2020-01-09] MEDS: CYCLOBENZAPRINE HCL 10 MG TABLET PO (10:01)
[2020-01-09] MEDS: amantadine HCL 100 MG CAPSULE PO (10:01)
[2020-01-09] MEDS: OXYBUTYNIN CHLORIDE 5 MG TABLET PO (10:01)
[2020-01-09] MEDS: ASPIRIN 325 MG TABLET PO (10:01)
[2020-01-09] MEDS: carvediloL 3.125 MG TABLET PO (10:01)
[2020-01-09] MEDS: SPIRONOLACTONE 25 MG TABLET PO (10:01)
[2020-01-09] MEDS: FUROSEMIDE INJ 40 MG/4 ML VIAL 20 MG IV PUSH (10:03)
[2020-01-09] MEDS: lisinopriL 10 MG TABLET PO (10:03)
[2020-01-09] MEDS: NITROFURANTOIN MONOHYD MACROCR 100 MG CAP PO (10:03)
[2020-01-09 12:17] LABS: Blood Urea Nitrogen 16 mg/dL (7-17); Calcium 9.1 mg/dL (8.4-10.2); Carbon Dioxide 31 mmol/L (22-30); Chloride 102 mmol/L (98-107); Estimated CRCL calculation 101 ml/min; Estimated Glomerular Filt Rate > 60; Glucose 96 mg/dL (65-105); Sodium 137 mmol/L (137-145)
[2020-01-09 12:26] LABS: NT Pro B Type Natriuretic Pept 1630 PG/ML (5-100)
--- NOTE | 2020-01-09 14:22 | PM.DS ---
DS: Admitting Diagnosis Admitting Diagnosis Admitting Diagnosis: Shortness of breath, pulmonary edema DS: Discharge Diagnosis Discharge Diagnosis (1) Acute systolic (congestive) heart failure: Code(s): I50.21 - Acute systolic (congestive) heart failure Status: Acute Assessment and Plan: -----echo shows new systolic dysfunction which could actually be the cause of her dyspnea on exertion and cough along with her lung disease. Cardiology has seen her and started her on the medications listed below. They are going to follow up with her outpatient and likely due a catheterization and valve replacement. (2) Respiratory bronchiolitis interstitial lung disease: Code(s): J84.115 - Respiratory bronchiolitis interstitial lung disease Status: Acute Assessment and Plan: -----Noted on biopsy. It is very important for the patient to not smoke. Will need to f/u with pulmonary outpatient. (3) Mitral regurgitation: Code(s): I34.0 - Nonrheumatic mitral (valve) insufficiency Status: Acute Assessment and Plan: -----moderate to severe. Follow-up cardiology outpatient (4) Pulmonary edema: Code(s): J81.1 - Chronic pulmonary edema Status: Acute Assessment and Plan: -----continue Lasix, her swelling has improved since being hospitalized (5) COPD (chronic obstructive pulmonary disease): Code(s): J44.9 - Chronic obstructive pulmonary disease, unspecified Status: Chronic Assessment and Plan: -----Continue with home inhalers. She sees Dr. Shea. Bronch 01/06. (6) Depression with anxiety: Code(s): F41.8 - Other specified anxiety disorders Status: Chronic Assessment and Plan: ----Continue with Paxil (7) ILD (interstitial lung disease): Code(s): J84.9 - Interstitial pulmonary disease, unspecified Status: Acute Assessment and Plan: -----cytology fluid showed pulmonary macrophages with hemosiderin with no malignant cells. Biopsy favors bronchiolitis with interstitial lung disease (8) Multiple sclerosis: Code(s): G35 - Multiple sclerosis Status: Chronic Assessment and Plan: -----Continue Flexeril, Symmetrel, Ditropan, and Tecfidera. No exacerbation noted on exam. DS: Summary Hospital Course Reason for hospitalization: Shortness of breath after bronch Hospital Course: Patient is a 44-year-old female who was getting an outpatient bronch and did well until she started having some shortness of breath and pulmonary edema after the procedure. The patient was a direct admit from the procedure and started on IV Lasix. An echocardiogram was done which is detailed below but showed systolic function at 35% with severe mitral regurgitation. This is thought to be part of the etiology of her dyspnea on exertion and shortness of breath lately. She also was found to have bronchiolitis interstitial lung disease and needs to quit smoking altogether. Patient did well with diuretic therapy as her lower extremity edema improved and her shortness of breath had improved as well. She saw Cardiology while she was here who started her on the medications shown below. She is going to follow-up with them for further outpatient testing and likely cardiac catheterization and valve replacement. She is also to follow-up with pulmonology about her lung disease. The day of discharge the patient felt great and had no complaints. Her dyspnea on exertion had improved. Patient was educated about the worrisome signs and symptoms come back to emergency room for and was discharged in stable condition Echo: 1. Left ventricular wall thickness and mass index are normal with no regional wall motion abnormalities with moderate global hypokinesis, with an estimated ejection fraction of 35% calculated, 40% by visual assessment. Diastolic dysfunction grade 2 is present. 2. Right ventricular chamber dimension i
--- NOTE | 2020-01-09 14:59 | PM.PNPUL ---
Progress Note: A&P Assessment and Plan (1) ILD (interstitial lung disease): Code(s): J84.9 - Interstitial pulmonary disease, unspecified Status: Acute Assessment and Plan: - Pulmonary Langer[place]ans Histocytosis is less likely given BAL findings but LIP is still possible - She is clinically improving since quiting smoking many weeks ago - HIV test ordered - Echo shows decreased EF and moderate MR, and she needs to be referred for treatment, but this may depend on how stbale she is as far as ILD. I think she may need an open lung biopsy. - Will f/u as outpatient in a few weeks. - should go home on Symbicort 160/4.5 mcg 2 puffs bid and Spiriva Handihaler, one inhalation a day. - albuterol inhaler refilled at her pharmacy, she is close to being out. - nitrofurantoin stopped. This drug can cause lung problems. Subjective Date/time seen: 01/09/20 14:59 Interval history: THis 44 yo female is feeling better, no memory of the bronchoscopy. She developed some post op pulmonary edema and was diuresed, feels better today, and will plan to see the box spring maker after discharge. She is stable on Symbicort and Spiriva at home, needs a refill on Proventil. No complaints of dyspnea, cough, orthpnea or PND. The BAL cell count does not suggest Pulmonary Langerhands Histocytosis but Lymphocytic Interstitial Pneumonia is still possible. The patient would like to go home and f/u with us as an outpatient regarding pending results. Review of Systems Review of Systems: All systems reviewed & are unremarkable except as noted in HPI and below Exam Const: General: comfortable and no acute distress HENMT: Mouth: Yes moist mucous membranes Neck: Neck: supple and no JVD Resp: Auscultation: diminished lung sounds Cardio: Rate: regular rate Rhythm: regular rhythm Heart sounds: no gallops and no murmurs GI: Auscultation: normal bowel sounds Skin: General skin exam: normal color Neuro: Speech: normal speech Extrem: General: normal to inspection Psych: Mental Status: mental status grossly normal Objective Data Vital Signs Vital Signs: Vital Signs - 24 hr 01/08/20 16:00 01/08/20 20:00 01/08/20 20:26 Temperature Pulse Rate 117 H 88 88 Respiratory Rate Blood Pressure Pulse Oximetry 01/08/20 22:06 01/09/20 00:00 01/09/20 04:00 Temperature 36.1 C L Pulse Rate 86 86 78 Respiratory Rate 18 Blood Pressure 153/92 H Pulse Oximetry 92 01/09/20 06:00 01/09/20 08:00 01/09/20 10:01 Temperature 36.6 C Pulse Rate 85 73 68 Respiratory Rate 20 Blood Pressure 160/88 H Pulse Oximetry 98 01/09/20 12:00 Temperature Pulse Rate 81 Respiratory Rate Blood Pressure Pulse Oximetry Intake/Output Intake/Output: Intake & Output 01/06/20 01/07/20 01/08/20 01/09/20 23:59 23:59 23:59 23:59 Intake Total 0 2390 340 Output Total 1225 400 Balance 0 1165 -60 Meds/Results Medications: Active Medications Generic Name Dose Route Start Last Admin Trade Name Freq PRN Reason Stop Dose Admin Acetaminophen 650 mg 01/07/20 19:50 01/08/20 20:27 Tylenol Tablet PO 650 mg Q4H PRN Administration Mild Pain (1-3) or Fever Amantadine HCl 100 mg 01/07/20 17:00 01/09/20 10:01 Symmetrel PO 100 mg BID ESTHER Administration Aspirin 325 mg 01/07/20 17:00 01/09/20 10:01 Aspirin PO 325 mg BID ESTHER Administration Budesonide/Formoterol Fumarate 2 puff 01/08/20 08:00 01/09/20 07:15 Symbicort 160-4.5 Mcg (*Sp) Inhaler INHALATION 2 puff Q12HRT ESTHER Administration Carvedilol 3.125 mg 01/08/20 21:00 01/09/20 10:01 Coreg PO 3.125 mg Q12HR ESTHER Administration Cyclobenzaprine HCl 10 mg 01/07/20 21:00 01/09/20 10:01 Flexeril PO 10 mg Q12HR ESTHER Administration Furosemide 20 mg 01/08/20 09:00 01/09/20 10:03 Lasix Inj IV PUSH 20 mg DAILY ESTHER Administration Lisinopril 10 mg 01/09/20 09:00 01/09/20 10:03 Prinivil PO
--- NOTE | 2020-01-09 15:56 | PM.PNCARD ---
Progress Note: A&P Assessment and Plan (1) Acute systolic (congestive) heart failure: Code(s): I50.21 - Acute systolic (congestive) heart failure Status: Acute Assessment and Plan: Acute systolic heart failure and new cardiomyopathy, EF 40%. She also has moderately severe to severe mitral regurgitation (although her murmur is not impressive at all). The mitral valve itself looks very diseased, thickened, and calcified with a degree of mitral stenosis suggestive of rheumatic mitral valve disease, but she has no history of this as a child. Continue Lasix, lisinopril, spironolactone and carvedilol. Follow-up is been provided with Dr. Liz. Dr. Liz prefers to wait and see what the pulmonary diagnosis is, to see if we are dealing with pulmonic disease as well as cardiac disease, or this is all a manifestation of CHF. Ultimately likely will need a heart catheterization and mitral valve replacement if her pulmonic condition gives her a reasonable prognosis and permits. (2) Mitral regurgitation: Qualifiers: Cardiac valve disease etiology: etiology unspecified Qualified Code(s): I34.0 - Nonrheumatic mitral (valve) insufficiency Code(s): I34.0 - Nonrheumatic mitral (valve) insufficiency Status: Acute Assessment and Plan: Moderately severe to severe (3) Cardiomyopathy: Qualifiers: Cardiomyopathy type: unspecified Qualified Code(s): I42.9 - Cardiomyopathy, unspecified Code(s): I42.9 - Cardiomyopathy, unspecified Status: Acute Assessment and Plan: Moderate global hypokinesis, EF 40% (4) Hypersensitivity pneumonitis: Code(s): J67.9 - Hypersensitivity pneumonitis due to unspecified organic dust Status: Acute Assessment and Plan: Biopsies and cultures done 01/07/2020 Further recommendations her pulmonology (5) Multiple sclerosis: Code(s): G35 - Multiple sclerosis Status: Chronic Assessment and Plan: Followed by in [place] (6) COPD (chronic obstructive pulmonary disease): Qualifiers: COPD type: unspecified COPD Qualified Code(s): J44.9 - Chronic obstructive pulmonary disease, unspecified Code(s): J44.9 - Chronic obstructive pulmonary disease, unspecified Status: Chronic Assessment and Plan: Mild COPD, quit smoking recently (7) Sleep apnea: Qualifiers: Sleep apnea type: unspecified type Qualified Code(s): G47.30 - Sleep apnea, unspecified Code(s): G47.30 - Sleep apnea, unspecified Status: Acute Assessment and Plan: Apnea link done 01/09/2020 suggests pathological breathing disorder. Will need formal sleep study. Additional Plan OK to discharge from cardiac standpoint Plan discussed Dr. Liz 1645 01/09/2020 Time Spent With Patient Time with patient: less than 15 minutes Subjective Date/time seen: 01/09/20 15:56 Interval history: Follow-up for: Acute systolic heart failure, newly diagnosed cardiomyopathy, moderate to severe mitral regurgitation, COPD, probable sleep apnea Date of service: 01/09/2020 Subjective: Wants to go home. Muscular chest discomfort, shortness of breath with exertional activity, no lightheadedness or dizziness. Lower extremity edema has resolved completely. Review of Systems Constitutional: Constitutional: Reports body ache(s), Reports fatigue and Reports lethargy ENT: Denies epistaxis Cardiovascular: Cardiovascular: Reports chest pain (Musculoskeletal), Reports leg edema (Resolved), Denies palpitations and Reports dyspnea on exertion Respiratory: Respiratory: Denies chest congestion, Reports cough, Reports dyspnea on exertion and Denies wheezing Gastrointestinal: Gastrointestinal: Denies abdominal mk
[2020-01-10 04:32] LABS: Alpha-1-Antitrypsin, QN 158 mg/dL (83-199)
--- NOTE | 2020-02-04 14:48 | PC.NURSE ---
BAL fungal cx is negative.
--- NOTE | 2020-02-26 11:00 | PC.NURSE ---
No AFB noted to culture.
== END 2020-01-09 18:09 | disposition home or self-care (01) ==
LOC: ANH3MEDSUR 18:02
PROVIDERS: Internal Medicine Critical Care Medicine; Nurse Practitioner; Physician Assistant; Admitting Provider Internal Medicine; PCP Physician Assistant Medical; Visit Provider Internal Medicine
PROC: 0BJ08ZZ Inspection of Tracheobronchial Tree, Via Natural or Artificial Opening Endoscopic (ICD-10-PCS; CPT 31622; principal; 2020-01-07 12:00)
DX: J84.115 Respiratory bronchiolitis interstitial lung disease (principal); J84.9 Interstitial pulmonary disease, unspecified; J81.1 Chronic pulmonary edema; J44.9 Chronic obstructive pulmonary disease, unspecified; I50.21 Acute systolic (congestive) heart failure; I34.0 Nonrheumatic mitral (valve) insufficiency; I51.7 Cardiomegaly; I42.9 Cardiomyopathy, unspecified; E66.9 Obesity, unspecified; F41.8 Other specified anxiety disorders; G47.30 Sleep apnea, unspecified; G35 Multiple sclerosis; Z68.36 Body mass index [BMI] 36.0-36.9, adult; Z87.891 Personal history of nicotine dependence; R22.43 Localized swelling, mass and lump, lower limb, bilateral
CPT/HCPCS: 31629; 36415; 71045; 76000; 80048; 80053; 82103; 83735; 83880; 84439; 84443; 84480; 85025; 85999; 86140; 86703; 87015; 87102; 87116; 87206; 88104; 88108; 88184; 88305; 88312; 88313; 93005; 93970; 94640; 96374; 96375; A9270; C8929; G0378; G0379; G0432; J0330; J1100; J1940; J2250; J2405; J2704; J3010; J7120; Q9957

== ENCOUNTER 2020-01-15 12:55 | Outpatient (CLI) | payer OTHER, SELFPAY ==
[2020-01-15 13:34] LABS: Blood Urea Nitrogen 16 mg/dL (7-17); Carbon Dioxide 26 mmol/L (22-30); Chloride 102 mmol/L (98-107); Estimated Glomerular Filt Rate > 60; Glucose 96 mg/dL (65-105); Potassium 4.6 mmol/L (3.4-5.0); Sodium 135 mmol/L (137-145)
== END 2020-01-15 12:56 | disposition home or self-care (01) ==
PROVIDERS: Visit Provider Physician Assistant
DX: I50.21 Acute systolic (congestive) heart failure (principal)
CPT/HCPCS: 36415; 80048

== ENCOUNTER 2020-02-02 01:02 | Outpatient (CLI) | payer OTHER, SELFPAY ==
[2020-02-02 18:31] LABS: SARS-CoV-2 RNA PCR Negative
== END 2020-02-02 01:03 | disposition home or self-care (01) ==
LOC: ANHCOVIDDT 01:03
PROVIDERS: Visit Provider Internal Medicine Cardiovascular Disease
DX: Z01.812 Encounter for preprocedural laboratory examination (principal); Z11.59 Encounter for screening for other viral diseases
CPT/HCPCS: 87635; C9803; U0003

== ENCOUNTER 2020-02-05 05:28 | Day surgery (SDC) | payer OTHER, SELFPAY ==
[2020-02-05] VITALS (9 sets, daily range): BP systolic 100–141; BP diastolic 61–105; PULSE 75–95; RESP 14–22; TEMP 36.6; O2SAT 95–100
--- NOTE | 2020-02-05 11:33 | WPDMODSED ---
Moderate Sedation Note-Pt Data Patient Data Diagnosis: Mitral regurgitation, mitral stenosis Present Complaint: Mitral regurgitation Procedure to be performed/Plan: 1. Multiplanar transesophageal echocardiography with color-flow pulse-wave Doppler 2. Agitated saline study 3. Moderate sedation Allergies Allergy/AdvReac Type Severity Reaction Status Date / Time codeine Allergy Mild facial Verified 12/31/19 15:18 swelling latex Allergy Mild Rash Verified 12/31/19 15:18 cocoa butter Allergy Swelling Verified 12/31/19 15:18 coconut Allergy Swelling Verified 12/31/19 15:18 of Lip/Tongue/Throat Home Medications Medication Instructions Recorded Confirmed Type cyclobenzaprine 10 mg PO BID 12/01/19 12/31/19 History Spiriva with HandiHaler 1 cap INHALATION DAILY@0800 #30 12/02/19 12/31/19 Rx inhalation budesonide-formoterol [Symbicort] 2 puff INHALATION Q8HRT #10.2 gm 12/02/19 12/31/19 Rx amantadine HCl 100 mg capsule 100 mg PO BID 12/27/19 12/31/19 History dimethyl fumarate 120 mg 120 mg PO BID 12/27/19 12/31/19 History capsule,delayed release oxybutynin chloride 5 mg tablet 5 mg PO BID 12/27/19 12/31/19 History paroxetine HCl 10 mg tablet 10 mg PO DAILY 12/27/19 12/31/19 History aspirin 325 mg PO BID 12/31/19 01/07/20 History albuterol sulfate [Proventil HFA] 1 inhalation INHALATION QID PRN 30 01/09/20 Rx Days #8.5 gm carvedilol [Coreg] 3.125 mg PO Q12HR #60 tablet 01/09/20 Rx furosemide [Lasix] 20 mg PO DAILY #30 tablet 01/09/20 Rx lisinopril 10 mg PO DAILY #30 tablet 01/09/20 Rx spironolactone 25 mg PO QAM #30 tablet 01/09/20 Rx Sedation/Anesthesia: No previous sedation/anesthesia problems (including family history). [facility] Past Medical History Medical History Asthma COPD (chronic obstructive pulmonary disease) Depression with anxiety Multiple sclerosis Vaginal mass vaginal wall lesion that was nonmalignant by bx 11/2004 Surgical History Surgical History H/O section with one miscarriage; x3 H/O hernia repair left 01/2004 H/O: hysterectomy TATA 06/2004 History of cholecystectomy Hx of knee surgery left Hx of shoulder surgery 08/2005 Family History Family History Mother Diabetes mellitus CHF (congestive heart failure) Hypertension Kidney failure Son Seizure in Social History Social History Social History: 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 Smokes 1ppd x 33 yrs ( she started at age 11yo). No history of IV drug use. Lives at home with her son and daughter and boyfriend. Her other child has moved out. She denies alcohol use. She wishes to make herself a full code. She nominates her friend Bev to be the individual would make medical decisions for her if she is not able. Patient has applied for disability. The patient used to work for [employer]. Patient recently quit smoking. Smoking packs per day: 1 Smoking cigarettes per day: 20.0 Smoking status: Former smoker Tobacco type: cigarettes Second hand tobacco smoke exposure: Yes Smoking end date: 12/15/19 Additional smoking assessment comments: only 1 cigarette in the last month Alcohol intake: never Substance use: never Substance use type: does not use Gender identity (if verbalized by the patient): Female Spiritual care concerns: No Mod Sed Physical Exam Physical Exam Pre Procedural Exam: Normal: Appearance, Eyes, Ears, Nose, Neck, Lungs, Heart Size, Heart Rate, Heart Rhythm, Extremities and Skin and Variation: Throat (Large tonsils noted) Hours since solid foods: 12 Hours since liquid intake: 12 Internal Medicine - PN: Obj Da Vital Signs Vital Signs: Vital Signs - 24 hr 02/05/20 10:44 Temperature 36.
--- NOTE | 2020-02-05 12:02 | P.PCNTEE_ITS ---
DOMENIC TransEsophageal Echocardiogram Date of procedure: 02/05/20 Procedure Type: Multiplanar transesophageal echocardiography with color flow, pulse wave Doppler Moderate sedation Diagnosis: Mitral regurgitation Indications: Mitral regurgitation Image Quality: Good Findings: Procedure: Multiplanar transesophageal echocardiography was performed. After discussing the risks benefits and alternatives of procedure the patient agreeable via verbal and written informed consent. Risks discussed included esophageal rupture perforation, need for emergent surgery, bleeding, pain, infection, adverse reaction to anesthesia, . After informed consent was signed and after establishing continuous monitoring analyst, pulse oxygenation and serial blood pressure assessments time-out was taken and the procedure was initiated. Procedure start time 1136 a.m. Procedure stop time 11:52 a.m. Complications: None Blood loss: None Medications administered: Hurricaine spray to hypopharynx x2, viscous lidocaine 10 cc gargle and swallow, a total of 5 mg of Versed and 75 mcg of fentanyl given in divided divided dosages Medications were administered and patient was monitored by Jacqueline Baumann RN Findings: Patient was agitated at times throughout the procedure. Left ventricular size is normal with mild LV dysfunction. EF grossly estimated around 45%. Mitral valve is mildly thickened and has an appearance of a rheumatic valve. It is not completely close. There is moderate to severe mitral regurgitation via color flow and moderate to severe mitral stenosis with mean gradient of 10 mm Hg. Aortic valve is normal in appearance and is trileaflet with trivial aortic insufficiency. Aortic root is normal. There is no pericardial effusion. Left atrial appendage is without mass or thrombus with pulse-wave velocities the 50 centimeters/second. Left atrial enlargement is seen which is moderate. Atrial septum is grossly intact. Normal right ventricular size and function. Normal right atrial size. Tricuspid valve is normal without significant tricuspid regurgitation. The pulmonic valve is also grossly normal without significant pulmonic insufficiency. Conclusions: 1. Mild LV dysfunction with EF around 45% 2. Rheumatic appearance of her mitral valve. Moderate to severe mitral regurgitation and moderate to severe mitral stenosis 3. Normal aortic valve 4. Left atrial enlargement 5. Moderate sedation
--- NOTE | 2020-02-05 12:13 | SUR.PHASEII ---
1155-pt into Phase II recovery. No distress noted. AOx4. Remains quite drowsy. Will continue to monitor.
== END 2020-02-05 14:00 | disposition home or self-care (01) ==
PROVIDERS: PCP Physician Assistant; Visit Provider Internal Medicine Cardiovascular Disease
PROC: (CPT 93312; principal; 2020-02-05 11:30)
DX: I34.0 Nonrheumatic mitral (valve) insufficiency (principal); I34.2 Nonrheumatic mitral (valve) stenosis; J44.9 Chronic obstructive pulmonary disease, unspecified; F41.8 Other specified anxiety disorders; Z79.82 Long term (current) use of aspirin; F17.210 Nicotine dependence, cigarettes, uncomplicated
CPT/HCPCS: 93312; 93320; 93325; J2250; J3010; J7040

== ENCOUNTER 2020-02-28 13:08 | Outpatient (CLI) | payer OTHER, SELFPAY ==
[2020-02-28 13:46] LABS: Anion Gap 7 mmol/L (8-16); Blood Urea Nitrogen 21 mg/dL (7-17); Calcium 9.4 mg/dL (8.4-10.2); Carbon Dioxide 26 mmol/L (22-30); Chloride 101 mmol/L (98-107); Estimated Glomerular Filt Rate > 60; Glucose 119 mg/dL (65-105); Potassium 4.2 mmol/L (3.4-5.0); Sodium 134 mmol/L (137-145)
== END 2020-02-28 13:09 | disposition home or self-care (01) ==
LOC: ANHLAB 13:10
PROVIDERS: PCP Physician Assistant; Visit Provider Internal Medicine Cardiovascular Disease
DX: I50.22 Chronic systolic (congestive) heart failure (principal); Z79.899 Other long term (current) drug therapy
CPT/HCPCS: 36415; 80048

== ENCOUNTER 2020-03-08 00:07 | Outpatient (CLI) | payer OTHER, SELFPAY ==
[2020-03-08 19:29] LABS: SARS-CoV-2 RNA PCR Negative
== END 2020-03-08 00:08 | disposition home or self-care (01) ==
LOC: ANHCOVIDDT 00:08
PROVIDERS: PCP Physician Assistant; Visit Provider Internal Medicine Cardiovascular Disease
DX: Z01.812 Encounter for preprocedural laboratory examination (principal); Z20.828 Contact with and (suspected) exposure to other viral communicable diseases
CPT/HCPCS: 87635; C9803; U0003

== ENCOUNTER 2020-03-10 15:06 | Outpatient (CLI) | payer OTHER, SELFPAY ==
--- NOTE | ~2020-03-10 | CT_ITS ---
EXAMINATION: CT chest w con DATE: 03/10/2020 15:35 INDICATION: Interstitial lung disease. Respiratory bronchiolitis. There is improved mediastinal and r ight hilar lymph nodes TECHNIQUE: Computed tomography (CT) of the chest was performed with 75 cc Omnipaque 350 intravenous c ontrast. The dose-length product was 943.02 mGy-cm. Automated exposure control and iterative reconstr uction technique were employed. COMPARISON: CT dated 01/05/2020 FINDINGS: Significant improvement of groundglass opacities compared with prior examination. No endobr onchial lesions. Mild emphysema. Mild right paratracheal lymphadenopathy, likely reactive. Right para tracheal lymph node measures 1.5 cm, image 46. No significant pleural or pericardial effusion. There are improved mediastinal/hilar lymphadenopathy compared with prior examination. The upper abdomen is unremarkable. Mild thoracic spondylosis. Small hiatal hernia. IMPRESSION: 1. Significant improvement of bilateral groundglass opacification in both lungs, likely resolving pne umonia and/or respiratory bronchiolitis. 2: Improving mediastinal and bilateral hilar lymphadenopathy, likely reactive. Reviewed, dictated and finalized at location A. IMPRESSION: 1. Significant improvement of bilateral groundglass opacification in both lungs , likely resolving pneumonia and/or respiratory bronchiolitis. 2: Improving mediastinal and bilateral hilar lymphadenopathy, likely reactive.
[2020-03-10 15:28] LABS: Estimated Glomerular Filt Rate 54
== END 2020-03-10 15:07 | disposition home or self-care (01) ==
PROVIDERS: PCP Physician Assistant; Visit Provider Internal Medicine Critical Care Medicine
DX: J84.115 Respiratory bronchiolitis interstitial lung disease (principal); R59.0 Localized enlarged lymph nodes
CPT/HCPCS: 71260; Q9967

== ENCOUNTER 2020-03-11 00:20 | Day surgery (SDC) | payer OTHER, SELFPAY ==
[2020-03-10 15:37] VITALS: BMI 35.4
[2020-03-11] VITALS (9 sets, daily range): BP systolic 102–111; BP diastolic 56–70; PULSE 72–88; RESP 12–16; TEMP 36.6–36.7; O2SAT 94–100
[2020-03-11 08:08] LABS: Basophils Percent Auto 0.5 % (0.2-1.2); Eosinophils Absolute Auto 0.3 K/mm3 (0-0.3); Eosinophils Percent Auto 3.3 % (0-4.4); Hematocrit 36.1 % (37.0-47.0); Hemoglobin 11.5 g/dL (12.0-15.0); Immature Granulocyte Absolute 0.03 K/mm3 (0.00-0.031); Immature Granulocyte Percent A 0.4 % (0-0.5); Lymphocytes Absolute Auto 1.18 K/mm3 (0.9-3.2); Lymphocytes Percent Auto 15.4 % (18.3-44.2); Mean Corpuscular HGB Conc 31.9 g/dl (32-36); Mean Corpuscular Hemoglobin 24.9 pg (26-34); Mean Corpuscular Volume 78.3 fl (80-100); Mean Platelet Volume 10.3 fl (7.4-10.4); Monocytes Absolute Auto 0.6 K/mm3 (0.1-0.6); Monocytes Percent Auto 7.4 % (2.6-8.5); Neutrophils Absolute Auto 5.6 K/mm3 (1.3-6.7); Platelet Count Result 227 k/mm3 (150-375); Red Blood Count 4.61 M/mm3 (4.2-5.4); Red Cell Distribution Width 17.9 % (11.5-14.5); White Blood Count 7.7 K/mm3 (4.5-10.0)
[2020-03-11 08:17] LABS: Prothrombin Time 12.9 Seconds (11.1-14.7)
[2020-03-11 08:21] LABS: Anion Gap 5 mmol/L (8-16); Blood Urea Nitrogen 15 mg/dL (7-17); Calcium 8.6 mg/dL (8.4-10.2); Carbon Dioxide 28 mmol/L (22-30); Chloride 103 mmol/L (98-107); Estimated CRCL calculation 94 ml/min; Estimated Glomerular Filt Rate > 60; Glucose 96 mg/dL (65-105); Potassium 4.4 mmol/L (3.4-5.0); Sodium 136 mmol/L (137-145)
--- NOTE | 2020-03-11 08:51 | PM.IMHP ---
H&P: HPI History of Present Illness Date/Time: 03/11/20 08:51 Chief complaint: Mitral Regurgitation Narrative: Tatiana Elder is a 44 year old female With new onset CHF and found to have moderately severe to severe mitral regurgitation December 2019. She has an ejection fraction of 40%. She has also been having a lot of chest pain and takes nitroglycerin daily. She is here for right and left heart catheterization anticipating she will need Mitral valve replacement. Review of Systems Constitutional: Constitutional: Reports fatigue ENT: Denies epistaxis Cardiovascular: Cardiovascular: Reports chest pain, Reports pedal edema and Denies palpitations Respiratory: Respiratory: Reports dyspnea on exertion Gastrointestinal: Gastrointestinal: Denies abdominal pain Genitourinary: Genitourinary: Denies hematuria Musculoskeletal: Musculoskeletal: Reports no additional musculoskeletal complaints Neurologic: Denies confusion Psychiatric: Psychiatric: Reports as per HPI ( Has a lot of trouble with anxiety) [facility] Past Medical History Medical History (Updated 03/11/20 @ 08:53 by Noemi Liz MD) Asthma COPD (chronic obstructive pulmonary disease) Depression with anxiety Mitral stenosis with regurgitation Multiple sclerosis Pulmonary hypertension Vaginal mass vaginal wall lesion that was nonmalignant by bx 11/2004 Surgical History Surgical History H/O section with one miscarriage; x3 H/O hernia repair left 01/2004 H/O: hysterectomy TATA 06/2004 History of cholecystectomy Hx of knee surgery left Hx of shoulder surgery 08/2005 Social History Social History (Updated 03/11/20 @ 08:54 by Noemi Liz MD) Social History: 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 Smokes 1ppd x 33 yrs ( she started at age 11yo). No history of IV drug use. Lives at home with her son and daughter and boyfriend. Her other child has moved out. She denies alcohol use. She wishes to make herself a full code. She nominates her friend Bev to be the individual would make medical decisions for her if she is not able. Patient has applied for disability. The patient used to work for [employer]. Patient recently quit smoking. Daughter is Genoveva. Smoking packs per day: 0.5 Smoking cigarettes per day: 10.0 Years smoked: 30 Smoking pack-years: 15.00 Smoking status: Current every day smoker Tobacco type: cigarettes Second hand tobacco smoke exposure: Yes Smoking end date: 12/15/19 Additional smoking assessment comments: only 1 cigarette in the last month Alcohol intake: never Substance use: never Substance use type: does not use Living arrangements: with family Gender identity (if verbalized by the patient): Female Spiritual care concerns: No Meds Home Medications and Allergies Home Medications Medication Instructions Recorded Confirmed Type cyclobenzaprine 10 mg PO BID 12/01/19 03/10/20 History Spiriva with HandiHaler 1 cap INHALATION DAILY@0800 #30 12/02/19 03/10/20 Rx inhalation budesonide-formoterol [Symbicort] 2 puff INHALATION Q8HRT #10.2 gm 12/02/19 03/10/20 Rx amantadine HCl 100 mg capsule 100 mg PO BID 12/27/19 03/10/20 History dimethyl fumarate 120 mg 240 mg PO BID 12/27/19 03/10/20 History capsule,delayed release oxybutynin chloride 5 mg tablet 5 mg PO BID 12/27/19 03/10/20 History paroxetine HCl 10 mg tablet 10 mg PO DAILY 12/27/19 03/10/20 History aspirin 325 mg PO BID 12/31/19 03/10/20 History albuterol sulfate [Proventil HFA] 1 inhalation INHALATION QID PRN 30 01/09/20 03/10/20 Rx Days #8.5 gm carvedilol [Coreg] 3.125 mg PO Q12HR #60 tablet 01/09/20 03/10/20 Rx furosemide [Lasix] 20 mg PO DAILY #30 tablet 01/09/20 03/10/20 Rx lisinopril 10 mg PO DAILY #30 tablet 01/09/20 03/10/20 Rx spironolactone 25 mg PO QAM #30 tablet 01/09/20 03/10/20 Rx Allergies Allergy/AdvReac Typ
--- NOTE | 2020-03-11 08:59 | WPDMODSED ---
Moderate Sedation Note-Pt Data Patient Data Diagnosis: Mitral stenosis/ regurgitation which appears rheumatic CHF chest pain cardiomyopathy Present Complaint: chest pain and shortness of breath Procedure to be performed/Plan: conscious sedation right and left heart catheterization Allergies Allergy/AdvReac Type Severity Reaction Status Date / Time codeine Allergy Mild facial Verified 12/31/19 15:18 swelling latex Allergy Mild Rash Verified 12/31/19 15:18 cocoa butter Allergy Swelling Verified 12/31/19 15:18 coconut Allergy Swelling Verified 12/31/19 15:18 of Lip/Tongue/Throat Home Medications Medication Instructions Recorded Confirmed Type cyclobenzaprine 10 mg PO BID 12/01/19 03/10/20 History Spiriva with HandiHaler 1 cap INHALATION DAILY@0800 #30 12/02/19 03/10/20 Rx inhalation budesonide-formoterol [Symbicort] 2 puff INHALATION Q8HRT #10.2 gm 12/02/19 03/10/20 Rx amantadine HCl 100 mg capsule 100 mg PO BID 12/27/19 03/10/20 History dimethyl fumarate 120 mg 240 mg PO BID 12/27/19 03/10/20 History capsule,delayed release oxybutynin chloride 5 mg tablet 5 mg PO BID 12/27/19 03/10/20 History paroxetine HCl 10 mg tablet 10 mg PO DAILY 12/27/19 03/10/20 History aspirin 325 mg PO BID 12/31/19 03/10/20 History albuterol sulfate [Proventil HFA] 1 inhalation INHALATION QID PRN 30 01/09/20 03/10/20 Rx Days #8.5 gm carvedilol [Coreg] 3.125 mg PO Q12HR #60 tablet 01/09/20 03/10/20 Rx furosemide [Lasix] 20 mg PO DAILY #30 tablet 01/09/20 03/10/20 Rx lisinopril 10 mg PO DAILY #30 tablet 01/09/20 03/10/20 Rx spironolactone 25 mg PO QAM #30 tablet 01/09/20 03/10/20 Rx Current Medications: Active Medications Sodium Chloride (Normal Saline Iv) 500 mls @ 100 mls/hr IV CONT .Q5H ESTHER Sedation/Anesthesia: No previous sedation/anesthesia problems (including family history). FOR[facility]LY [facility], [facility] Past Medical History Medical History (Updated 03/11/20 @ 08:53 by Noemi iLz MD) Asthma COPD (chronic obstructive pulmonary disease) Depression with anxiety Mitral stenosis with regurgitation Multiple sclerosis Pulmonary hypertension Vaginal mass vaginal wall lesion that was nonmalignant by bx 11/2004 Surgical History Surgical History H/O section with one miscarriage; x3 H/O hernia repair left 01/2004 H/O: hysterectomy TATA 06/2004 History of cholecystectomy Hx of knee surgery left Hx of shoulder surgery 08/2005 Social History Social History (Updated 03/11/20 @ 08:54 by Noemi Liz MD) Social History: 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 Smokes 1ppd x 33 yrs ( she started at age 11yo). No history of IV drug use. Lives at home with her son and daughter and boyfriend. Her other child has moved out. She denies alcohol use. She wishes to make herself a full code. She nominates her friend Bev to be the individual would make medical decisions for her if she is not able. Patient has applied for disability. The patient used to work for [employer]. Patient recently quit smoking. Daughter is Genoveva. Smoking packs per day: 0.5 Smoking cigarettes per day: 10.0 Years smoked: 30 Smoking pack-years: 15.00 Smoking status: Current every day smoker Tobacco type: cigarettes Second hand tobacco smoke exposure: Yes Smoking end date: 12/15/19 Additional smoking assessment comments: only 1 cigarette in the last month Alcohol intake: never Substance use: never Substance use type: does not use Living arrangements: with family Gender identity (if verbalized by the patient): Female Spiritual care concerns: No Mod Sed Physical Exam Physical Exam Pre Procedural Exam: Normal: Appearance, Eyes, Ears, Nose, Neck, Throat, Airway, Lungs, Heart Size, Heart Rate, Heart Rhythm, Neuro Exam, Abdomen, Extremities ( intact femoral and dorsalis pedis pulses) and Skin Hours since solid foods
--- NOTE | 2020-03-11 10:16 | PM.OP ---
Procedure Note - Brief Procedure Note - Brief Date of procedure: 03/11/20 Pre-op diagnosis: Mitral Regurgitation Mitral stenosis /regurgitation cardiomyopathy chest pain Post-op diagnosis: same Procedure performed: conscious sedation left heart catheterization Description of procedure: left heart catheterization performed, unable to obtain venous access for right heart catheterization Anesthesia: local ( with conscious sedation) Surgeon: Noemi Liz MD Estimated blood loss (mL): 5 Drains: No Packing: No Pathology: none sent Complications: No immediate complications Condition: stable Disposition: observation Findings: Normal coronary arteries Cardiomyopathy, EF estimated 30-40% 3 to 4+ mitral regurgitation New onset atrial flutter then atrial fibrillation during procedure.
--- NOTE | 2020-03-11 11:51 | PM.PROC ---
Procedure Note - Detailed Date of procedure: 03/11/20 Pre-op diagnosis: Mitral Regurgitation Description of procedure: Procedure: 1. Conscious sedation 2. Left heart catheterization 3. Selective Coronary angiography 4. Left ventriculography 5. Attempted right heart catheterization, abandonned, unable to locate the right femoral vein. Site: Right femoral artery Catheters: 5 Trinidadian arterial sheath, 5 Trinidadian 4 cm right and left Jaki catheters, 5 Trinidadian pigtail catheter Conscious sedation: The patient has no known prior history of adverse affects of conscious sedation. Oropharynx was clear. The patient is deemed a good candidate for conscious sedation. Conscious sedation began at: 09:22 a.m. Conscious sedation ended at: 10:05 a.m. Total conscious sedation time: 43 minutes Medications: Versed 25 mcg IV push The patient had continuous hemodynamic monitoring, and was also continuously monitored by: Mary Bello RN The patient tolerated conscious sedation well. Detailed procedure: After informed consent the patient brought to the matlab developer and the right femoral area was prepped and draped in the usual fashion. She was fairly somnolent because of the Ativan she had taken prior to admission and required minimal conscious sedation. After conscious sedation and local anesthesia the right femoral artery was punctured and cannulated with the arterial sheath. After multiple attempts of is not able to of locating cannulate the right femoral vein. Attempted to cannulate the left femoral vein, anD used vascular ultrasound, with poor visualization and again no success. Despite the patient's somnolence, she appeared uncomfortable so I abandoned my attempts to perform a right heart catheterization. Selective Coronary angiography was performed with the coronary catheters in multiple projections. These were withdrawn. her blood pressure was occasionally in the upper 80s and responded to 200 cc of normal saline bolus x2. The pigtail catheter was advanced into the central circulation and left ventricle for pressure measurements and left ventriculography which was performed in the VIGIL projection. The patient developed atrial flutter during cannulation of the left ventricle, which converted to an atrial fibrillation. The catheter was withdrawn after left ventriculography. angiography of the right common femoral was performed and the sheath was in suitable position for an Angio-Seal vascular closure device. The arterial sheath was removed and hemostasis was obtained using local pressure. The patient tolerated the procedure well with no complications. Estimated blood loss was negligible. She converted spontaneously to sinus rhythm prior to [facility]. Surgeon: Noemi Liz MD Findings: Pressures: LV pressure 120 / 26 mmHg and aortic pressure 120/ 80 mmHg. Left coronary artery: The left main, Left anterior descending and circumflex vessels are widely patent and free of disease. Right coronary artery: The dominant right coronary artery is free of disease. Left ventriculography: Left ventriculography was compromised by frequent ventricular ectopy and also the atrial fibrillation. Overall there appeared to be moderate left ventricular dysfunction with 3 to 4+ mitral regurgitation. Conclusions: Normal coronary arteries Moderate left ventricular dysfunction 3 to 4+ mitral regurgitation Mildly elevated left ventricular end-diastolic pressure Transient atrial fibrillation during the procedure, spontaneously converted to NSR. Recommendations: Patient reports intermittent palpitations lasting for 30 minutes at home and I am concerned, with her mitral valve disease, that she is having paroxysmal atrial fibrillation. I recommend starting anticoagulation with warfarin 5 mg daily on 03/14/2020 for presumed PAF. Started omeprazole for chest pain and esophageal symptom
== END 2020-03-11 14:00 | disposition home or self-care (01) ==
PROVIDERS: PCP Physician Assistant; Visit Provider Internal Medicine Cardiovascular Disease
PROC: 4A023N7 Measurement of Cardiac Sampling and Pressure, Left Heart, Percutaneous Approach (ICD-10-PCS; CPT 93452; principal; 2020-03-11 08:30)
DX: I34.0 Nonrheumatic mitral (valve) insufficiency (principal); I50.9 Heart failure, unspecified; R00.2 Palpitations; R07.9 Chest pain, unspecified; I42.9 Cardiomyopathy, unspecified; J44.9 Chronic obstructive pulmonary disease, unspecified; F17.210 Nicotine dependence, cigarettes, uncomplicated; F41.8 Other specified anxiety disorders; G35 Multiple sclerosis
CPT/HCPCS: 36415; 80048; 85025; 85610; 93458; C1887; C1894; J1644; J2250; J3010; J7040

== ENCOUNTER 2020-03-16 22:55 | Emergency (ER) | payer OTHER, SELFPAY ==
[2020-03-16 22:58] VITALS: BP 143/63; PULSE 93; RESP 18; TEMP 35.9; O2SAT 100
--- NOTE | 2020-03-16 23:13 | ED.SKABFB ---
HPI - Skin/Abscess/Foreign Bdy General Chief complaint: Skin/Abscess/Foreign Body Stated complaint: infected cath site Time Seen by Provider: 03/16/20 23:02 Source: patient Mode of arrival: ambulatory Limitations: no limitations History of Present Illness HPI narrative: This patient is a 44 year old Cacuasian female who presents for evaluatin of right catheterization site infection. She had a cardiac catheterization on Tuesday. She has been doing well until yesterday. She developed burning sensation to right lower groin yesterday and tonight she noticed purulent and bloody drainage. She denies fever , nausea and vomiting. Related Data Home Medications Medication Instructions Recorded Confirmed cyclobenzaprine 10 mg PO BID 12/01/19 03/10/20 amantadine HCl 100 mg capsule 100 mg PO BID 12/27/19 03/10/20 dimethyl fumarate 120 mg 240 mg PO BID 12/27/19 03/10/20 capsule,delayed release oxybutynin chloride 5 mg tablet 5 mg PO BID 12/27/19 03/10/20 paroxetine HCl 10 mg tablet 10 mg PO DAILY 12/27/19 03/10/20 Allergies Allergy/AdvReac Type Severity Reaction Status Date / Time codeine Allergy Mild facial Verified 03/16/20 22:56 swelling latex Allergy Mild Rash Verified 03/16/20 22:56 cocoa butter Allergy Swelling Verified 03/16/20 22:56 coconut Allergy Swelling Verified 03/16/20 22:56 of Lip/Tongue/Throat Review of Systems Review of Systems: All systems reviewed & are unremarkable except as noted in HPI and below PMFSH Past Medical History Medical History Asthma COPD (chronic obstructive pulmonary disease) Depression with anxiety Mitral stenosis with regurgitation Multiple sclerosis Pulmonary hypertension Vaginal mass vaginal wall lesion that was nonmalignant by bx 11/2004 Surgical History Surgical History H/O section with one miscarriage; x3 H/O hernia repair left 01/2004 H/O: hysterectomy TATA 06/2004 History of cholecystectomy Hx of knee surgery left Hx of shoulder surgery 08/2005 Social History Social History (Updated 03/11/20 @ 08:54 by Noemi Liz MD) Social History: 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 Smokes 1ppd x 33 yrs ( she started at age 11yo). No history of IV drug use. Lives at home with her son and daughter and boyfriend. Her other child has moved out. She denies alcohol use. She wishes to make herself a full code. She nominates her friend Bev to be the individual would make medical decisions for her if she is not able. Patient has applied for disability. The patient used to work for [employer]. Patient recently quit smoking. Daughter is Genoveva. Smoking packs per day: 0.5 Smoking cigarettes per day: 10.0 Years smoked: 30 Smoking pack-years: 15.00 Smoking status: Current every day smoker Tobacco type: cigarettes Second hand tobacco smoke exposure: Yes Smoking end date: 12/15/19 Additional smoking assessment comments: only 1 cigarette in the last month Alcohol intake: never Substance use: never Substance use type: does not use Gender identity (if verbalized by the patient): Female Spiritual care concerns: No Exam Narrative: Exam Narrative: GENERAL: Well-appearing, well-nourished, and in no acute distress. HEAD: Normocephalic, atraumatic EYES: PERRLA and EOMI, conjunctiva clear without discharge THROAT:Mucous membranes moist, NECK: Supple, without lymphadenopathy or mass RESPIRATORY: No respiratory distress, Airway patent, Respirations non-labored, Clear to auscultation without rales, rhonchi or wheeze HEART: Regular rate and rhythm. No murmur heard. Normal peripheral pulses. ABDOMEN: Soft, nontender, nondistended, normal active bowel sounds. No masses. No rebound or guarding, No organomegaly. EXTREMITIES: No edema, normal strength with full range of motion. NEURO:
[2020-03-16 23:24] LABS: Basophils Absolute Auto 0.1 K/mm3 (0.0-0.1); Basophils Percent Auto 0.5 % (0.2-1.2); Eosinophils Absolute Auto 0.3 K/mm3 (0-0.3); Eosinophils Percent Auto 3.3 % (0-4.4); Hematocrit 38.8 % (37.0-47.0); Hemoglobin 12.6 g/dL (12.0-15.0); Immature Granulocyte Absolute 0.03 K/mm3 (0.00-0.031); Immature Granulocyte Percent A 0.3 % (0-0.5); Lymphocytes Absolute Auto 1.41 K/mm3 (0.9-3.2); Lymphocytes Percent Auto 14.5 % (18.3-44.2); Mean Corpuscular HGB Conc 32.5 g/dl (32-36); Mean Corpuscular Hemoglobin 25.5 pg (26-34); Mean Corpuscular Volume 78.5 fl (80-100); Mean Platelet Volume 10.5 fl (7.4-10.4); Monocytes Absolute Auto 0.6 K/mm3 (0.1-0.6); Monocytes Percent Auto 5.9 % (2.6-8.5); Neutrophils Absolute Auto 7.3 K/mm3 (1.3-6.7); Neutrophils Percent Auto 75.5 % (45.5-73.1); Platelet Count Result 274 k/mm3 (150-375); Red Blood Count 4.94 M/mm3 (4.2-5.4); Red Cell Distribution Width 17.6 % (11.5-14.5); White Blood Count 9.7 K/mm3 (4.5-10.0)
[2020-03-16 23:40] LABS: Alanine Aminotransferase 15 U/L (4-35); Albumin Level 4.3 g/dL (3.5-5.1); Alkaline Phosphatase 59 U/L (38-126); Anion Gap 7 mmol/L (8-16); Aspartate Amino Transferase 16 U/L (14-36); Bilirubin,Total 0.1 mg/dL (0.2-1.3); Blood Urea Nitrogen 12 mg/dL (7-17); Calcium 9.2 mg/dL (8.4-10.2); Carbon Dioxide 26 mmol/L (22-30); Chloride 104 mmol/L (98-107); Estimated CRCL calculation 86 ml/min; Estimated Glomerular Filt Rate > 60; Glucose 132 mg/dL (65-105); Potassium 3.9 mmol/L (3.4-5.0); Sodium 137 mmol/L (137-145)
[2020-03-17] MEDS: CEPHALEXIN 500 MG CAPSULE PO (00:56)
[2020-03-17 01:25] LABS: INR 1.2; Prothrombin Time 14.6 Seconds (11.1-14.7)
[2020-03-17 01:26] LABS: Partial Thromboplastin Time 31.4 SECONDS (22.3-36.8)
[2020-03-17 02:07] VITALS: BP 142/86; PULSE 88; RESP 16; TEMP 36.9; O2SAT 97
== END 2020-03-17 02:07 | disposition home or self-care (01) ==
PROVIDERS: Emergency Provider General Practice; PCP Physician Assistant
DX: T82.7XXA Infection and inflammatory reaction due to other cardiac and vascular devices, implants and grafts, initial encounter (principal); L02.214 Cutaneous abscess of groin; J44.9 Chronic obstructive pulmonary disease, unspecified; G35 Multiple sclerosis; I27.20 Pulmonary hypertension, unspecified; I05.2 Rheumatic mitral stenosis with insufficiency
CPT/HCPCS: 36415; 80053; 85025; 85610; 85730; 99283; A9270

== ENCOUNTER 2020-03-20 08:39 | Outpatient (CLI) | payer OTHER, SELFPAY ==
--- NOTE | 2020-03-25 22:56 | WPDPFTINT ---
PFT Interpretation PFT Interpretation: DOS: 03/20/2020 REQUESTING: Dr Shea REASON FOR TESTING: cysts and interstitial changes on HRCT chest PULMONARY FUNCTION TESTS Results are reproducible. Spirometry: FEV1 is 51%, moderately decreased. FVC 62%, mildly decreased. FEV1% is decreased. There is a significant increase in FEV1 with bronchodilator, 23% which is greater than 200 ml. Lung volumes: TLC 82%, normal. RV/TLC is increased consistent with air trapping. Increased airway resistance. Diffusion: DLCO moderately decreased 42%. Flow volume loop: mild scooping of the expiratory limb. IMPRESSION: Moderate obstructive ventilatory impairment with a good response to bronchodilator, air trapping, increased airway resistance and moderate diffusion impairment. Leigha Shea MD
== END 2020-03-20 08:40 | disposition home or self-care (01) ==
PROVIDERS: PCP Physician Assistant; Visit Provider Internal Medicine Critical Care Medicine
DX: J44.9 Chronic obstructive pulmonary disease, unspecified (principal); R94.2 Abnormal results of pulmonary function studies
CPT/HCPCS: 36415; 85610; 94060; 94726; 94729

== ENCOUNTER 2020-03-24 01:34 | Outpatient (CLI) | payer OTHER, SELFPAY ==
[2020-03-24 16:32] LABS: SARS-CoV-2 RNA PCR Negative
== END 2020-03-24 01:35 | disposition home or self-care (01) ==
LOC: ANHCOVIDDT 01:35
PROVIDERS: PCP Physician Assistant; Visit Provider Internal Medicine Critical Care Medicine
DX: R09.89 Other specified symptoms and signs involving the circulatory and respiratory systems (principal); Z20.828 Contact with and (suspected) exposure to other viral communicable diseases
CPT/HCPCS: 87635; C9803; U0003

== ENCOUNTER 2020-03-26 08:02 | Outpatient (CLI) | payer OTHER, SELFPAY ==
--- NOTE | 2020-04-01 04:15 | SLEEP_ITS ---
BASIC NOCTURNAL POLYSOMNOGRAM DATE OF STUDY: 03/26/2020 ORDERING PHYSICIAN: Leigha Shea MD. REASON FOR THIS STUDY: Obstructive sleep apnea syndrome. HISTORY: This patient is a 44-year-old female, 70 inches tall, weighing 245 pounds with a body mass index of 35.2. She has a history of witnessed apnea during a transesophageal echo. She snores at night, wakes up feeling tired in the morning, consumed 60 ounces of caffeine a day. Her legs bother her before sleep and during sleep. There is a family history of sleep apnea with her mother, having sleep apnea. She has had this for several years. She constantly awakens from sleep feeling short of breath, constantly has heartburn and belching at night. She constantly snores loud enough that others complain about it. She constantly has trouble sleeping with a cold, constantly gasps for breath at night and has breathing problems reported to her by others. She constantly sweats excessively at night and notices her heart pounding or beating irregularly at night on occasion. She constantly falls asleep during the day frequently involuntarily, constantly while driving. She does not fall asleep during physical effort or with strong emotion. She does not have loss of muscle tone with strong emotion. She does not have daytime difficulties due to excessive sleepiness. She constantly feels paralyzed on waking or falling asleep and constantly has vivid dreamlike scenes upon awakening or falling asleep. She is never afraid to go to sleep. She constantly has nightmares, remembers her dreams and has racing thoughts. She does not feel sad or depressed. She constantly has anxiety, muscular tension, and notices parts of her body jerking. She constantly kicks at night and has crawly achy feelings in her legs. She constantly has leg pain at night and morning jaw pain. She has problems grinding her teeth very often at night as well as pain during the day, awakens with pain at night, wakes up feeling stiff in the morning with sore achy muscles and frequently wakes up with pain in her neck and spine. She has fatigue, depression, and headaches. Normal bedtime is 10 p.m., but may not fall asleep until 3 a.m. She wakes up 3 times at night to go to the bathroom. She wakes in the morning at 10 a.m. She estimates 4 hours of sleep at night. She is drowsy in the morning for 3 hours or longer. She does take naps, but these are not always refreshing. She feels better in the afternoon than in the morning. MEDICAL COMORBIDITIES: Multiple sclerosis, depression with anxiety, mitral stenosis with mitral regurgitation, pulmonary hypertension. MEDICATIONS: Cyclobenzaprine 10 mg b.i.d., Spiriva HandiHaler 1 capsule daily, Symbicort 160/4.5 two puffs b.i.d., amantadine 100 mg b.i.d., oxybutynin chloride 5 mg b.i.d., paroxetine 10 mg daily, aspirin 325 mg b.i.d., albuterol sulfate 1 inhalation q.i.d. p.r.n. shortness of breath, carvedilol 3.125 mg p.o. b.i.d., furosemide 20 mg a day, lisinopril 10 mg a day. Spironolactone 25 mg a day. HABITS: Tobacco, 5 cigarettes a day. No mention of caffeine or alcohol. DESCRIPTION OF THE STUDY: On the [place] Sleepiness Scale, the score is 11. This was conducted as a full night nocturnal polysomnogram using the AdRoll multiple channel system including EOG, EEG, submental EMG, EKG, nasal and oral airflow using thermistors and nasal pressure sensors, chest and abdominal belts, body position data, and pulse oximetry. This study was scored using [facility] guidelines. Duration of the study was 454.8 minutes. Sleep time was 350.5 minutes. Sleep efficiency was 77.1%. Sleep latency was prolonged at 49.5 minutes. REM latency was extremely prolonged 251.5 minutes. Sleep architecture showed 13.5% wakefulness after sleep onset, 7.8% stag
== END 2020-03-26 08:03 | disposition home or self-care (01) ==
LOC: ANHCSM 08:03
PROVIDERS: PCP Physician Assistant; Visit Provider Internal Medicine Critical Care Medicine
DX: G47.33 Obstructive sleep apnea (adult) (pediatric) (principal)
CPT/HCPCS: 95810

== ENCOUNTER 2020-06-01 20:21 | Emergency (ER) | payer OTHER, SELFPAY ==
--- NOTE | ~2020-06-01 | XR_ITS ---
EXAMINATION: XR chest 1V portable DATE: 06/01/2020 23:06 INDICATION: Chronic obstructive pulmonary disease. Swollen feet. TECHNIQUE: A single frontal view of the chest was obtained. COMPARISON: Chest single view 01/08/2020, chest CT 03/06/2020 FINDINGS: Sensitivity is decreased by obesity. There is mild atelectasis in right midlung zone. No pl eural effusion or pneumothorax. The heart size is normal. There are changes of heart valve replacemen t. There is a closure device at left atrial appendage. IMPRESSION: 1. Mild atelectasis in right midlung zone. Reviewed, dictated and finalized at location A. 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
[2020-06-01 20:23] VITALS: BP 154/90; PULSE 106; RESP 20; TEMP 36.1; O2SAT 99
--- NOTE | 2020-06-01 20:42 | ECG_ITS ---
Measurements Intervals Ray Rate: 100 P: 91 WV: 141 QRS: 67 QRSD: 85 T: 75 QT: 347 QTc: 448 Interpretive Statements SINUS TACHYCARDIA NONSPECIFIC ST & T-WAVE ABNORMALITY- INF/LAT LEADS BASELINE ARTIFACT- III, V4-V6 BORDERLINE ECG Electronically Signed On 06-02-2020 8:21:34 FINAL CIGAR [employer]OX EXAMINER by Jonah Gómez D.O.
[2020-06-01 21:03] LABS: Basophils Absolute Auto 0.1 K/mm3 (0.0-0.1); Basophils Percent Auto 0.5 % (0.2-1.2); Eosinophils Absolute Auto 0.3 K/mm3 (0-0.3); Eosinophils Percent Auto 2.2 % (0-4.4); Hematocrit 29.8 % (37.0-47.0); Hemoglobin 9.2 g/dL (12.0-15.0); Immature Granulocyte Absolute 0.09 K/mm3 (0.00-0.031); Immature Granulocyte Percent A 0.6 % (0-0.5); Lymphocytes Absolute Auto 1.38 K/mm3 (0.9-3.2); Mean Corpuscular HGB Conc 30.9 g/dl (32-36); Mean Corpuscular Hemoglobin 23.8 pg (26-34); Mean Corpuscular Volume 77.2 fl (80-100); Mean Platelet Volume 8.9 fl (7.4-10.4); Monocytes Absolute Auto 0.8 K/mm3 (0.1-0.6); Neutrophils Absolute Auto 11.2 K/mm3 (1.3-6.7); Neutrophils Percent Auto 80.7 % (45.5-73.1); Platelet Count Result 390 k/mm3 (150-375); Red Blood Count 3.86 M/mm3 (4.2-5.4); Red Cell Distribution Width 16.5 % (11.5-14.5); White Blood Count 13.9 K/mm3 (4.5-10.0)
[2020-06-01 21:11] LABS: INR 1.3; Prothrombin Time 16.3 Seconds (11.1-14.7)
[2020-06-01 21:12] LABS: Partial Thromboplastin Time 34.3 SECONDS (22.3-36.8)
[2020-06-01 21:26] LABS: Alanine Aminotransferase 20 U/L (4-35); Alkaline Phosphatase 83 U/L (38-126); Anion Gap 9 mmol/L (8-16); Aspartate Amino Transferase 24 U/L (14-36); Bilirubin,Total 0.6 mg/dL (0.2-1.3); Blood Urea Nitrogen 12 mg/dL (7-17); Calcium 9.1 mg/dL (8.4-10.2); Carbon Dioxide 28 mmol/L (22-30); Chloride 103 mmol/L (98-107); Estimated CRCL calculation 92 ml/min; Estimated Glomerular Filt Rate > 60; Glucose 126 mg/dL (65-105); Potassium 3.5 mmol/L (3.4-5.0); Sodium 140 mmol/L (137-145)
[2020-06-01 21:37] LABS: NT Pro B Type Natriuretic Pept 847 PG/ML (5-100); Troponin I 0.022 ng/mL (0.000-0.034)
--- NOTE | 2020-06-01 23:16 | ED.LOWEXIN ---
HPI - Extremity Injury (Lower) General Chief Complaint: Chest Pain Stated Complaint: feet swelling Time Seen by Provider: 06/01/20 22:43 History of Present Illness HPI Narrative: Pain and swelling in the bilateral lower extremities. This is a chronic problem, but she noticed that it was worse today. Not painful at rest, very painful with walking. She is usually n lasix, she is currently out and her insurance would not cover a refill at this time. She also has mild MURRELL. She had valve replacement surgery at [facility] last month. Related Data Home Medications Medication Instructions Recorded Confirmed cyclobenzaprine 10 mg PO BID 12/01/19 03/10/20 amantadine HCl 100 mg capsule 100 mg PO BID 12/27/19 03/10/20 dimethyl fumarate 120 mg 240 mg PO BID 12/27/19 03/10/20 capsule,delayed release oxybutynin chloride 5 mg tablet 5 mg PO BID 12/27/19 03/10/20 paroxetine HCl 10 mg tablet 10 mg PO DAILY 12/27/19 03/10/20 warfarin 4 mg PO DAILY 06/01/20 Allergies Allergy/AdvReac Type Severity Reaction Status Date / Time codeine Allergy Mild facial Verified 06/01/20 20:31 swelling latex Allergy Mild Rash Verified 06/01/20 20:31 cocoa butter Allergy Swelling Verified 06/01/20 20:31 coconut Allergy Swelling Verified 06/01/20 20:31 of Lip/Tongue/Throat Review of Systems Review of Systems: All systems reviewed & are unremarkable except as noted in HPI and below Constitutional: Constitutional: Denies chills and Denies fever(s) Cardiovascular: Cardiovascular: Denies chest pain Respiratory: Respiratory: Reports dyspnea Gastrointestinal: Gastrointestinal: Denies abdominal pain, Denies nausea and Denies vomiting Genitourinary: Genitourinary: Denies dysuria Neurologic: Denies numbness and Denies weakness [facility] Past Medical History Medical History (Updated 06/01/20 @ 23:39 by Brock Delvalle MD) Asthma COPD (chronic obstructive pulmonary disease) Depression with anxiety Mitral stenosis with regurgitation Multiple sclerosis Pulmonary hypertension Vaginal mass vaginal wall lesion that was nonmalignant by bx 11/2004 Surgical History Surgical History H/O section with one miscarriage; x3 H/O hernia repair left 01/2004 H/O: hysterectomy TATA 06/2004 History of cholecystectomy Hx of knee surgery left Hx of shoulder surgery 08/2005 Family History Family History Mother Diabetes mellitus CHF (congestive heart failure) Hypertension Kidney failure Son Seizure in Social History Social History Social History: 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 Smokes 1ppd x 33 yrs ( she started at age 11yo). No history of IV drug use. Lives at home with her son and daughter and boyfriend. Her other child has moved out. She denies alcohol use. She wishes to make herself a full code. She nominates her friend Bev to be the individual would make medical decisions for her if she is not able. Patient has applied for disability. The patient used to work for [employer]. Patient recently quit smoking. Daughter is Genoveva. Smoking packs per day: 0.5 Smoking cigarettes per day: 10.0 Years smoked: 30 Smoking pack-years: 15.00 Smoking status: Current every day smoker Tobacco type: cigarettes Second hand tobacco smoke exposure: Yes Smoking end date: 12/15/19 Additional smoking assessment comments: only 1 cigarette in the last month Alcohol intake: never Substance use: never Substance use type: does not use Gender identity (if verbalized by the patient): Female Spiritual care concerns: No Exam Const: General: no acute distress and alert Orientation/consciousness: patient oriented x3 HENMT: Head: normal to inspection Resp: Effort & Inspection: normal
[2020-06-01 23:34] VITALS: BP 154/78; PULSE 97; RESP 20; O2SAT 99
[2020-06-01] MEDS: FUROSEMIDE INJ 40 MG/4 ML VIAL IV PUSH (23:43)
[2020-06-02 00:27] VITALS: BP 152/88; PULSE 99; RESP 20; O2SAT 97
== END 2020-06-02 00:26 | disposition home or self-care (01) ==
PROVIDERS: Emergency Provider Emergency Medicine; PCP Physician Assistant
DX: R60.0 Localized edema (principal); J44.9 Chronic obstructive pulmonary disease, unspecified; G35 Multiple sclerosis; F41.8 Other specified anxiety disorders; I05.2 Rheumatic mitral stenosis with insufficiency; I27.20 Pulmonary hypertension, unspecified; F17.210 Nicotine dependence, cigarettes, uncomplicated
CPT/HCPCS: 36415; 71045; 80053; 83880; 84484; 85025; 85610; 85730; 93005; 96374; 99284; J1940

== ENCOUNTER 2020-06-07 20:38 | Emergency (ER) | payer OTHER, SELFPAY ==
[2020-06-07] VITALS (11 sets, daily range): BP systolic 102–148; BP diastolic 64–95; PULSE 70–77; RESP 17–19; TEMP 36.4; O2SAT 95–99
[2020-06-07] MEDS: KETOROLAC 30 MG/ML VIAL (*BKC) IV PUSH (21:08)
[2020-06-07] MEDS: diphenhydrAMINE HCl INJ 50 MG/ML VIAL 25 MG IV PUSH (21:09)
[2020-06-07] MEDS: METOCLOPRAMIDE HCL INJ 10 MG/2 ML VIAL IV PUSH (21:09)
--- NOTE | 2020-06-07 21:18 | ED.HA ---
HPI - Headache General Chief Complaint: Headache Stated Complaint: headache Time Seen by Provider: 06/07/20 20:43 History of Present Illness HPI Narrative: Patient is a 45-year-old female who presents ER with frontal headache. Began yesterday and was dull and annoying is increasingly intensified. No relief with Tylenol. She endorses photophobia. No trauma. She has had no runny nose/sore throat/productive cough. No numbness or tingling to her extremities. Patient reports recent increase in Coumadin due to subtherapeutic levels. Related Data Home Medications Medication Instructions Recorded Confirmed cyclobenzaprine 10 mg PO BID 12/01/19 03/10/20 amantadine HCl 100 mg capsule 100 mg PO BID 12/27/19 03/10/20 dimethyl fumarate 120 mg 240 mg PO BID 12/27/19 03/10/20 capsule,delayed release oxybutynin chloride 5 mg tablet 5 mg PO BID 12/27/19 03/10/20 paroxetine HCl 10 mg tablet 10 mg PO DAILY 12/27/19 03/10/20 warfarin 7 mg PO DAILY 06/01/20 enoxaparin 06/07/20 Allergies Allergy/AdvReac Type Severity Reaction Status Date / Time codeine Allergy Mild facial Verified 06/07/20 20:46 swelling latex Allergy Mild Rash Verified 06/07/20 20:46 cocoa butter Allergy Swelling Verified 06/07/20 20:46 coconut Allergy Swelling Verified 06/07/20 20:46 of Lip/Tongue/Throat Review of Systems Review of Systems: All systems reviewed & are unremarkable except as noted in HPI and below Constitutional: Constitutional: Denies chills, Denies fever(s) and Denies weakness Eyes: Eyes: Denies change in vision and Reports photophobia ENT: Denies nasal congestion and Denies sore throat Neurologic: Reports headache(s), Denies focal weakness and Denies numbness PMFSH Past Medical History Medical History (Updated 06/07/20 @ 23:31 by Gavino Haddad MD) Asthma COPD (chronic obstructive pulmonary disease) Depression with anxiety Mitral stenosis with regurgitation Multiple sclerosis Pulmonary hypertension Vaginal mass vaginal wall lesion that was nonmalignant by bx 11/2004 Surgical History Surgical History H/O section with one miscarriage; x3 H/O hernia repair left 01/2004 H/O: hysterectomy TATA 06/2004 History of cholecystectomy Hx of knee surgery left Hx of shoulder surgery 08/2005 Family History Family History Mother Diabetes mellitus CHF (congestive heart failure) Hypertension Kidney failure Son Seizure in infant Social History Social History Social History: 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 Smokes 1ppd x 33 yrs ( she started at age 11yo). No history of IV drug use. Lives at home with her son and daughter and boyfriend. Her other child has moved out. She denies alcohol use. She wishes to make herself a full code. She nominates her friend Bev to be the individual would make medical decisions for her if she is not able. Patient has applied for disability. The patient used to work for [employer]. Patient recently quit smoking. Daughter is Genoveva. Smoking packs per day: 0.5 Smoking cigarettes per day: 10.0 Years smoked: 30 Smoking pack-years: 15.00 Smoking status: Current every day smoker Tobacco type: cigarettes Second hand tobacco smoke exposure: Yes Smoking end date: 12/15/19 Additional smoking assessment comments: only 1 cigarette in the last month Alcohol intake: never Substance use: never Substance use type: does not use Gender identity (if verbalized by the patient): Female Spiritual care concerns: No Exam Narrative: Exam Narrative: GENERAL: Well-appearing, well-nourished, and in no acute distress. HEAD: Normocephalic, atraumatic. EYES: PERRL and EOMI. CHEST: Clear to auscultation. No respiratory distress. HEART: Regul
[2020-06-07 21:58] LABS: INR 2.5; Prothrombin Time 27.3 Seconds (11.1-14.7)
== END 2020-06-07 23:56 | disposition home or self-care (01) ==
PROVIDERS: Emergency Provider Emergency Medicine; PCP Physician Assistant
DX: G43.909 Migraine, unspecified, not intractable, without status migrainosus (principal); J44.9 Chronic obstructive pulmonary disease, unspecified; I05.0 Rheumatic mitral stenosis; G35 Multiple sclerosis; I27.20 Pulmonary hypertension, unspecified; F41.8 Other specified anxiety disorders; Z87.891 Personal history of nicotine dependence; Z79.01 Long term (current) use of anticoagulants
CPT/HCPCS: 36415; 85610; 96374; 96375; 99284; J1200; J1885; J2765

== ENCOUNTER 2020-06-13 16:25 | Outpatient (RCR) | payer OTHER, SELFPAY ==
[2020-03-20 15:34] LABS: INR 1.6; Prothrombin Time 18.3 Seconds (11.1-14.7)
[2020-03-28 13:11] LABS: INR 2.1; Prothrombin Time 22.8 Seconds (11.1-14.7)
[2020-06-05 14:57] LABS: Hematocrit 30.6 % (37.0-47.0); Hemoglobin 9.4 g/dL (12.0-15.0); Mean Corpuscular HGB Conc 30.7 g/dl (32-36); Mean Corpuscular Hemoglobin 23.4 pg (26-34); Mean Corpuscular Volume 76.3 fl (80-100); Mean Platelet Volume 9.5 fl (7.4-10.4); Platelet Count Result 407 k/mm3 (150-375); Red Blood Count 4.01 M/mm3 (4.2-5.4); Red Cell Distribution Width 16.6 % (11.5-14.5)
[2020-06-05 15:00] LABS: INR 1.4; Prothrombin Time 17.7 Seconds (11.1-14.7)
[2020-06-05 15:02] LABS: Anion Gap 8 mmol/L (8-16); Blood Urea Nitrogen 9 mg/dL (7-17); Carbon Dioxide 29 mmol/L (22-30); Chloride 98 mmol/L (98-107); Estimated Glomerular Filt Rate > 60; Glucose 156 mg/dL (65-105); Magnesium 1.7 mg/dL (1.6-2.3); Potassium 3.2 mmol/L (3.4-5.0); Sodium 135 mmol/L (137-145)
[2020-06-13 17:32] LABS: INR 3.3; Prothrombin Time 34.3 Seconds (11.1-14.7)
== END 2020-06-18 23:59 | disposition home or self-care (01) ==
LOC: ANHLAB 16:25
PROVIDERS: PCP Physician Assistant; Visit Provider Internal Medicine Cardiovascular Disease
DX: Z51.81 Encounter for therapeutic drug level monitoring (principal); I48.91 Unspecified atrial fibrillation; Z79.01 Long term (current) use of anticoagulants
CPT/HCPCS: 36415; 80048; 83735; 85027; 85610

== ENCOUNTER 2020-06-26 19:04 | Inpatient (IN) | payer OTHER, SELFPAY ==
--- NOTE | 2020-06-26 18:40 | PC.NURSE ---
This patient, Tatiana Elder, was admitted to [facility]. Patient/family oriented to hospital policies and general routines including ID bracelet, bed and alarms, visiting hours, pain management, procedures, bathroom and other care routines, personal items, smoking policy, room service/diet, and visiting hours. Information on how to activate the Rapid Response Team has been discussed. Patient/Family are encouraged to report perceived risks to care and to ask questions if they do not understand what they are told or what they should do.
[2020-06-26 19:00] VITALS: BP 146/82; PULSE 76; PULSE 80; RESP 16; TEMP 36.6; O2SAT 100
--- NOTE | 2020-06-26 19:15 | PC.NURSE ---
1914- Call to Dr. Liz, direct admit is here and need for orders. Per MD she is in process of placing orders for patient.
[2020-06-26 19:35] VITALS: BMI 37.0
[2020-06-26 20:00] VITALS: PULSE 81
[2020-06-26 20:06] LABS: Basophils Absolute Auto 0.1 K/mm3 (0.0-0.1); Basophils Percent Auto 0.6 % (0.2-1.2); Eosinophils Absolute Auto 0.5 K/mm3 (0-0.3); Eosinophils Percent Auto 4.6 % (0-4.4); Hematocrit 31.3 % (37.0-47.0); Hemoglobin 9.3 g/dL (12.0-15.0); Immature Granulocyte Absolute 0.05 K/mm3 (0.00-0.031); Immature Granulocyte Percent A 0.5 % (0-0.5); Lymphocytes Absolute Auto 1.37 K/mm3 (0.9-3.2); Lymphocytes Percent Auto 13.1 % (18.3-44.2); Mean Corpuscular HGB Conc 29.7 g/dl (32-36); Mean Corpuscular Hemoglobin 21.5 pg (26-34); Mean Corpuscular Volume 72.5 fl (80-100); Mean Platelet Volume 9.8 fl (7.4-10.4); Monocytes Absolute Auto 0.9 K/mm3 (0.1-0.6); Monocytes Percent Auto 8.4 % (2.6-8.5); Neutrophils Absolute Auto 7.6 K/mm3 (1.3-6.7); Neutrophils Percent Auto 72.8 % (45.5-73.1); Nucleated Red Blood Cells Perc 0.2 % (0.0-0.2); Platelet Count Result 406 k/mm3 (150-375); Red Blood Count 4.32 M/mm3 (4.2-5.4); Red Cell Distribution Width 18.2 % (11.5-14.5); White Blood Count 10.5 K/mm3 (4.5-10.0)
[2020-06-26 20:15] VITALS: O2SAT 100
[2020-06-26 20:15] LABS: INR 1.8; Prothrombin Time 21.1 Seconds (11.1-14.7)
[2020-06-26 20:16] LABS: Partial Thromboplastin Time 39.4 SECONDS (22.3-36.8)
[2020-06-26 20:25] LABS: Platelet Estimate Increased (Adequate)
--- NOTE | 2020-06-26 20:25 | PC.NURSE ---
2024- This nurse attempted to start IV on patient with no success and Mary Weldon RN attempted to place IV as well with no success. Patient reports she has a history of being a hard IV stick and typically requiring placement via ultrasound. Call to nursing heating and blending supervisor to request assistance with IV start with orders for heparin drip. Per Eugenia Nursing heating and blending supervisor she will make calls to ED to see if RN trained with ultrasound is available or she will come to bedside to initiate IV.
[2020-06-26 20:26] LABS: Anisocytosis 2+ (NORMAL); Hypochromasia 2+ (NORMAL)
--- NOTE | 2020-06-26 21:45 | PC.NURSE ---
Call to pharmacy to request one time dose potassium powder be sent to floor for administration.
[2020-06-26 21:47] VITALS: PULSE 81
[2020-06-26] MEDS: carvediloL 6.25 MG TABLET PO (21:47)
[2020-06-26] MEDS: WARFARIN (*PBKC) 4 MG TABLET 8 MG PO (21:47)
[2020-06-26] MEDS: ACETAMINOPHEN 325 MG TABLET 650 MG PO (21:48)
[2020-06-26] MEDS: POTASSIUM CHLORIDE 20 MEQ PACKET (FOR LIQUID) 40 MEQ PO (21:52)
[2020-06-26 22:00] VITALS: PULSE 84
[2020-06-26] MEDS: HEPARIN SODIUM 5,000 UNITS/ML VIAL 7000 UNITS IV PUSH (22:29)
[2020-06-26] MEDS: HEPARIN SOD/D5W 100 UNITS/ML 25,000 UNITS/250 ML BAG 15 UNITS IV CONT (22:30)
[2020-06-26 23:27] VITALS: BP 144/78; PULSE 74; RESP 18; TEMP 36.8; O2SAT 98
[2020-06-27] VITALS (14 sets, daily range): BP systolic 129–155; BP diastolic 76–89; PULSE 68–78; RESP 14–18; TEMP 36.4–37.1; O2SAT 96–99
[2020-06-27 05:43] LABS: Basophils Absolute Auto 0.1 K/mm3 (0.0-0.1); Basophils Percent Auto 0.8 % (0.2-1.2); Eosinophils Absolute Auto 0.4 K/mm3 (0-0.3); Eosinophils Percent Auto 4.9 % (0-4.4); Hematocrit 27.5 % (37.0-47.0); Hemoglobin 8.2 g/dL (12.0-15.0); Immature Granulocyte Absolute 0.05 K/mm3 (0.00-0.031); Immature Granulocyte Percent A 0.6 % (0-0.5); Lymphocytes Absolute Auto 1.84 K/mm3 (0.9-3.2); Lymphocytes Percent Auto 21.1 % (18.3-44.2); Mean Corpuscular HGB Conc 29.8 g/dl (32-36); Mean Corpuscular Hemoglobin 21.1 pg (26-34); Mean Corpuscular Volume 70.7 fl (80-100); Mean Platelet Volume 9.9 fl (7.4-10.4); Monocytes Absolute Auto 0.7 K/mm3 (0.1-0.6); Monocytes Percent Auto 7.6 % (2.6-8.5); Neutrophils Absolute Auto 5.7 K/mm3 (1.3-6.7); Platelet Count Result 346 k/mm3 (150-375); Red Blood Count 3.89 M/mm3 (4.2-5.4); Red Cell Distribution Width 17.9 % (11.5-14.5); White Blood Count 8.7 K/mm3 (4.5-10.0)
[2020-06-27 05:50] LABS: Prothrombin Time 23.2 Seconds (11.1-14.7)
[2020-06-27 06:03] LABS: Potassium 3.2 mmol/L (3.4-5.0)
[2020-06-27 06:04] LABS: Partial Thromboplastin Time 174.4 SECONDS (22.3-36.8)
[2020-06-27 06:30] LABS: Hypochromasia 1+ (NORMAL); Ovalocytes 1+ (NORMAL); Platelet Estimate Adequate (Adequate)
[2020-06-27] MEDS: lisinopriL 10 MG TABLET PO (09:36)
--- NOTE | 2020-06-27 09:36 | PM.IMHP ---
H&P: HPI History of Present Illness Date/Time: 06/27/20 09:36 Chief complaint: Hypokalemia/Non theraputic/anticoagulation Narrative: Tatiana Elder is a 45 year old female with a history of mitral valve disease and atrial fibrillation admitted to the hospital from our office for intravenous heparin because of a subtherapeutic INR. The patient currently has no cardiovascular complaints of any kind. She is a patient the follows with my partner Dr. Liz. She was 1st found to have mitral valve disease in December of this year and she was found to have severe MR Av and was having symptoms of dyspnea and congestive heart failure. She also was found to have paroxysmal atrial fibrillation. Her preop evaluation of course included a cardiac catheterization which was done by Dr. riggins in February which did not demonstrate any coronary disease. She was taken to the operating room by Dr. Dubon at [facility] for mitral valve replacement and a Maze procedure in April of this year. She received a a mechanical mitral valve according to the chart that I am looking at and obviously after that was placed on Coumadin. She states there has been some variability in her INR and reports that she has been compliant with her medication. Her current dose of Coumadin is 5 mg daily with 4 mg on Tuesday and . INR on admission was 1.7 with a protime of 21 seconds. She has been placed on intravenous heparin and Dr. riggins has ordered Coumadin at 8 mg daily starting last evening. INR today is 2.0. Review of Systems Constitutional: Constitutional: Reports no additional constitutional complaints Eyes: Eyes: Reports no additional eye complaints ENT: Reports system reviewed and no additional complaints, except as documented Cardiovascular: Cardiovascular: Reports no additional cardiovascular complaints Comments: Patient does have some positional chest pain when she lies on her side in bed. Respiratory: Respiratory: Reports no additional respiratory complaints Gastrointestinal: Gastrointestinal: Reports no additional gastrointestinal complaints Musculoskeletal: Musculoskeletal: Reports no additional musculoskeletal complaints Integumentary/Breasts: Skin/Breast: Reports system reviewed and no additional complaints, except as docu Neurologic: Reports system reviewed and no additional complaints, except as documented [facility] Past Medical History Medical History (Updated 06/08/20 @ 00:00 by Background Daemon) Asthma COPD (chronic obstructive pulmonary disease) Depression with anxiety Mitral stenosis with regurgitation Multiple sclerosis Pulmonary hypertension Vaginal mass vaginal wall lesion that was nonmalignant by bx 11/2004 Surgical History Surgical History H/O section with one miscarriage; x3 H/O hernia repair left 01/2004 H/O: hysterectomy TATA 06/2004 History of cholecystectomy Hx of knee surgery left Hx of shoulder surgery 08/2005 Family History Family History Mother Diabetes mellitus CHF (congestive heart failure) Hypertension Kidney failure Son Seizure in Social History Social History Social History: 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 Smokes 1ppd x 33 yrs ( she started at age 11yo). No history of IV drug use. Lives at home with her son and daughter and boyfriend. Her other child has moved out. She denies alcohol use. She wishes to make herself a full code. She nominates her friend Bev to be the individual would make medical decisions for her if she is not able. Patient has applied for disability. The patient used to work for [employer]. Patient recently quit smoking. Daughter is Genoveva. Smoking packs per day: 2 Smoking cigarettes per day: 40.0 Years smoked: 35 Smok
[2020-06-27] MEDS: POTASSIUM CHLORIDE 20 MEQ TABLET.ER PO ×3 (09:37→17:16)
[2020-06-27] MEDS: carvediloL 6.25 MG TABLET PO ×2 (09:37→21:50)
[2020-06-27] MEDS: PANTOPRAZOLE SOD SESQUIHYDRATE 20 MG TAB PO (09:37)
[2020-06-27] MEDS: metOLazone 5 MG TABLET PO (09:37)
[2020-06-27] MEDS: FUROSEMIDE 80 MG TABLET PO ×2 (09:37→17:16)
[2020-06-27] MEDS: SPIRONOLACTONE 25 MG TABLET PO (09:37)
[2020-06-27 12:49] LABS: Partial Thromboplastin Time 94.6 SECONDS (22.3-36.8)
[2020-06-27] MEDS: WARFARIN (*PBKC) 4 MG TABLET 8 MG PO (17:17)
[2020-06-27] MEDS: ACETAMINOPHEN 325 MG TABLET 650 MG PO (17:20)
[2020-06-27] MEDS: HEPARIN SOD/D5W 100 UNITS/ML 25,000 UNITS/250 ML BAG 12 UNITS IV CONT (18:28)
[2020-06-28] VITALS (14 sets, daily range): BP systolic 81–130; BP diastolic 52–75; PULSE 68–83; RESP 16–23; TEMP 36.1–37.1; O2SAT 95–98
[2020-06-28] MEDS: ACETAMINOPHEN 325 MG TABLET 650 MG PO ×3 (00:34→19:04)
[2020-06-28 02:50] LABS: Partial Thromboplastin Time 101.7 SECONDS (22.3-36.8)
[2020-06-28 06:03] LABS: INR 1.9; Prothrombin Time 22.1 Seconds (11.1-14.7)
[2020-06-28] MEDS: lisinopriL 10 MG TABLET PO (08:46)
[2020-06-28] MEDS: FUROSEMIDE 80 MG TABLET PO ×2 (08:46→17:32)
[2020-06-28] MEDS: PANTOPRAZOLE SOD SESQUIHYDRATE 20 MG TAB PO (08:46)
[2020-06-28] MEDS: POTASSIUM CHLORIDE 20 MEQ TABLET.ER PO ×3 (08:46→17:32)
[2020-06-28] MEDS: SPIRONOLACTONE 25 MG TABLET PO (08:46)
[2020-06-28] MEDS: carvediloL 6.25 MG TABLET PO ×2 (08:46→21:19)
[2020-06-28] MEDS: metOLazone 5 MG TABLET PO (08:46)
[2020-06-28 08:59] LABS: Partial Thromboplastin Time 63.5 SECONDS (22.3-36.8)
[2020-06-28] MEDS: HEPARIN SODIUM 5,000 UNITS/ML VIAL 3500 UNITS IV PUSH (09:45)
--- NOTE | 2020-06-28 10:17 | PM.PNCARD ---
Progress Note: A&P Additional Plan 45-year-old white female with mechanical mitral valve replacement and may Maze procedure April of 2020 for treatment of severe MR and PA AFib. She is stable clinically. Admitted because of subtherapeutic INR. I will give her 10 mg today in hopes of achieving a therapeutic INR allowing for discharge tomorrow. Adair Rasmussen MD [facility] Subjective Date/time seen: Date of service: 06/28/20 10:17 Interval history: Follow-up visit in this 45-year-old woman with mitral valve disease status post mechanical mitral valve replacement April of 2020. Admitted to the hospital because of subtherapeutic INR for IV heparin. She offers no complaints today. INR did not really come up much with 8 mg dosage yesterday. Review of Systems Constitutional: Constitutional: Reports no additional constitutional complaints Exam Const: General: comfortable and no acute distress HENMT: Mouth: Yes moist mucous membranes Eyes: Sclera: sclerae normal Pupils: Equal, round and reactive pupils present Neck: Neck: supple and no JVD Thyroid: thyroid normal Resp: Effort & Inspection: normal respiratory effort Auscultation: clear to auscultation bilaterally Cardio: Other: Normal crisp mitral valve closure sound noted GI: GI Palp: Yes Soft to palpation Auscultation: normal bowel sounds Skin: General skin exam: normal color Neuro: Cognition (Neuro): normal cognition Extrem: General: normal to inspection Objective Data Vital Signs Vital Signs: Vital Signs - 24 hr 06/27/20 12:00 06/27/20 16:00 06/27/20 18:00 Temperature Pulse Rate 70 70 69 Respiratory Rate 18 18 Blood Pressure Pulse Oximetry 96 96 06/27/20 20:00 06/27/20 21:50 06/27/20 22:00 Temperature 36.4 C Pulse Rate 70 72 75 Respiratory Rate 16 Blood Pressure 129/76 Pulse Oximetry 99 06/28/20 00:00 06/28/20 02:00 06/28/20 04:00 Temperature 36.9 C 36.1 C L Pulse Rate 72 69 71 Respiratory Rate 23 H 20 Blood Pressure 130/75 117/61 Pulse Oximetry 95 96 06/28/20 06:00 06/28/20 08:00 06/28/20 08:46 Temperature Pulse Rate 68 73 73 Respiratory Rate 20 Blood Pressure Pulse Oximetry 96 Intake/Output Intake/Output: Intake & Output 12/09/20 12/10/20 12/11/20 12/12/20 23:59 23:59 23:59 23:59 Intake Total 2270 240 Balance 2270 240 Meds/Results Medications: Active Medications Generic Name Dose Route Start Last Admin Trade Name Freq PRN Reason Stop Dose Admin Acetaminophen 650 mg 06/26/20 19:04 06/28/20 08:46 Acetaminophen 325 Mg Tablet PO 650 mg Q4H PRN Administration Mild Pain (1-3) or Fever Carvedilol 6.25 mg 06/26/20 21:00 06/28/20 08:46 Carvedilol 6.25 Mg Tablet PO 6.25 mg Q12HR ESTHER Administration Furosemide 80 mg 06/27/20 09:00 06/28/20 08:46 Furosemide 80 Mg Tablet PO 80 mg BID ESTHER Administration Heparin Sodium (Porcine) 7,000 units 06/26/20 19:04 Heparin Sodium 5,000 Units/Ml Vial IV PUSH PRN PRN aPTT less than 55 seconds Heparin Sodium (Porcine) 3,500 units 06/26/20 19:04 06/28/20 09:45 Heparin Sodium 5,000 Units/Ml Vial IV PUSH 3,500 units PRN PRN Administration aPTT 55 - 70 seconds Heparin Sodium/Dextrose 25,000 units in 250 mls @ 14 mls/hr 06/26/20 19:15 06/28/20 09:46 Heparin Sodium/D5w 100 Units/Ml IV CONT 1,400 units/hr .[id number] ESTHER 14 mls/hr Titration Protocol 1,400 UNITS/HR Lisinopril 10 mg 06/27/20 09:00 06/28/20 08:46 Lisinopril 10 Mg Tablet PO 10 mg DAILY ESTHER Administration Metolazone 5 mg 06/27/20 09:00 06/28/20 08:46 Metolazone 5 Mg Tablet PO 5 mg QAM ESTHER Administration Pantoprazole Sodium 20 mg 06/27/20 09:00 06/28/20 08:46 Pantoprazole Sod Sesquihydrate 20 Mg Tab PO 20 mg QAM ESTHER Administration Potassium Chloride 20 meq 06/27/20 09:00 06/28/20 08:46 Potassium Chloride 20 Meq Tablet.Er PO 20 meq TID [facility] Ad
[2020-06-28] MEDS: WARFARIN (*PBKC) 2 MG TABLET PO (17:32)
[2020-06-28] MEDS: WARFARIN (*PBKC) 4 MG TABLET 8 MG PO (17:33)
[2020-06-28] MEDS: HEPARIN SOD/D5W 100 UNITS/ML 25,000 UNITS/250 ML BAG 12 UNITS IV CONT (19:00)
[2020-06-28 22:58] LABS: Partial Thromboplastin Time 185.9 SECONDS (22.3-36.8)
[2020-06-29] VITALS (15 sets, daily range): BP systolic 100–118; BP diastolic 59–72; PULSE 70–88; RESP 14–20; TEMP 36.1–36.6; O2SAT 96–100
[2020-06-29] MEDS: ACETAMINOPHEN 325 MG TABLET 650 MG PO ×3 (00:01→20:06)
[2020-06-29 06:00] LABS: INR 2.1; Prothrombin Time 23.7 Seconds (11.1-14.7)
[2020-06-29 06:01] LABS: Partial Thromboplastin Time 59.1 SECONDS (22.3-36.8); Potassium 3.9 mmol/L (3.4-5.0)
[2020-06-29] MEDS: HEPARIN SODIUM 5,000 UNITS/ML VIAL 3500 UNITS IV PUSH (06:08)
[2020-06-29] MEDS: lisinopriL 10 MG TABLET PO (07:58)
[2020-06-29] MEDS: POTASSIUM CHLORIDE 20 MEQ TABLET.ER PO ×3 (07:58→16:21)
[2020-06-29] MEDS: PANTOPRAZOLE SOD SESQUIHYDRATE 20 MG TAB PO (07:58)
[2020-06-29] MEDS: metOLazone 5 MG TABLET PO (07:58)
[2020-06-29] MEDS: FUROSEMIDE 80 MG TABLET PO ×2 (07:58→16:05)
[2020-06-29] MEDS: carvediloL 6.25 MG TABLET PO ×2 (07:58→20:42)
[2020-06-29] MEDS: SPIRONOLACTONE 25 MG TABLET PO (07:59)
--- NOTE | 2020-06-29 10:42 | PM.PNCARD ---
Progress Note: A&P Additional Plan 45-year-old white female with: Need for IV heparin until INR reaches therapeutic level on Coumadin given her recent mechanical mitral valve replacement. We will give another 10 mg of Coumadin today Adair Rasmussen MD [facility] Subjective Date/time seen: 06/29/20 10:42 Interval history: Follow-up visit in this 45-year-old female with: Recent my mechanical mitral valve replacement and Maze procedure for treatment of MR and paroxysmal atrial fibrillation. Admitted for heparin because of subtherapeutic INR. The patient reports that she has been compliant with her warfarin as an outpatient. Patient is very sleepy this morning she requests reordered her medicines for multiple sclerosis. INR despite 10 mg of Coumadin yesterday is up to 2.1. Would like to see INR of 2.5 before discharge Exam Const: General: comfortable and no acute distress HENMT: Mouth: Yes moist mucous membranes Eyes: Sclera: sclerae normal Pupils: Equal, round and reactive pupils present Neck: Neck: supple and no JVD Resp: Effort & Inspection: normal respiratory effort Auscultation: clear to auscultation bilaterally Cardio: Rate: regular rate Rhythm: regular rhythm Other: Normal mitral valve closure sound noted GI: GI Palp: Yes Soft to palpation Auscultation: normal bowel sounds Skin: General skin exam: normal color Neuro: Cognition (Neuro): normal cognition Extrem: General: normal to inspection Objective Data Vital Signs Vital Signs: Vital Signs - 24 hr 06/28/20 12:00 06/28/20 14:00 06/28/20 16:00 Temperature 36.2 C L 36.9 C Pulse Rate 78 78 78 Respiratory Rate 16 16 Blood Pressure 106/52 L 81/64 L Pulse Oximetry 98 98 06/28/20 18:00 06/28/20 20:15 06/28/20 21:19 Temperature 37.1 C Pulse Rate 78 80 76 Respiratory Rate 16 Blood Pressure 115/57 L Pulse Oximetry 96 06/28/20 22:00 06/29/20 00:00 06/29/20 00:01 Temperature 36.6 C 36.6 C Pulse Rate 83 80 Respiratory Rate 16 Blood Pressure 117/65 Pulse Oximetry 96 06/29/20 02:00 06/29/20 05:05 06/29/20 05:10 Temperature 36.6 C 36.1 C L Pulse Rate 81 75 Respiratory Rate 16 Blood Pressure 117/65 Pulse Oximetry 96 06/29/20 07:58 06/29/20 08:00 06/29/20 09:00 Temperature Pulse Rate 74 80 77 Respiratory Rate 14 Blood Pressure 118/68 Pulse Oximetry 100 Intake/Output Intake/Output: Intake & Output 06/26/20 06/27/20 06/28/20 06/29/20 23:59 23:59 23:59 23:59 Intake Total 2270 2760 250 Balance 2270 2760 250 Meds/Results Medications: Active Medications Generic Name Dose Route Start Last Admin Trade Name Freq PRN Reason Stop Dose Admin Acetaminophen 650 mg 06/26/20 19:04 06/29/20 05:10 Acetaminophen 325 Mg Tablet PO 650 mg Q4H PRN Administration Mild Pain (1-3) or Fever Carvedilol 6.25 mg 06/26/20 21:00 06/29/20 07:58 Carvedilol 6.25 Mg Tablet PO 6.25 mg Q12HR ESTHER Administration Furosemide 80 mg 06/27/20 09:00 06/29/20 07:58 Furosemide 80 Mg Tablet PO 80 mg BID ESTHER Administration Heparin Sodium (Porcine) 7,000 units 06/26/20 19:04 Heparin Sodium 5,000 Units/Ml Vial IV PUSH PRN PRN aPTT less than 55 seconds Heparin Sodium (Porcine) 3,500 units 06/26/20 19:04 06/29/20 06:08 Heparin Sodium 5,000 Units/Ml Vial IV PUSH 3,500 units PRN PRN Administration aPTT 55 - 70 seconds Heparin Sodium/Dextrose 25,000 units in 250 mls @ 11 mls/hr 06/26/20 19:15 06/29/20 06:09 Heparin Sodium/D5w 100 Units/Ml IV CONT 1,100 units/hr .[id number] ESTHER 11 mls/hr Titration Protocol 1,100 UNITS/HR Lisinopril 10 mg 06/27/20 09:00 06/29/20 07:58 Lisinopril 10 Mg Tablet PO 10 mg DAILY ESTHER Administration Metolazone 5 mg 06/27/20 09:00 06/29/20 07:58 Metolazone 5 Mg Tablet PO 5 mg QAM ESTHER Administration Pantoprazole Sodium 20 mg 06/27/20 09:00 06/29/20 07:58 Pantoprazole Sod Ses
[2020-06-29] MEDS: amantadine HCL 100 MG CAPSULE PO ×2 (11:39→20:42)
[2020-06-29 12:46] LABS: Partial Thromboplastin Time 177.7 SECONDS (22.3-36.8)
[2020-06-29] MEDS: WARFARIN (*PBKC) 2 MG TABLET PO (16:06)
[2020-06-29] MEDS: WARFARIN (*PBKC) 4 MG TABLET 8 MG PO (16:06)
--- NOTE | 2020-06-29 16:12 | PHAR ---
The patient's home med of Dimethyl Fumarate 240MG has been verified.
[2020-06-29] MEDS: OXYBUTYNIN CHLORIDE 5 MG TABLET PO (16:19)
[2020-06-29 18:21] LABS: Partial Thromboplastin Time 81.1 SECONDS (22.3-36.8)
[2020-06-29] MEDS: HEPARIN SOD/D5W 100 UNITS/ML 25,000 UNITS/250 ML BAG 8 UNITS IV CONT (21:56)
[2020-06-29] MEDS: BUDESONIDE/FORMOTEROL (*SP) 160-4.5 MCG 6 GM INH 2 PUFF INHALATION (22:35)
[2020-06-30] VITALS: BP 112/59; PULSE 75; PULSE 77; RESP 18; TEMP 36.2; O2SAT 96
[2020-06-30 00:57] LABS: Partial Thromboplastin Time 62.4 SECONDS (22.3-36.8)
[2020-06-30] MEDS: HEPARIN SODIUM 5,000 UNITS/ML VIAL 3500 UNITS IV PUSH (01:03)
[2020-06-30 04:05] VITALS: BP 125/90; PULSE 79; RESP 16; TEMP 36; O2SAT 98
[2020-06-30] MEDS: ACETAMINOPHEN 325 MG TABLET 650 MG PO (04:07)
[2020-06-30 07:45] LABS: INR 2.8; Prothrombin Time 29.9 Seconds (11.1-14.7)
[2020-06-30 07:54] LABS: Partial Thromboplastin Time 179.9 SECONDS (22.3-36.8)
[2020-06-30 08:00] VITALS: BP 106/59; PULSE 75; PULSE 77; RESP 18; TEMP 36.2; O2SAT 100
--- NOTE | 2020-06-30 09:40 | PC.NURSE ---
HEPARIN GTT DISCONTINUED AT THIS TIME ORDERED. OFF.
[2020-06-30 09:52] VITALS: PULSE 71
[2020-06-30] MEDS: carvediloL 6.25 MG TABLET PO (09:52)
[2020-06-30] MEDS: amantadine HCL 100 MG CAPSULE PO (09:52)
[2020-06-30] MEDS: FUROSEMIDE 80 MG TABLET PO (09:53)
[2020-06-30] MEDS: metOLazone 5 MG TABLET PO (09:54)
[2020-06-30] MEDS: OXYBUTYNIN CHLORIDE 5 MG TABLET PO (09:54)
[2020-06-30] MEDS: lisinopriL 10 MG TABLET PO (09:54)
[2020-06-30] MEDS: POTASSIUM CHLORIDE 20 MEQ TABLET.ER PO ×2 (09:55→12:55)
[2020-06-30] MEDS: PANTOPRAZOLE SOD SESQUIHYDRATE 20 MG TAB PO (09:55)
[2020-06-30] MEDS: SPIRONOLACTONE 25 MG TABLET PO (09:55)
[2020-06-30 10:00] VITALS: PULSE 78
[2020-06-30] MEDS: BUDESONIDE/FORMOTEROL (*SP) 160-4.5 MCG 6 GM INH 2 PUFF INHALATION (10:07)
[2020-06-30 11:26] LABS: Anion Gap 5 mmol/L (8-16); Blood Urea Nitrogen 23 mg/dL (7-17); Calcium 9.3 mg/dL (8.4-10.2); Carbon Dioxide 37 mmol/L (22-30); Chloride 85 mmol/L (98-107); Estimated CRCL calculation 47 ml/min; Estimated Glomerular Filt Rate 29; Glucose 123 mg/dL (65-105); Potassium 3.8 mmol/L (3.4-5.0); Sodium 127 mmol/L (137-145)
--- NOTE | 2020-06-30 11:40 | PC.NURSE ---
SHANTHI HARO MATERIALS MANAGEMENT MANAGER HERE TO SEE PT. CONDITION UPDATE GIVEN. AWARE OF LAB RESULTS. WILL MONITOR.
--- NOTE | 2020-06-30 11:53 | PM.DS ---
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 Admitted for intravenous heparin because of subtherapeutic INR. Status post mechanical mitral valve replacement and Maze procedure in April 2020. INR on admission 1.7 with a protime of 21 seconds. She has received intravenous have heparin until her INR is greater than 2.5. Protime on day of discharge 2.8. She reports that she is compliant with her medications. She states that she does watch for foods that are high in vitamin K and avoids them. Her warfarin dosing is 5 mg on Tuesday, Tuesday, Tuesday, Tuesday and Tuesday. 4 mg on Tuesday and . Will resume her home dose as she received 8 mg of warfarin on Tuesday and 10 mg on Tuesday and Tuesday. She is to check an INR on , July 03, 2020. Results to go to 's office. (2) H/O mitral valve replacement with mechanical valve: Code(s): Z95.2 - Presence of prosthetic heart valve Status: Acute Assessment and Plan: Follow-up as previously scheduled with Dr. Dubon. (3) Hypokalemia: Code(s): E87.6 - Hypokalemia Status: Acute Assessment and Plan: Potassium on admission 3.1. She was supplemented and potassium on day of discharge 3.8. She was also aggressively diuresed with furosemide 80 mg b.i.d. and metolazone 5 mg daily. She is to hold her furosemide for the evening dose today, 06/30/2020 and the morning dose on 07/01/2020. Her edema has completely resolved. She is NOT to continue metolazone at home. Potassium will not be supplemented at this time as she will no longer being aggressively diuresed. She is on spironolactone. Basic metabolic panel will be drawn on June. She is to limit her fluid to no more than 1800 cc per day due to sodium of 127 this morning. Labs were discussed with Dr. Rasmussen at 1134 by telephone including the sodium and creatinine. OK to discharge with the above plan. DS: Summary Hospital Course Reason for hospitalization: Hypokalemia and subtherapeutic INR with mechanical mitral valve. Hospital Course: 45-year-old female with a history of mechanical mitral valve placement in April of 2020 currently anticoagulated with warfarin. INR 1.7 on day of admission. She was brought to the hospital for anticoagulation with heparin until her INR was greater than 2.5. Her diuretics were continued while she was in the hospital including furosemide 80 mg b.i.d. and metolazone 5 mg daily. Her lower extremity edema has completely resolved. She still complains of shortness of breath with exertional activity. Lungs are clear to auscultation. Creatinine today up to 1.9. BUN 23. She may have been over diuresed. She is to hold her diuretics for the next 2 doses. She is not to resume the metolazone. She is continued on spironolactone for now. INR on day of discharge 2.8. She is to check her PT/INR on , July 03, 2020. She will resume her warfarin at her previous home dose now that her INR is therapeutic. Further adjustments will be made after the results are in the office on . She assured me that she will be able to get her blood drawn on . Status at Discharge Functional status at discharge: independent ambulation Overall status at discharge: patient is back to baseline Time Spent with Patient Time attestation: Total time spent providing and/or coordinating discharge services: 10 minutes to do discharge order. 15 minutes to complete discharge summary. 10 minutes in the room to
[2020-06-30 12:00] VITALS: PULSE 77
--- NOTE | 2020-06-30 15:00 | PC.NURSE ---
REVIEWED ALL DISCHARGE INSTRUCTIONS W/ PT AND ALL QUESTIONS ANSWERED. VOICED UNDERSTANDING OF ALL. DISCHARGED HOME, OUT VIA WC TO FAMILY'S WAITING CAR WITH ALL PERSONAL BELONGINGS AND DISCHARGE PACKET. NO DISTRESS NOTED. VOICES NO C/O.
== END 2020-06-30 15:00 | disposition home or self-care (01) | DRG 861 ==
PROVIDERS: Specialist; Admitting Provider Internal Medicine Cardiovascular Disease; PCP Physician Assistant; Visit Provider Nurse Practitioner Adult Health
DX: R79.1 Abnormal coagulation profile (principal); Z51.81 Encounter for therapeutic drug level monitoring; Z79.01 Long term (current) use of anticoagulants; I48.20 Chronic atrial fibrillation, unspecified; E87.6 Hypokalemia; J44.9 Chronic obstructive pulmonary disease, unspecified; G35 Multiple sclerosis; I27.20 Pulmonary hypertension, unspecified; F41.8 Other specified anxiety disorders; Z95.2 Presence of prosthetic heart valve; Z90.710 Acquired absence of both cervix and uterus; Z87.891 Personal history of nicotine dependence
CPT/HCPCS: 36415; 80048; 84132; 85025; 85610; 85730; 94640; A9270; J1644

== ENCOUNTER 2020-07-03 16:11 | Outpatient (CLI) | payer OTHER, SELFPAY ==
[2020-07-03 16:40] LABS: INR 1.7; Prothrombin Time 20.5 Seconds (11.1-14.7)
[2020-07-03 16:42] LABS: Anion Gap 9 mmol/L (8-16); Blood Urea Nitrogen 32 mg/dL (7-17); Calcium 9.6 mg/dL (8.4-10.2); Carbon Dioxide 33 mmol/L (22-30); Chloride 90 mmol/L (98-107); Estimated Glomerular Filt Rate 45; Glucose 140 mg/dL (65-105); Potassium 3.2 mmol/L (3.4-5.0); Sodium 132 mmol/L (137-145)
== END 2020-07-03 16:12 | disposition home or self-care (01) ==
LOC: ANHLAB 16:12
PROVIDERS: PCP Physician Assistant; Visit Provider Nurse Practitioner Adult Health
DX: Z79.01 Long term (current) use of anticoagulants (principal); Z95.2 Presence of prosthetic heart valve; E87.6 Hypokalemia; I42.9 Cardiomyopathy, unspecified
CPT/HCPCS: 36415; 80048; 85610

== ENCOUNTER 2020-07-04 12:23 | Inpatient (IN) | payer OTHER, SELFPAY ==
[2020-07-04] VITALS (9 sets, daily range): BP systolic 124–139; BP diastolic 45–72; PULSE 66–84; RESP 16–29; TEMP 35.7–37; O2SAT 99–100; BMI 35.4
--- NOTE | ~2020-07-04 | XR_ITS ---
EXAMINATION: XR chest 1V portable DATE: 07/06/2020 11:08 INDICATION: Chest pain. TECHNIQUE: A single frontal view of the chest was obtained. COMPARISON: Chest 2 views 07/05/2020 FINDINGS: The chest demonstrates clear lungs without pneumonia, pleural effusion, or pneumothorax. Th e heart size is normal. There are changes of heart valve replacement. There is a closure device of le ft atrial appendage. IMPRESSION: 1. No acute cardiopulmonary disease. Reviewed, dictated and finalized at location A. MILL LAB TECHNICIAN
--- NOTE | ~2020-07-04 | CT_ITS ---
EXAMINATION: CTA chest PE protocol EXAM DATE: 07/06/2020 15:46 INDICATION: Chest tightness. TECHNIQUE: Spiral CTA of the chest (pulmonary arteries) was performed with 100 cc Omnipaque 350 intr avenous contrast injection. Images were acquired during the pulmonary arterial phase. Coronal maxi mum intensity projection 3D-reconstructions were created by the technologist on dedicated workstation . Axial, coronal and sagittal reformatted images were reviewed. The dose-length product (DLP) for t his examination was 897.91 mGy-cm. The exposure was tailored according to patient size (auto mA exp osure control), and iterative reconstruction (ASIR) was used as additional dose reduction technique. Comparison is made to prior examination from 03/10/2020. FINDINGS: Surgical changes from interval, relatively recent cardiac surgery, sternotomy. Mitral valve replaceme nt. Closure device and left atrial appendage. Cardiac monitoring lead. Again there are some scattered right upper lobe predominant groundglass opacities, not significantly changed compared to prior study. Considerations include hypersensitivity pneumonitis, nonspecific int erstitial pneumonitis (NSIP), cryptogenic organized pneumonia, desquamative interstitial pneumonitis( DIP). No evidence of superimposed acute airspace disease. No pulmonary emboli. No thoracic aortic dissection. There are no pleural or pericardial effusions. Tracheobronchial tree is patent. There is a right hilar lymph node measuring 2.1 x 1.5 cm, stable co mpared to prior examination. There is no pneumothorax. Heart normal in size. Upper abdomen is unr emarkable. There is mild thoracic spondylosis without osteoblastic or osteolytic lesions identified . IMPRESSION: 1. No pulmonary emboli, acute findings or interval change. 2. Scattered right upper lobe predominant chronic groundglass opacities, differential considerations above. 3. Stable mildly enlarged right hilar lymph node, likely reactive. 4. Interval cardiac surgery. Reviewed, dictated and finalized at location A. RING SHEAR OPERATOR IMPRESSION: 1. No pulmonary emboli, acute findings or interval change. 2. Scattered right upper lobe predominant chronic groundglass opacities, diffe rential considerations above. 3. Stable mildly enlarged right hilar lymph node, likely reactive. 4. Interval cardiac surgery.
--- NOTE | ~2020-07-04 | XR_ITS ---
EXAMINATION: XR chest 1V portable DATE: 07/05/2020 10:12 INDICATION: Cough. TECHNIQUE: A single frontal view of the chest was obtained. COMPARISON: Chest single view 06/01/2020, chest CT 03/10/2020 FINDINGS: Sensitivity is decreased by obesity. There is mild atelectasis in right midlung zone. No pl eural effusion or pneumothorax. The heart size is normal. There are changes of heart valve replacemen t. There is a closure device in left atrial appendage. IMPRESSION: 1. Mild atelectasis in right midlung zone with interval improvement. Reviewed, dictated and finalized at location A. Y MAN
--- NOTE | 2020-07-04 12:38 | PC.NURSE ---
Protocol initiated. Pt states usually has to have ultrasound for IV placement and blood draws because she is such a hard stick. Lab work deferred in triage at this time.
[2020-07-04 14:13] LABS: INR 1.7; Prothrombin Time 20.4 Seconds (11.1-14.7)
[2020-07-04 14:56] LABS: Partial Thromboplastin Time 33.8 SECONDS (22.3-36.8)
[2020-07-04 15:59] LABS: Basophils Percent Auto 0.4 % (0.2-1.2); Eosinophils Absolute Auto 0.5 K/mm3 (0-0.3); Eosinophils Percent Auto 4.5 % (0-4.4); Hematocrit 33.2 % (37.0-47.0); Hemoglobin 10.1 g/dL (12.0-15.0); Immature Granulocyte Absolute 0.03 K/mm3 (0.00-0.031); Immature Granulocyte Percent A 0.3 % (0-0.5); Lymphocytes Absolute Auto 1.82 K/mm3 (0.9-3.2); Lymphocytes Percent Auto 17.3 % (18.3-44.2); Mean Corpuscular HGB Conc 30.4 g/dl (32-36); Mean Corpuscular Hemoglobin 21.6 pg (26-34); Mean Corpuscular Volume 70.9 fl (80-100); Mean Platelet Volume 9.7 fl (7.4-10.4); Monocytes Absolute Auto 0.9 K/mm3 (0.1-0.6); Monocytes Percent Auto 8.5 % (2.6-8.5); Neutrophils Absolute Auto 7.3 K/mm3 (1.3-6.7); Platelet Count Result 417 k/mm3 (150-375); Red Blood Count 4.68 M/mm3 (4.2-5.4); Red Cell Distribution Width 18.9 % (11.5-14.5); White Blood Count 10.5 K/mm3 (4.5-10.0)
[2020-07-04 16:08] LABS: INR 1.7; Prothrombin Time 20.5 Seconds (11.1-14.7)
[2020-07-04 16:09] LABS: Partial Thromboplastin Time 32.3 SECONDS (22.3-36.8)
[2020-07-04 16:13] LABS: Anion Gap 5 mmol/L (8-16); Blood Urea Nitrogen 24 mg/dL (7-17); Calcium 9.3 mg/dL (8.4-10.2); Carbon Dioxide 39 mmol/L (22-30); Chloride 88 mmol/L (98-107); Estimated CRCL calculation 73 ml/min; Estimated Glomerular Filt Rate 49; Glucose 109 mg/dL (65-105); Potassium 2.7 mmol/L (3.4-5.0); Sodium 132 mmol/L (137-145)
--- NOTE | 2020-07-04 16:28 | ED.GENADULT ---
HPI - General Adult General Chief complaint: Recheck/Abnormal Lab/Rx Stated complaint: abnormal INR Time Seen by Provider: 07/04/20 13:16 Source: patient Mode of arrival: ambulatory Limitations: no limitations History of Present Illness HPI narrative: 45-year-old with a history of cardiomyopathy s/p mechanical mitral valve here with complaints of low INR. Patient states that her primary doctor called her this morning to go to the ER as her INR is 1.7. She presently denies any chest pain, shortness of breath. Onset (ago): day(s) (1) Related Data Home Medications Medication Instructions Recorded Confirmed amantadine HCl 100 mg capsule 100 mg PO BID 12/27/19 06/26/20 dimethyl fumarate 120 mg 240 mg PO BID 12/27/19 06/26/20 capsule,delayed release oxybutynin chloride 5 mg tablet 5 mg PO BID 12/27/19 06/26/20 furosemide [Lasix] 80 mg PO BID 06/26/20 06/26/20 Allergies Allergy/AdvReac Type Severity Reaction Status Date / Time codeine Allergy Mild facial Verified 06/26/20 20:12 swelling latex Allergy Mild Rash Verified 06/26/20 20:12 cocoa butter Allergy Swelling Verified 06/26/20 20:12 coconut Allergy Swelling Verified 06/26/20 20:12 of Lip/Tongue/Throat Review of Systems Review of Systems: All systems reviewed & are unremarkable except as noted in HPI and below Constitutional: Constitutional: Reports no additional constitutional complaints Eyes: Eyes: Reports no additional eye complaints Cardiovascular: Cardiovascular: Reports no additional cardiovascular complaints Respiratory: Respiratory: Reports no additional respiratory complaints Gastrointestinal: Gastrointestinal: Reports no additional gastrointestinal complaints Musculoskeletal: Musculoskeletal: Reports no additional musculoskeletal complaints Neurologic: Reports system reviewed and no additional complaints, except as documented [facility] Past Medical History Medical History Asthma COPD (chronic obstructive pulmonary disease) Current use of medical terminologist anticoagulation Depression with anxiety Hypokalemia Mitral stenosis with regurgitation Multiple sclerosis Pulmonary hypertension Vaginal mass vaginal wall lesion that was nonmalignant by bx 11/2004 Surgical History Surgical History H/O section with one miscarriage; x3 H/O hernia repair left 01/2004 H/O mitral valve replacement with mechanical valve H/O: hysterectomy TATA 06/2004 History of cholecystectomy Hx of knee surgery left Hx of shoulder surgery 08/2005 Family History Family History Mother Diabetes mellitus CHF (congestive heart failure) Hypertension Kidney failure Son Seizure in Social History Social History Social History: 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 Smokes 1ppd x 33 yrs ( she started at age 11yo). No history of IV drug use. Lives at home with her son and daughter and boyfriend. Her other child has moved out. She denies alcohol use. She wishes to make herself a full code. She nominates her friend Bev to be the individual would make medical decisions for her if she is not able. Patient has applied for disability. The patient used to work for [employer]. Patient recently quit smoking. Daughter is Genoveva. Smoking packs per day: 2 Smoking cigarettes per day: 40.0 Years smoked: 35 Smoking pack-years: 70.00 Smoking status: Former smoker Tobacco type: cigarettes Smokeless tobacco user: chewing tobacco Second hand tobacco smoke exposure: Yes Smoking end date: 12/15/19 Additional smoking assessment comments: only 1 cigarette in the last month Alcohol intake: never Substance use: never Substance use type: does not use Gender identity (if verbalized by the
[2020-07-04] MEDS: WARFARIN (*PBKC) 10 MG TABLET PO (17:22)
[2020-07-04] MEDS: POTASSIUM CHLORIDE 20 MEQ TABLET 40 MEQ PO (17:23)
[2020-07-04] MEDS: HEPARIN SOD/D5W 100 UNITS/ML 25,000 UNITS/250 ML BAG 10 UNITS IV CONT (17:24)
--- NOTE | 2020-07-04 17:45 | PC.NURSE ---
This patient, Tatiana Elder, was admitted to Medical Room 345-01. Patient/family oriented to hospital policies and general routines including ID bracelet, bed and alarms, visiting hours, pain management, procedures, bathroom and other care routines, personal items, smoking policy, room service/diet, and visiting hours. Information on how to activate the Rapid Response Team has been discussed. Patient/Family are encouraged to report perceived risks to care and to ask questions if they do not understand what they are told or what they should do.
[2020-07-04] MEDS: ACETAMINOPHEN 325 MG TABLET 650 MG PO ×2 (18:51→23:58)
[2020-07-04 19:39] LABS: Anion Gap 8 mmol/L (8-16); Blood Urea Nitrogen 22 mg/dL (7-17); Calcium 9.2 mg/dL (8.4-10.2); Carbon Dioxide 35 mmol/L (22-30); Chloride 88 mmol/L (98-107); Estimated CRCL calculation 82 ml/min; Estimated Glomerular Filt Rate 54; Glucose 151 mg/dL (65-105); Potassium 2.8 mmol/L (3.4-5.0); Sodium 131 mmol/L (137-145)
[2020-07-04 20:04] LABS: Magnesium 1.8 mg/dL (1.6-2.3)
--- NOTE | 2020-07-04 22:18 | PM.IMHP ---
H&P: HPI History of Present Illness Date/Time: 07/04/20 22:18 Chief Complaint: Subtherapeutic INR. Narrative: This is a pleasant 45 year old female who is s/p mechanical mitral valve replacement and Maze procedure this past April 2020 with known history of atrial fibrillation on chronic anticoagulation and just admitted and discharged from the hospital four days ago by Cardiology secondary to a subtherapeutic INR and now returned to the hospital after her PCP found her INR to be 1.7 today. She has been compliant with her home medications and she has been avoiding foods that are high in Vitamin K. She is currently on 4 mg of Warfarin on Tuesday/ and 5 mg on the rest of the days of the week. The patient was given 10 mg of Warfarin PO in the ER tonight and started on IV heparin to bridge her INR. She denies any significant symptoms tonight such as chest pain, fevers, chills, shortness of breath, palpitations, abdominal pain, dysuria, hematuria, nausea, vomiting, diarrhea, or rectal bleeding. No other complaints tonight. On routine labs the patient was again found to have low serum potassium of 2.7 and was given a K rider in the ER. Review of Systems Review of Systems: All systems reviewed & are unremarkable except as noted in HPI and below PMFSH Past Medical History Medical History Asthma COPD (chronic obstructive pulmonary disease) Current use of intermission coordinator anticoagulation Depression with anxiety Hypokalemia Mitral stenosis with regurgitation Multiple sclerosis Pulmonary hypertension Vaginal mass vaginal wall lesion that was nonmalignant by bx 11/2004 Surgical History Surgical History H/O section with one miscarriage; x3 H/O hernia repair left 01/2004 H/O mitral valve replacement with mechanical valve H/O: hysterectomy TATA 06/2004 History of cholecystectomy Hx of knee surgery left Hx of shoulder surgery 08/2005 Family History Family History Mother Diabetes mellitus CHF (congestive heart failure) Hypertension Kidney failure Son Seizure in infant Social History Social History Social History: 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 Smokes 1ppd x 33 yrs ( she started at age 11yo). No history of IV drug use. Lives at home with her son and daughter and boyfriend. Her other child has moved out. She denies alcohol use. She wishes to make herself a full code. She nominates her friend Bev to be the individual would make medical decisions for her if she is not able. Patient has applied for disability. The patient used to work for [employer]. Patient recently quit smoking. Daughter is Genoveva. Smoking packs per day: 2 Smoking cigarettes per day: 40.0 Years smoked: 35 Smoking pack-years: 70.00 Smoking status: Current every day smoker Tobacco type: cigarettes Smokeless tobacco user: chewing tobacco Second hand tobacco smoke exposure: Yes Smoking end date: 12/15/19 Additional smoking assessment comments: only 1 cigarette in the last month Alcohol intake: former Substance use: never Substance use type: does not use Gender identity (if verbalized by the patient): Female Spiritual care concerns: No Meds Home Medications and Allergies Home Medications Medication Instructions Recorded Confirmed Type amantadine HCl 100 mg capsule 100 mg PO BID 12/27/19 07/04/20 History dimethyl fumarate 120 mg 240 mg PO BID 12/27/19 07/04/20 History capsule,delayed release oxybutynin chloride 5 mg tablet 5 mg PO BID 12/27/19 07/04/20 History albuterol sulfate [Proventil HFA] 1 inhalation INHALATION QID PRN 30 01/09/20 07/04/20 Rx Days #8.5 gm lisinopril 10 mg PO DAILY #30 tablet 01/09/20 07/04/20 Rx spironolactone 25
[2020-07-04 23:41] LABS: Partial Thromboplastin Time 80.8 SECONDS (22.3-36.8)
[2020-07-05] VITALS (12 sets, daily range): BP systolic 103–120; BP diastolic 51–59; PULSE 73–96; RESP 16–21; TEMP 36.4–36.6; O2SAT 97–100
[2020-07-05 06:24] LABS: Basophils Absolute Auto 0.1 K/mm3 (0.0-0.1); Eosinophils Absolute Auto 0.5 K/mm3 (0-0.3); Eosinophils Percent Auto 6.1 % (0-4.4); Hematocrit 30.8 % (37.0-47.0); Hemoglobin 9.1 g/dL (12.0-15.0); Immature Granulocyte Absolute 0.07 K/mm3 (0.00-0.031); Immature Granulocyte Percent A 0.8 % (0-0.5); Lymphocytes Absolute Auto 2.09 K/mm3 (0.9-3.2); Mean Corpuscular HGB Conc 29.5 g/dl (32-36); Mean Corpuscular Hemoglobin 20.4 pg (26-34); Mean Corpuscular Volume 69.2 fl (80-100); Mean Platelet Volume 9.6 fl (7.4-10.4); Monocytes Absolute Auto 0.8 K/mm3 (0.1-0.6); Monocytes Percent Auto 9.7 % (2.6-8.5); Neutrophils Absolute Auto 4.8 K/mm3 (1.3-6.7); Neutrophils Percent Auto 57.4 % (45.5-73.1); Platelet Count Result 433 k/mm3 (150-375); Red Blood Count 4.45 M/mm3 (4.2-5.4); Red Cell Distribution Width 18.4 % (11.5-14.5); White Blood Count 8.4 K/mm3 (4.5-10.0)
[2020-07-05 06:44] LABS: Partial Thromboplastin Time 76.6 SECONDS (22.3-36.8)
[2020-07-05 07:22] LABS: Hypochromasia 1+ (NORMAL); Ovalocytes 1+ (NORMAL)
[2020-07-05 07:23] LABS: Platelet Estimate Adequate (Adequate)
[2020-07-05 08:09] LABS: INR 1.7; Prothrombin Time 20.5 Seconds (11.1-14.7)
[2020-07-05 08:19] LABS: Anion Gap 5 mmol/L (8-16); Blood Urea Nitrogen 16 mg/dL (7-17); Carbon Dioxide 32 mmol/L (22-30); Chloride 95 mmol/L (98-107); Estimated CRCL calculation 90 ml/min; Estimated Glomerular Filt Rate > 60; Glucose 116 mg/dL (65-105); Potassium 3.1 mmol/L (3.4-5.0); Sodium 132 mmol/L (137-145)
[2020-07-05] MEDS: FUROSEMIDE 40 MG TABLET 80 MG PO ×2 (09:38→16:46)
[2020-07-05] MEDS: SPIRONOLACTONE 25 MG TABLET PO (09:39)
[2020-07-05] MEDS: lisinopriL 10 MG TABLET PO (09:39)
[2020-07-05] MEDS: amantadine HCL 100 MG CAPSULE PO ×2 (09:39→16:47)
[2020-07-05] MEDS: carvediloL 6.25 MG TABLET PO ×2 (09:39→16:47)
[2020-07-05] MEDS: PANTOPRAZOLE 40 MG TABLET PO (09:40)
--- NOTE | 2020-07-05 09:55 | ECG_ITS ---
Measurements Intervals [place] Rate: 74 P: 77 [place]: 147 QRS: 60 QRSD: 93 T: 114 QT: 388 QTc: 431 Interpretive Statements SINUS RHYTHM BORDERLINE ST-T WAVE ABNORMALITY- ANTEROLAT/HIGH LAT LEADS BORDERLINE ECG Electronically Signed On 07-05-2020 16:53:40 RECIPROCATING DRILL OPERATOR by Jonah Gómez D.O.
--- NOTE | 2020-07-05 09:56 | P.PNIM_ITS ---
Progress Note: A&P Assessment and Plan (1) Subtherapeutic international normalized ratio (INR): Code(s): R79.1 - Abnormal coagulation profile Status: Acute Assessment and Plan: Hx of mechanical mitral valve replacement and atrial fibrillation. Goal INR 2.5- 3.5. She is admitted for IV heparin due to subtherapeutic INR of 1.7 and PT 20.5 at admission. She received 10mg of PO warfarin in the ER. She has been initiated on Heparin IV for bridging her INR. * Recommend we increase her weekly dose by 10%. * This can be achieved by having her take 6 mg of Warfarin on / and continue to take 5 mg the rest of the days of the week. * Continue to monitor PT/INR closely and continue to adjust warfarin as needed. (2) Current use of terminal make up operator anticoagulation: Code(s): Z79.01 - intermediate (current) use of anticoagulants Status: Acute Assessment and Plan: Required due to mechanical mitral valve. Goal INR 2.5-3.5. Currently subtherapeutic. Plan as above. (3) H/O mitral valve replacement with mechanical valve: Code(s): Z95.2 - Presence of prosthetic heart valve Status: Chronic Assessment and Plan: She is s/p mitral valve replacement by Dr. Dubon at [facility]. The patient recently had her mitral valve replaced and still has some midsternal chest tenderness at the site of the surgery. She appears euvolemic and is taking lasix as prescribed. * Continue lasix * Monitor volume status closely with strict intake and output, daily weight * Continue follow-up outpatient with Dr. Dubon (4) Hypokalemia: Code(s): E87.6 - Hypokalemia Status: Acute Assessment and Plan: Secondary to diuretic use. She has no GI losses. She received 40mEq IV potassium and 40mEq PO potassium. Repeat potassium is 3.1 today. * Give 40mEq PO potassium * Continue to monitor (5) Obstructive sleep apnea: Code(s): G47.33 - Obstructive sleep apnea (adult) (pediatric) Status: Chronic Assessment and Plan: * CPAP will be available while inpatient. (6) Multiple sclerosis: Code(s): G35 - Multiple sclerosis Status: Chronic Assessment and Plan: * Continue dimethyl fumarate and amantadine (7) COPD (chronic obstructive pulmonary disease): Qualifiers: COPD type: unspecified COPD Qualified Code(s): J44.9 - Chronic obstructive pulmonary disease, unspecified Code(s): J44.9 - Chronic obstructive pulmonary disease, unspecified Status: Chronic Assessment and Plan: Not in acute exacerbation. * Continue PRN bronchodilators as needed * Continue symbicort and Spiriva * Smoking cessation has been encouraged (8) Chest discomfort: Code(s): R07.89 - Other chest pain Status: Acute Assessment and Plan: Intermittent and not currently present. Likely secondary to discomfort at the surgical site as it is still healing. Will check CXR, EKG, and troponin. ACS felt unlikely. She is on telemetry monitoring which demonstrates sinus rhythm. (9) Anemia: Code(s): D64.9 - Anemia, unspecified Status: Acute Assessment and Plan: Chronic and normocytic. Labs are at baseline. She has no evidence of acute bleeding. * Will check iron, vitamin B12, folate * She will need outpatient follow-up * Transfuse as needed to maintain Hb >7 * Continue to monitor Additional Plan Add mu
--- NOTE | 2020-07-05 09:56 | PM.IMPN ---
Progress Note: A&P Assessment and Plan (1) Subtherapeutic international normalized ratio (INR): Code(s): R79.1 - Abnormal coagulation profile Status: Acute Assessment and Plan: Hx of mechanical mitral valve replacement and atrial fibrillation. Goal INR 2.5-3.5. She is admitted for IV heparin due to subtherapeutic INR of 1.7 and PT 20.5 at admission. She received 10mg of PO warfarin in the ER. She has been initiated on Heparin IV for bridging her INR. Recommend we increase her weekly dose by 10%. This can be achieved by having her take 6 mg of Warfarin on / and continue to take 5 mg the rest of the days of the week. Continue to monitor PT/INR closely and continue to adjust warfarin as needed. (2) Current use of skilled nursing anticoagulation: Code(s): Z79.01 - bunch breaker (current) use of anticoagulants Status: Acute Assessment and Plan: Required due to mechanical mitral valve. Goal INR 2.5-3.5. Currently subtherapeutic. Plan as above. (3) H/O mitral valve replacement with mechanical valve: Code(s): Z95.2 - Presence of prosthetic heart valve Status: Chronic Assessment and Plan: She is s/p mitral valve replacement by Dr. Dubon at [facility]. The patient recently had her mitral valve replaced and still has some midsternal chest tenderness at the site of the surgery. She appears euvolemic and is taking lasix as prescribed. Continue lasix Monitor volume status closely with strict intake and output, daily weight Continue follow-up outpatient with Dr. Dubon (4) Hypokalemia: Code(s): E87.6 - Hypokalemia Status: Acute Assessment and Plan: Secondary to diuretic use. She has no GI losses. She received 40mEq IV potassium and 40mEq PO potassium. Repeat potassium is 3.1 today. Give 40mEq PO potassium Continue to monitor (5) Obstructive sleep apnea: Code(s): G47.33 - Obstructive sleep apnea (adult) (pediatric) Status: Chronic Assessment and Plan: CPAP will be available while inpatient. (6) Multiple sclerosis: Code(s): G35 - Multiple sclerosis Status: Chronic Assessment and Plan: Continue dimethyl fumarate and amantadine (7) COPD (chronic obstructive pulmonary disease): Qualifiers: COPD type: unspecified COPD Qualified Code(s): J44.9 - Chronic obstructive pulmonary disease, unspecified Code(s): J44.9 - Chronic obstructive pulmonary disease, unspecified Status: Chronic Assessment and Plan: Not in acute exacerbation. Continue PRN bronchodilators as needed Continue symbicort and Spiriva Smoking cessation has been encouraged (8) Chest discomfort: Code(s): R07.89 - Other chest pain Status: Acute Assessment and Plan: Intermittent and not currently present. Likely secondary to discomfort at the surgical site as it is still healing. Will check CXR, EKG, and troponin. ACS felt unlikely. She is on telemetry monitoring which demonstrates sinus rhythm. (9) Anemia: Code(s): D64.9 - Anemia, unspecified Status: Acute Assessment and Plan: Chronic and normocytic. Labs are at baseline. She has no evidence of acute bleeding. Will check iron, vitamin B12, folate She will need outpatient follow-up Transfuse as needed to maintain Hb >7 Continue to monitor Additional Plan Add mucinex and check CXR for cough. This is chronic per pt and she has been encouraged to stop smoking. She has interstitial lung disease and follows with pulmonology. Subjective Date/time seen: 07/05/20 09:56 Mrs. Elder is a 45 y.o. female with PMH significant for mechanical mitral valve replacement in April 2020 and currently anticoagulated with warfarin, asthma/COPD, depression, and multiple sclerosis who is seen in follow-up for subtherapeutic INR. She is doing well. She notes a william,
--- NOTE | 2020-07-05 10:49 | PHAR ---
Home medication seen in pharmacy and returned to [facility] nursing unit. Dimethyl Fumarate 240mg capsules
[2020-07-05 10:53] LABS: Troponin I < 0.012 ng/mL (0.000-0.034)
[2020-07-05] MEDS: POTASSIUM CHLORIDE 20 MEQ TABLET 40 MEQ PO (11:15)
[2020-07-05 12:47] LABS: Partial Thromboplastin Time 92.5 SECONDS (22.3-36.8)
[2020-07-05] MEDS: HEPARIN SOD/D5W 100 UNITS/ML 25,000 UNITS/250 ML BAG 10 UNITS IV CONT (13:39)
[2020-07-05] MEDS: WARFARIN (*PBKC) 5 MG TABLET PO (16:47)
[2020-07-05] MEDS: guaiFENesin 12 HR 600 MG TABCR 1200 MG PO (20:14)
[2020-07-05] MEDS: ACETAMINOPHEN 500 MG TABLET PO (20:25)
[2020-07-06] VITALS (14 sets, daily range): BP systolic 98–160; BP diastolic 44–74; PULSE 67–85; RESP 16–20; TEMP 36.1–36.9; O2SAT 98–99
[2020-07-06 06:21] LABS: Hematocrit 32.4 % (37.0-47.0); Hemoglobin 9.5 g/dL (12.0-15.0); Mean Corpuscular HGB Conc 29.3 g/dl (32-36); Mean Corpuscular Hemoglobin 21.3 pg (26-34); Mean Corpuscular Volume 72.6 fl (80-100); Mean Platelet Volume 9.6 fl (7.4-10.4); Platelet Count Result 429 k/mm3 (150-375); Red Blood Count 4.46 M/mm3 (4.2-5.4); Red Cell Distribution Width 18.9 % (11.5-14.5); White Blood Count 7.4 K/mm3 (4.5-10.0)
[2020-07-06 06:25] LABS: INR 2.1; Prothrombin Time 23.7 Seconds (11.1-14.7)
[2020-07-06 06:37] LABS: Anion Gap 5 mmol/L (8-16); Blood Urea Nitrogen 15 mg/dL (7-17); Calcium 8.6 mg/dL (8.4-10.2); Carbon Dioxide 32 mmol/L (22-30); Chloride 95 mmol/L (98-107); Estimated CRCL calculation 82 ml/min; Estimated Glomerular Filt Rate 54; Glucose 118 mg/dL (65-105); Magnesium 1.8 mg/dL (1.6-2.3); Potassium 3.2 mmol/L (3.4-5.0); Sodium 132 mmol/L (137-145)
[2020-07-06 06:55] LABS: Iron 19 ug/dL (37-170)
[2020-07-06 07:04] LABS: Percent Iron Saturation 5 % (20-50)
[2020-07-06 07:29] LABS: Partial Thromboplastin Time 62.1 SECONDS (22.3-36.8)
[2020-07-06 07:38] LABS: Folic Acid 8.6 ng/mL (2.76->20)
[2020-07-06] MEDS: HEPARIN SODIUM 5,000 UNITS/ML VIAL 3500 UNITS IV PUSH (07:51)
[2020-07-06] MEDS: amantadine HCL 100 MG CAPSULE PO ×2 (08:17→17:25)
[2020-07-06] MEDS: guaiFENesin 12 HR 600 MG TABCR 1200 MG PO ×2 (08:18→21:11)
[2020-07-06] MEDS: carvediloL 6.25 MG TABLET PO ×2 (08:36→17:24)
[2020-07-06] MEDS: lisinopriL 10 MG TABLET PO (08:37)
[2020-07-06] MEDS: PANTOPRAZOLE 40 MG TABLET PO (08:37)
[2020-07-06] MEDS: FUROSEMIDE 40 MG TABLET 80 MG PO ×2 (08:37→17:24)
[2020-07-06] MEDS: SPIRONOLACTONE 25 MG TABLET PO (08:37)
[2020-07-06] MEDS: POTASSIUM CHLORIDE 20 MEQ TABLET 40 MEQ PO (09:27)
[2020-07-06] MEDS: FERROUS SULFATE 324 MG TABLET PO (09:28)
--- NOTE | 2020-07-06 10:30 | PC.NURSE ---
Went to patient room after seeing rapid beats on the laboratory monitor. She was standing at the window talking on the phone. She voiced that she was having chest tightness. I recommended that she get in bed. After getting in bed she voiced that the tightness was getting worse. 1030 Rapid response was called. Vital signs being taken. 1031 Charge nurse arrived to room. 1033 rapid response team here in room.
[2020-07-06 10:33] LABS: Glucose Point of Care 112 (65-105)
[2020-07-06] MEDS: ACETAMINOPHEN 500 MG TABLET PO (10:41)
--- NOTE | 2020-07-06 10:42 | PM.IMPN ---
Progress Note: A&P Assessment and Plan (1) Subtherapeutic international normalized ratio (INR): Code(s): R79.1 - Abnormal coagulation profile Status: Acute Assessment and Plan: Hx of mechanical mitral valve replacement and atrial fibrillation. Goal INR 2.5-3.5. She is admitted for IV heparin due to subtherapeutic INR of 1.7 and PT 20.5 at admission. She received 10mg of PO warfarin in the ER 07/04. She has been initiated on Heparin IV for bridging her INR. INR is 2.1 today and PT 23.7. Recommend we increase her weekly dose by 10%. This can be achieved by having her take 6 mg of Warfarin on /Th and continue to take 5 mg the rest of the days of the week. Continue to monitor PT/INR closely and continue to adjust warfarin as needed. (2) Current use of exterminator helper anticoagulation: Code(s): Z79.01 - terminal computer operator (current) use of anticoagulants Status: Acute Assessment and Plan: Required due to mechanical mitral valve. Goal INR 2.5-3.5. Currently subtherapeutic. Plan as above. (3) H/O mitral valve replacement with mechanical valve: Code(s): Z95.2 - Presence of prosthetic heart valve Status: Chronic Assessment and Plan: She is s/p mitral valve replacement by Dr. Dubon at [facility]. The patient recently had her mitral valve replaced and still has some midsternal chest tenderness at the site of the surgery. She appears euvolemic and is taking lasix as prescribed. Continue lasix Monitor volume status closely with strict intake and output, daily weight Continue follow-up outpatient with Dr. Dubon (4) Hypokalemia: Code(s): E87.6 - Hypokalemia Status: Acute Assessment and Plan: Secondary to diuretic use. She has no GI losses. Potassium is 3.2 today. Continue PO potassium supplementation, will give 40mEq PO potassium today Continue to monitor (5) Obstructive sleep apnea: Code(s): G47.33 - Obstructive sleep apnea (adult) (pediatric) Status: Chronic Assessment and Plan: CPAP will be available while inpatient. (6) Multiple sclerosis: Code(s): G35 - Multiple sclerosis Status: Chronic Assessment and Plan: Continue dimethyl fumarate and amantadine (7) COPD (chronic obstructive pulmonary disease): Qualifiers: COPD type: unspecified COPD Qualified Code(s): J44.9 - Chronic obstructive pulmonary disease, unspecified Code(s): J44.9 - Chronic obstructive pulmonary disease, unspecified Status: Chronic Assessment and Plan: Not in acute exacerbation. Continue PRN bronchodilators as needed Continue symbicort and Spiriva Smoking cessation has been encouraged (8) Chest discomfort: Code(s): R07.89 - Other chest pain Status: Acute Assessment and Plan: Intermittent. Likely secondary to discomfort at the surgical site as it is still healing. CXR was normal. EKG and troponin negative for ACS 07/05/20. She had a normal cardiac catheterization 03/11/20. She is on telemetry monitoring which demonstrates sinus rhythm and infrequent PVCs. STAT EKG and troponin repeated. Troponin is negative and EKG unchanged with no concerning ST-T changes. CXR negative. Pain is likely post-op discomfort. Will order chest CTA since she does note some pleuritic discomfort, she is on warfarin which is subtherapeutic with many recent hospitalizations Will check troponin at 3 and 6 hours Check lipase Continue to monitor (9) Anemia: Code(s): D64.9 - Anemia, unspecified Status: Acute Assessment and Plan: Chronic and normocytic. Labs are at baseline. She has no evidence of acute bleeding. Iron studies are consistent with iron deficiency anemia. Vitamin B12 and folate are sufficient. She will need outpatient follow-up Transfuse as needed to maintain Hb >7 Continue to monitor (10) Cough:
[2020-07-06 11:06] LABS: Troponin I < 0.012 ng/mL (0.000-0.034)
[2020-07-06 11:14] LABS: Lipase 268 U/L (23-300)
[2020-07-06] MEDS: HEPARIN SOD/D5W 100 UNITS/ML 25,000 UNITS/250 ML BAG 12 UNITS IV CONT (13:44)
[2020-07-06 15:55] LABS: Troponin I 0.015 ng/mL (0.000-0.034)
[2020-07-06 15:56] LABS: Partial Thromboplastin Time > 200.0 SECONDS (22.3-36.8)
[2020-07-06] MEDS: WARFARIN (*PBKC) 4 MG TABLET 8 MG PO (17:18)
[2020-07-06] MEDS: HEPARIN SOD/D5W 100 UNITS/ML 25,000 UNITS/250 ML BAG 9 UNITS IV CONT (17:32)
[2020-07-06 19:42] LABS: Troponin I < 0.012 ng/mL (0.000-0.034)
[2020-07-07] VITALS (10 sets, daily range): BP systolic 94–122; BP diastolic 52–61; PULSE 74–94; RESP 16–18; TEMP 36.1–36.5; O2SAT 97–100
[2020-07-07 00:17] LABS: Partial Thromboplastin Time 43.1 SECONDS (22.3-36.8)
[2020-07-07] MEDS: HEPARIN SODIUM 5,000 UNITS/ML VIAL 4000 UNITS IV PUSH (00:32)
[2020-07-07 06:58] LABS: Hematocrit 31.9 % (37.0-47.0); Hemoglobin 9.4 g/dL (12.0-15.0); Mean Corpuscular HGB Conc 29.5 g/dl (32-36); Mean Corpuscular Hemoglobin 21.3 pg (26-34); Mean Corpuscular Volume 72.2 fl (80-100); Mean Platelet Volume 9.5 fl (7.4-10.4); Platelet Count Result 479 k/mm3 (150-375); Red Blood Count 4.42 M/mm3 (4.2-5.4); Red Cell Distribution Width 19.2 % (11.5-14.5); White Blood Count 7.7 K/mm3 (4.5-10.0)
[2020-07-07 07:08] LABS: INR 1.9; Prothrombin Time 22.7 Seconds (11.1-14.7)
[2020-07-07 07:09] LABS: Anion Gap 5 mmol/L (8-16); Blood Urea Nitrogen 14 mg/dL (7-17); Calcium 8.6 mg/dL (8.4-10.2); Carbon Dioxide 32 mmol/L (22-30); Chloride 95 mmol/L (98-107); Estimated CRCL calculation 90 ml/min; Estimated Glomerular Filt Rate > 60; Glucose 98 mg/dL (65-105); Potassium 3.3 mmol/L (3.4-5.0); Sodium 132 mmol/L (137-145)
[2020-07-07 07:29] LABS: Partial Thromboplastin Time 181.2 SECONDS (22.3-36.8)
[2020-07-07] MEDS: guaiFENesin 12 HR 600 MG TABCR 1200 MG PO ×2 (08:14→20:07)
[2020-07-07] MEDS: FUROSEMIDE 40 MG TABLET 80 MG PO ×2 (08:14→16:33)
[2020-07-07] MEDS: amantadine HCL 100 MG CAPSULE PO ×2 (08:15→16:33)
[2020-07-07] MEDS: carvediloL 6.25 MG TABLET PO ×2 (08:15→16:33)
[2020-07-07] MEDS: PANTOPRAZOLE 40 MG TABLET PO (08:15)
[2020-07-07] MEDS: FERROUS SULFATE 324 MG TABLET PO (08:15)
[2020-07-07] MEDS: SPIRONOLACTONE 25 MG TABLET PO (08:15)
[2020-07-07] MEDS: lisinopriL 10 MG TABLET PO (08:15)
[2020-07-07] MEDS: POTASSIUM CHLORIDE 20 MEQ TABLET.ER 40 MEQ PO ×2 (08:34→16:32)
--- NOTE | 2020-07-07 11:28 | PM.IMPN ---
Progress Note: A&P Assessment and Plan (1) Subtherapeutic international normalized ratio (INR): Code(s): R79.1 - Abnormal coagulation profile Status: Acute Assessment and Plan: Hx of mechanical mitral valve replacement and atrial fibrillation. Goal INR 2.5-3.5. She is admitted for IV heparin due to subtherapeutic INR of 1.7 and PT 20.5 at admission. She received 10mg of PO warfarin in the ER 07/04. She has been initiated on Heparin IV for bridging her INR. INR is 1.9. Discussed with Dr. Dougherty who recommended 8mg for 07/06 and increase dose to 6mg daily Will ask cardiology to see her as well Continue to monitor PT/INR closely and continue to adjust warfarin as needed (2) Current use of terminal supervisor anticoagulation: Code(s): Z79.01 - termite control servicer (current) use of anticoagulants Status: Acute Assessment and Plan: Required due to mechanical mitral valve. Goal INR 2.5-3.5. Currently subtherapeutic. Plan as above. (3) H/O mitral valve replacement with mechanical valve: Code(s): Z95.2 - Presence of prosthetic heart valve Status: Chronic Assessment and Plan: She is s/p mitral valve replacement by Dr. Dubon at [facility]. The patient recently had her mitral valve replaced and still has some midsternal chest tenderness at the site of the surgery. She appears euvolemic and is taking lasix as prescribed. Continue lasix Monitor volume status closely with strict intake and output, daily weight Continue follow-up outpatient with Dr. Dubon (4) Hypokalemia: Code(s): E87.6 - Hypokalemia Status: Acute Assessment and Plan: Secondary to diuretic use. She has no GI losses. Potassium is 3.3 today. Continue PO potassium supplementation, will increase to 40mg BID Continue to monitor (5) Obstructive sleep apnea: Code(s): G47.33 - Obstructive sleep apnea (adult) (pediatric) Status: Chronic Assessment and Plan: CPAP will be available while inpatient. (6) Multiple sclerosis: Code(s): G35 - Multiple sclerosis Status: Chronic Assessment and Plan: Continue dimethyl fumarate and amantadine (7) COPD (chronic obstructive pulmonary disease): Qualifiers: COPD type: unspecified COPD Qualified Code(s): J44.9 - Chronic obstructive pulmonary disease, unspecified Code(s): J44.9 - Chronic obstructive pulmonary disease, unspecified Status: Chronic Assessment and Plan: Not in acute exacerbation. Continue PRN bronchodilators as needed Continue symbicort and Spiriva Smoking cessation has been encouraged (8) Chest discomfort: Code(s): R07.89 - Other chest pain Status: Acute Assessment and Plan: Intermittent. Likely secondary to discomfort at the surgical site as it is still healing. CXR was normal. EKG and troponin negative for ACS 07/05/20. She had a normal cardiac catheterization 03/11/20. She is on telemetry monitoring which demonstrates sinus rhythm and infrequent PVCs. STAT EKG and troponinx3 were repeated 07/06 given episode of pain and negative for ACS. CXR negative. Pain is likely post-op discomfort. Chest CTA was negative for PE - she does have interstitial lung disease and follows with cardiology. Telemetry is unremarkable. Continue to monitor (9) Anemia: Code(s): D64.9 - Anemia, unspecified Status: Acute Assessment and Plan: Chronic and normocytic. Labs are at baseline. She has no evidence of acute bleeding. Iron studies are consistent with iron deficiency anemia. Vitamin B12 and folate are sufficient. She will need outpatient follow-up Transfuse as needed to maintain Hb >7 Continue to monitor (10) Cough: Code(s): R05 - Cough Status: Acute Assessment and Plan: Chronic. CXR without acute pathology. Cough is chronic per pt and she has been encouraged to sto
[2020-07-07] MEDS: HEPARIN SOD/D5W 100 UNITS/ML 25,000 UNITS/250 ML BAG 9 UNITS IV CONT (15:16)
[2020-07-07] MEDS: WARFARIN (*PBKC) 3 MG TABLET 6 MG PO (16:32)
[2020-07-07] MEDS: OXYBUTYNIN CHLORIDE 5 MG TABLET PO (16:32)
[2020-07-07 21:27] LABS: Partial Thromboplastin Time 63.5 SECONDS (22.3-36.8)
[2020-07-07] MEDS: HEPARIN SODIUM 5,000 UNITS/ML VIAL 3500 UNITS IV PUSH (21:52)
[2020-07-08] VITALS (7 sets, daily range): BP systolic 110–127; BP diastolic 57–61; PULSE 65–80; RESP 14–23; TEMP 36–36.8; O2SAT 97–100
[2020-07-08] MEDS: MELATONIN 3 MG TABLET PO (01:06)
[2020-07-08 04:39] LABS: Hematocrit 29.4 % (37.0-47.0); Hemoglobin 8.9 g/dL (12.0-15.0); Mean Corpuscular HGB Conc 30.3 g/dl (32-36); Mean Corpuscular Hemoglobin 21.5 pg (26-34); Mean Platelet Volume 9.1 fl (7.4-10.4); Platelet Count Result 448 k/mm3 (150-375); Red Blood Count 4.14 M/mm3 (4.2-5.4); Red Cell Distribution Width 19.1 % (11.5-14.5)
[2020-07-08 04:52] LABS: INR 2.2; Prothrombin Time 25.2 Seconds (11.1-14.7)
[2020-07-08 04:56] LABS: Anion Gap 4 mmol/L (8-16); Blood Urea Nitrogen 15 mg/dL (7-17); Carbon Dioxide 30 mmol/L (22-30); Chloride 98 mmol/L (98-107); Estimated CRCL calculation 75 ml/min; Estimated Glomerular Filt Rate 49; Glucose 101 mg/dL (65-105); Potassium 4.1 mmol/L (3.4-5.0); Sodium 132 mmol/L (137-145)
[2020-07-08 04:59] LABS: Partial Thromboplastin Time 188.1 SECONDS (22.3-36.8)
[2020-07-08] MEDS: POTASSIUM CHLORIDE 20 MEQ TABLET.ER 40 MEQ PO (09:36)
[2020-07-08] MEDS: ACETAMINOPHEN 500 MG TABLET PO ×2 (09:36→22:04)
[2020-07-08] MEDS: FERROUS SULFATE 324 MG TABLET PO (09:37)
[2020-07-08] MEDS: guaiFENesin 12 HR 600 MG TABCR 1200 MG PO ×2 (09:37→20:07)
[2020-07-08] MEDS: SPIRONOLACTONE 25 MG TABLET PO (09:37)
[2020-07-08] MEDS: amantadine HCL 100 MG CAPSULE PO ×2 (09:37→17:35)
[2020-07-08] MEDS: PANTOPRAZOLE 40 MG TABLET PO (09:37)
[2020-07-08] MEDS: OXYBUTYNIN CHLORIDE 5 MG TABLET PO ×2 (09:37→17:35)
[2020-07-08] MEDS: lisinopriL 10 MG TABLET PO (09:37)
[2020-07-08] MEDS: FUROSEMIDE 40 MG TABLET 80 MG PO ×2 (09:38→17:35)
[2020-07-08] MEDS: carvediloL 6.25 MG TABLET PO ×2 (09:38→17:36)
[2020-07-08 11:52] LABS: Partial Thromboplastin Time 63.1 SECONDS (22.3-36.8)
--- NOTE | 2020-07-08 12:09 | PM.IMPN ---
Progress Note: A&P Assessment and Plan (1) Subtherapeutic international normalized ratio (INR): Code(s): R79.1 - Abnormal coagulation profile Status: Acute Assessment and Plan: Hx of mechanical mitral valve replacement and atrial fibrillation. Goal INR 2.5-3.5. She is admitted for IV heparin due to subtherapeutic INR of 1.7 and PT 20.5 at admission. She received 10mg of PO warfarin in the ER 07/04. She has been initiated on Heparin IV for bridging her INR. INR is 2.2 today. Continue 6 mg PO warfarin daily. Received 8 mg 07/06. 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 Goal INR 2.5-3.5. Currently subtherapeutic. Plan as above. (3) H/O mitral valve replacement with mechanical valve: Code(s): Z95.2 - Presence of prosthetic heart valve Status: Chronic Assessment and Plan: She is s/p mitral valve replacement by Dr. Dubon at [facility]. The patient recently had her mitral valve replaced and still has some midsternal soreness at the site of the surgery. She appears euvolemic and is taking lasix as prescribed. Continue lasix Monitor volume status closely with strict intake and output, daily weight Continue follow-up outpatient with Dr. Dubon (4) Hypokalemia: Code(s): E87.6 - Hypokalemia Status: Acute Assessment and Plan: Secondary to diuretic use. She has no GI losses. Potassium is 4.1 today. Continue PO potassium supplementation, will increase to 40mg BID Continue to monitor (5) Obstructive sleep apnea: Code(s): G47.33 - Obstructive sleep apnea (adult) (pediatric) Status: Chronic Assessment and Plan: CPAP will be available while inpatient. (6) Multiple sclerosis: Code(s): G35 - Multiple sclerosis Status: Chronic Assessment and Plan: Continue dimethyl fumarate and amantadine (7) COPD (chronic obstructive pulmonary disease): Qualifiers: COPD type: unspecified COPD Qualified Code(s): J44.9 - Chronic obstructive pulmonary disease, unspecified Code(s): J44.9 - Chronic obstructive pulmonary disease, unspecified Status: Chronic Assessment and Plan: Not in acute exacerbation. Continue PRN bronchodilators as needed Continue symbicort and Spiriva Smoking cessation has been encouraged (8) Chest discomfort: Code(s): R07.89 - Other chest pain Status: Acute Assessment and Plan: Intermittent. Likely secondary to discomfort at the surgical site as it is still healing. CXR was normal. EKG and troponin negative for ACS 07/05/20. She had a normal cardiac catheterization 03/11/20. She is on telemetry monitoring which demonstrates sinus rhythm and infrequent PVCs. STAT EKG and troponinx3 were repeated 07/06 given episode of pain and negative for ACS. CXR negative. Pain is likely post-op discomfort. Chest CTA was negative for PE - she does have interstitial lung disease and follows with cardiology. Telemetry is unremarkable. Continue to monitor (9) Anemia: Code(s): D64.9 - Anemia, unspecified Status: Acute Assessment and Plan: Chronic and normocytic. Labs are at baseline. Iron studies are consistent with iron deficiency anemia. Vitamin B12 and folate are sufficient. H&H stable. Vitals are stable with no evidence of active bleeding. She will need outpatient follow-up Transfuse as needed to maintain Hb >7 Continue to monitor (10) Cough: Code(s): R05 - Cough Status: Acute Assessment and Plan: Chronic. CXR without acute pathology. Cough is chronic per pt and she has been encouraged
[2020-07-08] MEDS: HEPARIN SODIUM 5,000 UNITS/ML VIAL 3500 UNITS IV PUSH (14:52)
[2020-07-08] MEDS: LORazepam (*CRX) 0.5 MG TABLET PO (17:35)
[2020-07-08] MEDS: WARFARIN (*PBKC) 3 MG TABLET 6 MG PO (17:35)
[2020-07-08] MEDS: HEPARIN SOD/D5W 100 UNITS/ML 25,000 UNITS/250 ML BAG 10 UNITS IV CONT (17:42)
[2020-07-08] MEDS: MELATONIN 5 MG TABLET PO (20:07)
[2020-07-08 23:13] LABS: INR 2.1; Prothrombin Time 24.2 Seconds (11.1-14.7)
[2020-07-08 23:15] LABS: Partial Thromboplastin Time 80.2 SECONDS (22.3-36.8)
[2020-07-09 05:15] LABS: Hematocrit 29.6 % (37.0-47.0); Hemoglobin 8.8 g/dL (12.0-15.0); Mean Corpuscular HGB Conc 29.7 g/dl (32-36); Mean Corpuscular Volume 70.6 fl (80-100); Platelet Count Result 409 k/mm3 (150-375); Red Blood Count 4.19 M/mm3 (4.2-5.4); Red Cell Distribution Width 19.2 % (11.5-14.5); White Blood Count 8.6 K/mm3 (4.5-10.0)
[2020-07-09 05:25] LABS: INR 2.1
[2020-07-09 05:27] LABS: Partial Thromboplastin Time 74.9 SECONDS (22.3-36.8)
[2020-07-09 05:28] LABS: Anion Gap 6 mmol/L (8-16); Blood Urea Nitrogen 15 mg/dL (7-17); Calcium 9.2 mg/dL (8.4-10.2); Carbon Dioxide 30 mmol/L (22-30); Chloride 97 mmol/L (98-107); Estimated CRCL calculation 75 ml/min; Estimated Glomerular Filt Rate 49; Glucose 104 mg/dL (65-105); Potassium 4.4 mmol/L (3.4-5.0); Sodium 133 mmol/L (137-145)
[2020-07-09 05:52] VITALS: BP 134/75; PULSE 80; RESP 12; TEMP 36.6; O2SAT 98
[2020-07-09] MEDS: SPIRONOLACTONE 25 MG TABLET PO (08:07)
[2020-07-09] MEDS: FUROSEMIDE 40 MG TABLET 80 MG PO (08:07)
[2020-07-09] MEDS: POTASSIUM CHLORIDE 20 MEQ TABLET.ER 40 MEQ PO (08:07)
[2020-07-09] MEDS: FERROUS SULFATE 324 MG TABLET PO (08:07)
[2020-07-09] MEDS: OXYBUTYNIN CHLORIDE 5 MG TABLET PO (08:07)
[2020-07-09] MEDS: amantadine HCL 100 MG CAPSULE PO (08:07)
[2020-07-09] MEDS: PANTOPRAZOLE 40 MG TABLET PO (08:07)
[2020-07-09 08:08] VITALS: PULSE 80
[2020-07-09] MEDS: lisinopriL 10 MG TABLET PO (08:08)
[2020-07-09] MEDS: guaiFENesin 12 HR 600 MG TABCR 1200 MG PO (08:08)
[2020-07-09] MEDS: carvediloL 6.25 MG TABLET PO (08:08)
--- NOTE | 2020-07-09 12:50 | PM.IMPN ---
Progress Note: A&P Assessment and Plan (1) Subtherapeutic international normalized ratio (INR): Code(s): R79.1 - Abnormal coagulation profile Status: Acute Assessment and Plan: Hx of mechanical mitral valve replacement and atrial fibrillation. Goal INR 2.5-3.5. She is admitted for IV heparin due to subtherapeutic INR of 1.7 and PT 20.5 at admission. She received 10mg of PO warfarin in the ER 07/04. She has been initiated on Heparin IV for bridging her INR. Etiology for subtherapeutic INR not entirely clear. It is possible patient is noncompliant with medications, though she reports consistency in taking warfarin. Her home meds have been thoroughly reviewed and no interactions noted. She reports avoidance of foods that are high in vitamin K. INR is 2.1 today. Will give 8 mg warfarin today. Continue to monitor PT/INR closely and continue to adjust warfarin as needed Continue IV heparin at this time Case has been discussed with cardiology. Consult placed and input appreciated. An INR monitoring machine is being mailed to her although it is unclear when she will be able to access this. 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 Goal INR 2.5-3.5. Currently subtherapeutic. Plan as above. (3) H/O mitral valve replacement with mechanical valve: Code(s): Z95.2 - Presence of prosthetic heart valve Status: Chronic Assessment and Plan: She is s/p mitral valve replacement by Dr. Dubon at [facility]. The patient recently had her mitral valve replaced and still has some midsternal soreness at the site of the surgery. She appears euvolemic and is taking lasix as prescribed. Continue lasix Monitor volume status closely with strict intake and output, daily weight Continue follow-up outpatient with Dr. Dubon (4) Hypokalemia: Code(s): E87.6 - Hypokalemia Status: Acute Assessment and Plan: Secondary to diuretic use. She has no GI losses. Potassium is 4.4 today. Continue PO potassium supplementation 40 mEq daily Continue to monitor (5) Obstructive sleep apnea: Code(s): G47.33 - Obstructive sleep apnea (adult) (pediatric) Status: Chronic Assessment and Plan: CPAP will be available while inpatient. (6) Multiple sclerosis: Code(s): G35 - Multiple sclerosis Status: Chronic Assessment and Plan: Continue dimethyl fumarate and amantadine (7) COPD (chronic obstructive pulmonary disease): Qualifiers: COPD type: unspecified COPD Qualified Code(s): J44.9 - Chronic obstructive pulmonary disease, unspecified Code(s): J44.9 - Chronic obstructive pulmonary disease, unspecified Status: Chronic Assessment and Plan: Not in acute exacerbation. Continue PRN bronchodilators as needed Continue symbicort and Spiriva Smoking cessation has been encouraged (8) Chest discomfort: Code(s): R07.89 - Other chest pain Status: Acute Assessment and Plan: Intermittent. Likely secondary to discomfort at the surgical site as it is still healing. CXR was normal. EKG and troponin negative for ACS 07/05/20. She had a normal cardiac catheterization 03/11/20. She is on telemetry monitoring which demonstrates sinus rhythm and infrequent PVCs. STAT EKG and troponinx3 were repeated 07/06 given episode of pain and negative for ACS. CXR negative. Pain is likely post-op discomfort. Chest CTA was negative for PE - she does have interstitial lung disease and follows with cardiology. Telemetry is unremarkable. Continue to monitor (9) Anemia: Code(s): D64.9 - Anemia, unspecified Status: Acute Assessment and Plan: Chronic and normocytic. Labs are at baseline. Iron studies are consistent with iron defici
[2020-07-09 14:00] VITALS: BP 92/54; PULSE 77; RESP 16; TEMP 36.6; O2SAT 98
--- NOTE | 2020-07-09 16:05 | PM.CNCAR ---
Assessment and Plan Assessment and plan (1) Subtherapeutic international normalized ratio (INR): Code(s): R79.1 - Abnormal coagulation profile Status: Acute Assessment and Plan: Goal INR 2.5-3.5. Currently 2.1 on increased warfarin dosing compared to home regimen. . Difficult to state with certainty primary issue. On July 04 she received 10 mg warfarin for an INR 1.7. July 05 5 mg INR 1.7 July 06 8 mg with an INR 2.1, July 07 6 mg INR 1.9, July 08 6 mg INR 2.2, July 09 8 mg planned for an INR of 2.1 this morning. Malcolm recommendation and 1 point forth was to continue on intravenous heparin until INR therapeutic of at least 2.5. Given patient's prolonged hospitalization, concerns regarding her children at home without supervision she states she must be discharged. She does not want to leave against medical advice. Although she reports having headache with Lovenox injection she wishes to be discharged as a compromise on Lovenox subcutaneous Q 12 hour 1 milligram/kilogram. While this was not ideal given the fact that she has essentially been hospitalized for nearly 2 weeks over the past 3 weeks we agreed she would take 8 mg warfarin this evening and check her INR 1st thing in the morning tomorrow. Our office will give her call for recommendations with regards warfarin dosing and subcutaneous Lovenox. She will check her INR again the following Tuesday. Lab is closed over the weekend unfortunately. She monitor bleeding. She will follow-up with Dr. Liz as an outpatient as scheduled until she relocates to [place] and establishes with her new Ball Holder. (2) H/O mitral valve replacement with mechanical valve: Code(s): Z95.2 - Presence of prosthetic heart valve Status: Chronic Assessment and Plan: goal INR of 2.5-3.5. Discussed in detail increased thromboembolic complication risk with subtherapeutic INR as well as increased bleeding risk with significant elevations in INR. Patient is adamant that she is compliant with dosing as instructed as well as dietary restrictions. However, she has been eating a small Salad nearly every day since hospitalization. counseled diet, lifestyle once again. Also discussed potential metabolic/ genetic variant resulting in difficulty managing INR on current warfarin manufacture, however, very difficult to definitively assess given difficulties with management since mitral valve replacement. (3) Cardiomyopathy: Qualifiers: Cardiomyopathy type: unspecified Qualified Code(s): I42.9 - Cardiomyopathy, unspecified Code(s): I42.9 - Cardiomyopathy, unspecified Status: Acute Assessment and Plan: Stable, compensated no acute issues at this time. Continue medical therapy. (4) Paroxysmal atrial fibrillation: Code(s): I48.0 - Paroxysmal atrial fibrillation Status: Acute Assessment and Plan: Maintaining sinus rhythm. Systemic anticoagulation for embolic stroke risk reduction. History of Maze. (5) Current use of detention anticoagulation: Code(s): Z79.01 - intermediate (current) use of anticoagulants Status: Acute Assessment and Plan: As above. History of Present Illness History of Present Illness Consult date/time: Date of service:07/09/20 16:05 Cardiology consultation at the request of Dr. Trujillo and Ying Berg of the [facility] service for our opinion regarding anticoagulation management with mechanical mitral valve. Requesting physician: Ying Berg PA-C Consult reason: Other ( Anticoagulation management, mechanical mitral valve, atrial fibrillation history) Reason For Visit: low INR Narrative: Patient is a 45-year-old female who underwent mechanical mitral valve replacement April 2020 with associated Maze procedure for atrial fibrillation, LV dysfunction, CHF, interstitial lung disease, on chronic anticoagulation therapy wh
[2020-07-09 16:10] VITALS: BP 90/70
--- NOTE | 2020-07-09 16:27 | PM.DS ---
DS: Admitting Diagnosis Admitting Diagnosis Admitting Diagnosis: subtherapeutic INR DS: Discharge Diagnosis Discharge Diagnosis (1) Subtherapeutic international normalized ratio (INR): Code(s): R79.1 - Abnormal coagulation profile Status: Acute Assessment and Plan: Hx of mechanical mitral valve replacement and atrial fibrillation. Goal INR 2.5-3.5. She was admitted for IV heparin due to subtherapeutic INR of 1.7 and PT 20.5 at admission. She received 10mg of PO warfarin in the ER 07/04. She was initiated on Heparin IV for bridging her INR. Etiology for subtherapeutic INR not entirely clear. It is possible patient is noncompliant with medications, though she reports consistency in taking warfarin. Her home meds have been thoroughly reviewed and no interactions noted. She reports avoidance of foods that are high in vitamin K. She was seen in consultation by cardiology. [place] recommendations were to continue with heparin until therapeutic INR of 2.5, however patient had issues with child development professor at home and felt she must be discharged. Therefore it was recommended that she take 8 mg of warfarin at home as well as 1 mg/kg Lovenox q.12 (which she had previously been prescribed and had at home) and get INR checked the following morning right away. She then is to call her sand conditioner machine office for further instructions regarding warfarin dose and lovenox. she will then repeat an INR the following Tuesday, 4 days later. An INR monitoring machine is being mailed to her. She was re-educated on proper diet. (2) Current use of terminal supervisor anticoagulation: Code(s): Z79.01 - custodial (current) use of anticoagulants Status: Acute Assessment and Plan: Required due to mechanical mitral valve. Goal INR 2.5-3.5. Plan as above. (3) H/O mitral valve replacement with mechanical valve: Code(s): Z95.2 - Presence of prosthetic heart valve Status: Chronic Assessment and Plan: She is s/p mitral valve replacement by Dr. Dubon at [facility] in April 2020. she still reports occasional midsternal soreness at the site of the surgery. She appears euvolemic and is taking lasix as prescribed. Continue lasix. she will follow-up with Dr. Liz as an outpatient. She does have plans to moved to [place] in the near future and has already established with a sand conditioner machine there. she does state that she will not be moving until the current issues with her long-term anticoagulation are resolved. (4) Hypokalemia: Code(s): E87.6 - Hypokalemia Status: Acute Assessment and Plan: Secondary to diuretic use. She has no GI losses. potassium stabilized. (5) Obstructive sleep apnea: Code(s): G47.33 - Obstructive sleep apnea (adult) (pediatric) Status: Chronic Assessment and Plan: CPAP provided while inpatient. (6) Multiple sclerosis: Code(s): G35 - Multiple sclerosis Status: Chronic Assessment and Plan: Continue dimethyl fumarate and amantadine (7) COPD (chronic obstructive pulmonary disease): Qualifiers: COPD type: unspecified COPD Qualified Code(s): J44.9 - Chronic obstructive pulmonary disease, unspecified Code(s): J44.9 - Chronic obstructive pulmonary disease, unspecified Status: Chronic Assessment and Plan: Not in acute exacerbation. Continue PRN bronchodilators as needed. Continue symbicort and Spiriva. she was educated on smoking cessation for 4 minutes, however she is not interested in quitting smoking at this time. (8) Chest discomfort: Code(s): R07.89 - Other chest pain Status: Acute Assessment and Plan: Intermittent. Likely secondary to discomfort at the surgical site as it is still healing. CXR was normal. EKG and troponin negative for ACS 07/05/20. She had a normal cardiac catheterization 03/11/20. She is on telemetry monitoring which demonstrates sinus rhythm and i
== END 2020-07-09 17:15 | disposition home or self-care (01) | DRG 861 ==
LOC: ANHED 16:33 → ANH3MED 17:06
PROVIDERS: Family Medicine; Nurse Practitioner; Physician Assistant; Admitting Provider Internal Medicine; Emergency Provider Family Medicine; PCP Physician Assistant; Visit Provider Physician Assistant
DX: R79.1 Abnormal coagulation profile (principal); G35 Multiple sclerosis; E87.6 Hypokalemia; T50.2X5A Adverse effect of carbonic-anhydrase inhibitors, benzothiadiazides and other diuretics, initial encounter; D50.9 Iron deficiency anemia, unspecified; J44.9 Chronic obstructive pulmonary disease, unspecified; G47.33 Obstructive sleep apnea (adult) (pediatric); F41.8 Other specified anxiety disorders; I27.20 Pulmonary hypertension, unspecified; F17.210 Nicotine dependence, cigarettes, uncomplicated; R07.89 Other chest pain; R05 Cough; J84.9 Interstitial pulmonary disease, unspecified; R59.9 Enlarged lymph nodes, unspecified; Z79.01 Long term (current) use of anticoagulants; Z79.899 Other long term (current) drug therapy; Z95.2 Presence of prosthetic heart valve
CPT/HCPCS: 36415; 71045; 71275; 80048; 82607; 82728; 82746; 83540; 83550; 83690; 83735; 84484; 85025; 85027; 85610; 85730; 93005; 94660; 96365; 96366; 96368; 99285; A9270; G0378; G0379; J1644; J3480; Q9967

== ENCOUNTER 2020-07-10 09:35 | Outpatient (CLI) | payer OTHER, SELFPAY ==
[2020-07-10 10:06] LABS: INR 1.7; Prothrombin Time 20.6 Seconds (11.1-14.7)
== END 2020-07-10 09:36 | disposition home or self-care (01) ==
LOC: ANHLAB 09:36
PROVIDERS: PCP Physician Assistant; Visit Provider Physician Assistant
DX: R79.1 Abnormal coagulation profile (principal)
CPT/HCPCS: 36415; 85610

== ENCOUNTER 2020-08-06 00:11 | Outpatient (CLI) | payer OTHER, SELFPAY ==
[2020-08-06 17:28] LABS: SARS-CoV-2 RNA PCR Negative
== END 2020-08-06 00:12 | disposition home or self-care (01) ==
LOC: ANHCOVIDDT 00:12
PROVIDERS: PCP Physician Assistant; Visit Provider Internal Medicine Critical Care Medicine
DX: Z01.812 Encounter for preprocedural laboratory examination (principal); Z20.822 Contact with and (suspected) exposure to COVID-19
CPT/HCPCS: C9803; U0003; U0005

== ENCOUNTER 2020-08-08 08:57 | Outpatient (CLI) | payer OTHER, SELFPAY ==
--- NOTE | 2020-09-06 21:11 | WPDSLEEPSTUD ---
Sleep Study Date of Study: 08/08/20 Ordering Provider: Leigha Shea MD Interpreting Physician: Leigha Shea MD Sleep Study Type: CPAP Titration Height: 1.78 m Weight: 106.594 kg Body Mass Index: 33.7 Neck Circumference: 50.8 cm [place]: 11 Reason for Sleep Study Basic sleep study 03/26/2020 with mild DANE, AHI 6.8; returns for CPAP titration Sleep History Tatiana Elder is a 45 year old female with a history of witnessed apnea during a transesophageal echo. She snores at night, wakes up feeling tired in the morning, consumed 60 ounces of caffeine a day. Her legs bother her before sleep and during sleep. There is a family history of sleep apnea with her mother, having sleep apnea. She has had this for several years. She constantly awakens from sleep feeling short of breath, constantly has heartburn and belching at night. She constantly snores loud enough that others complain about it. She constantly has trouble sleeping with a cold, constantly gasps for breath at night and has breathing problems reported to her by others. She constantly sweats excessively at night and notices her heart pounding or beating irregularly at night on occasion. She constantly falls asleep during the day frequently involuntarily, constantly while driving. She does not fall asleep during physical effort or with strong emotion. She does not have loss of muscle tone with strong emotion. She does not have daytime difficulties due to excessive sleepiness. She constantly feels paralyzed on waking or falling asleep and constantly has vivid dreamlike scenes upon awakening or falling asleep. She is never afraid to go to sleep. She constantly has nightmares, remembers her dreams and has racing thoughts. She does not feel sad or depressed. She constantly has anxiety, muscular tension, and notices parts of her body jerking. She constantly kicks at night and has crawly achy feelings in her legs. She constantly has leg pain at night and morning jaw pain. She has problems grinding her teeth very often at night as well as pain during the day, awakens with pain at night, wakes up feeling stiff in the morning with sore achy muscles and frequently wakes up with pain in her neck and spine. She has fatigue, depression, and headaches. Normal bedtime is 10 p.m., but may not fall asleep until 3 a.m. She wakes up 3 times at night to go to the bathroom. She wakes in the morning at 10 a.m. She estimates 4 hours of sleep at night. She is drowsy in the morning for 3 hours or longer. She does take naps, but these are not always refreshing. She feels better in the afternoon than in the morning. Habits: Tobacco, 5 cigarettes a day. No mention of caffeine or alcohol. 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 Depression with anxiety Hypokalemia Mitral stenosis with regurgitation Multiple sclerosis Pulmonary hypertension Vaginal mass vaginal wall lesion that was nonmalignant by bx 11/2004 Surgical History Surgical History H/O section with one miscarriage; x3 H/O hernia repair left 01/2004 H/O mitral valve replacement with mechanical valve H/O: hysterectomy TATA 06/2004 History of cholecystectomy Hx of knee surgery left Hx of shoulder surgery 08/2005 Family History Family History Mother Diabetes mellitus CHF (congestive heart failure) Hypertension Kidney failure Son Seizure in Social History Social History Social History: 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 Smokes 1ppd x 33 yrs ( she started at age 11yo). No history of IV drug use. Lives at home with her son and daughter and boyfriend. H
[2020-09-06 21:12] VITALS: BMI 33.7
== END 2020-08-08 08:58 | disposition home or self-care (01) ==
LOC: ANHCSM 08:58
PROVIDERS: PCP Physician Assistant; Visit Provider Internal Medicine Critical Care Medicine
DX: G47.33 Obstructive sleep apnea (adult) (pediatric) (principal)
CPT/HCPCS: 36415; 85610; 95811

== ENCOUNTER 2020-08-11 11:13 | Outpatient (RCR) | payer OTHER, SELFPAY ==
[2020-06-26 14:31] LABS: Anion Gap 5 mmol/L (8-16); Blood Urea Nitrogen 12 mg/dL (7-17); Calcium 9.2 mg/dL (8.4-10.2); Carbon Dioxide 37 mmol/L (22-30); Chloride 96 mmol/L (98-107); Estimated Glomerular Filt Rate 54; Glucose 121 mg/dL (65-105); Potassium 3.1 mmol/L (3.4-5.0); Sodium 138 mmol/L (137-145)
[2020-06-26 14:38] LABS: INR 1.7
[2020-07-14 10:21] LABS: Hematocrit 34.1 % (37.0-47.0); Hemoglobin 10.2 g/dL (12.0-15.0); Mean Corpuscular HGB Conc 29.9 g/dl (32-36); Mean Corpuscular Hemoglobin 21.5 pg (26-34); Mean Corpuscular Volume 71.9 fl (80-100); Mean Platelet Volume 9.4 fl (7.4-10.4); Platelet Count Result 404 k/mm3 (150-375); Red Blood Count 4.74 M/mm3 (4.2-5.4); Red Cell Distribution Width 21.4 % (11.5-14.5)
[2020-07-14 10:31] LABS: INR 3.5; Prothrombin Time 35.9 Seconds (11.1-14.7)
[2020-07-14 10:36] LABS: Anion Gap 11 mmol/L (8-16); Blood Urea Nitrogen 29 mg/dL (7-17); Calcium 9.9 mg/dL (8.4-10.2); Carbon Dioxide 27 mmol/L (22-30); Chloride 97 mmol/L (98-107); Estimated Glomerular Filt Rate 38; Glucose 133 mg/dL (65-105); Potassium 4.2 mmol/L (3.4-5.0); Sodium 135 mmol/L (137-145)
[2020-07-16 15:32] LABS: Hematocrit 34.1 % (37.0-47.0); Hemoglobin 10.3 g/dL (12.0-15.0); Mean Corpuscular HGB Conc 30.2 g/dl (32-36); Mean Corpuscular Hemoglobin 22.3 pg (26-34); Mean Platelet Volume 9.5 fl (7.4-10.4); Platelet Count Result 382 k/mm3 (150-375); Red Blood Count 4.61 M/mm3 (4.2-5.4); Red Cell Distribution Width 22.1 % (11.5-14.5); White Blood Count 8.6 K/mm3 (4.5-10.0)
[2020-07-16 15:41] LABS: INR 3.6; Prothrombin Time 36.5 Seconds (11.1-14.7)
[2020-07-16 15:47] LABS: Anion Gap 9 mmol/L (8-16); Blood Urea Nitrogen 22 mg/dL (7-17); Calcium 9.3 mg/dL (8.4-10.2); Carbon Dioxide 27 mmol/L (22-30); Chloride 99 mmol/L (98-107); Estimated Glomerular Filt Rate 45; Glucose 97 mg/dL (65-105); Magnesium 2.1 mg/dL (1.6-2.3); Potassium 4.5 mmol/L (3.4-5.0); Sodium 135 mmol/L (137-145)
[2020-07-21 14:51] LABS: Hemoglobin 9.6 g/dL (12.0-15.0); Mean Corpuscular Hemoglobin 22.4 pg (26-34); Mean Corpuscular Volume 74.6 fl (80-100); Mean Platelet Volume 9.3 fl (7.4-10.4); Platelet Count Result 300 k/mm3 (150-375); Red Blood Count 4.29 M/mm3 (4.2-5.4); Red Cell Distribution Width 23.4 % (11.5-14.5); White Blood Count 9.1 K/mm3 (4.5-10.0)
[2020-07-21 15:01] LABS: INR 3.6; Prothrombin Time 36.4 Seconds (11.1-14.7)
[2020-07-21 15:02] LABS: Anion Gap 6 mmol/L (8-16); Blood Urea Nitrogen 20 mg/dL (7-17); Calcium 9.1 mg/dL (8.4-10.2); Carbon Dioxide 30 mmol/L (22-30); Chloride 100 mmol/L (98-107); Estimated Glomerular Filt Rate 49; Glucose 102 mg/dL (65-105); Magnesium 1.6 mg/dL (1.6-2.3); Potassium 3.3 mmol/L (3.4-5.0); Sodium 136 mmol/L (137-145)
[2020-07-25 15:50] LABS: Prothrombin Time 48.5 Seconds (11.1-14.7)
[2020-07-25 15:53] LABS: INR 5.3
[2020-07-28 16:45] LABS: Prothrombin Time 52.4 Seconds (11.1-14.7)
[2020-07-28 17:36] LABS: INR 5.8
[2020-07-31 13:57] LABS: Prothrombin Time 23.5 Seconds (11.1-14.7)
[2020-08-04 15:17] LABS: INR 3.2; Prothrombin Time 33.2 Seconds (11.1-14.7)
[2020-08-08 12:35] LABS: INR 4.5; Prothrombin Time 42.7 Seconds (11.1-14.7)
[2020-08-11 12:06] LABS: Hematocrit 32.3 % (37.0-47.0); Hemoglobin 9.8 g/dL (12.0-15.0); Mean Corpuscular HGB Conc 30.3 g/dl (32-36); Mean Corpuscular Volume 72.6 fl (80-100); Mean Platelet Volume 9.3 fl (7.4-10.4); Platelet Count Result 379 k/mm3 (150-375); Red Blood Count 4.45 M/mm3 (4.2-5.4); Red Cell Distribution Width 22.5 % (11.5-14.5)
[2020-08-11 12:15] LABS: INR 4.4
[2020-08-11 12:20] LABS: Anion Gap 8 mmol/L (8-16); Blood Urea Nitrogen 12 mg/dL (7-17); Calcium 8.9 mg/dL (8.4-10.2); Carbon Dioxide 28 mmol/L (22-30); Chloride 97 mmol/L (98-107); Estimated Glomerular Filt Rate 54; Glucose 103 mg/dL (65-105); Potassium 3.2 mmol/L (3.4-5.0); Sodium 133 mmol/L (137-145)
== END 2020-09-24 23:59 | disposition home or self-care (01) ==
LOC: ANHLAB 11:13
PROVIDERS: PCP Physician Assistant; Visit Provider Internal Medicine Cardiovascular Disease
DX: Z51.81 Encounter for therapeutic drug level monitoring (principal); I48.91 Unspecified atrial fibrillation; G25.81 Restless legs syndrome; R60.0 Localized edema; Z95.2 Presence of prosthetic heart valve; Z79.01 Long term (current) use of anticoagulants
CPT/HCPCS: 36415; 80048; 83735; 85027; 85610

== ENCOUNTER 2020-12-04 23:17 | Emergency (ER) | payer OTHER, SELFPAY ==
--- NOTE | ~2020-12-04 | XR_ITS ---
EXAMINATION: XR chest 2V DATE: 12/04/2020 23:48 INDICATION: Left-sided chest pain TECHNIQUE: PA and lateral views of the chest are obtained. COMPARISON: 07/06/2020 FINDINGS: There are perihilar predominant interstitial opacities. Cardiomegaly is noted. There is no pleural effusion or pneumothorax. There is moderate thoracic spondylosis. Changes of mitral valve rep lacement are again noted. There is a closure device of the left atrial appendage. IMPRESSION: 1. Cardiomegaly with mild pulmonary edema. Reviewed, dictated and finalized at location A.
--- NOTE | 2020-12-04 23:22 | ECG_ITS ---
Measurements Intervals [place] Rate: 82 P: 67 ME: 134 QRS: 62 QRSD: 89 T: 49 QT: 387 QTc: 452 Interpretive Statements SINUS RHYTHM DELAYED PRECORDIAL R/S TRANSITION BASELINE ARTIFACT- I, II, III, AVR, AVL, AVF, V3-V6 BORDERLINE ECG Electronically Signed On 12-05-2020 6:37:24 CDT by Jonah Gómez D.O.
[2020-12-04 23:23] VITALS: BP 177/99; PULSE 77; RESP 20; TEMP 36.7; O2SAT 98
--- NOTE | 2020-12-04 23:27 | ED.CHESTPAIN ---
HPI - Chest Pain General Chief Complaint: Chest Pain Stated Complaint: chest pain Time Seen by Provider: 12/04/20 23:18 Source: patient, RN notes reviewed and old records reviewed History of Present Illness HPI narrative: 45-year-old female presents to emergency department for sternal chest pain that radiates to her left side for the past 20 to 30 minutes. Patient states she has had this in the past before. She states that usually goes away in about 5 to 10 minutes. She has not take anything for the pain so far. Denies shortness of breath. She states she has never had a heart catheterization. Also has not had a recent stress test. Related Data Home Medications Medication Instructions Recorded Confirmed amantadine HCl 100 mg capsule 100 mg PO BID 12/27/19 07/04/20 dimethyl fumarate 120 mg 240 mg PO BID 12/27/19 07/04/20 capsule,delayed release oxybutynin chloride 5 mg tablet 5 mg PO BID 12/27/19 07/04/20 furosemide [Lasix] 80 mg PO BID 06/26/20 07/04/20 Spiriva with HandiHaler 1 cap INHALATION DAILY 07/04/20 07/04/20 budesonide-formoterol [Symbicort] 2 puff INHALATION BID 07/04/20 07/04/20 warfarin 4 mg PO QTUTHSASU 07/04/20 07/04/20 Allergies Allergy/AdvReac Type Severity Reaction Status Date / Time codeine Allergy Mild facial Verified 07/04/20 17:56 swelling latex Allergy Mild Rash Verified 06/26/20 20:12 cocoa butter Allergy Swelling Verified 06/26/20 20:12 coconut Allergy Swelling Verified 06/26/20 20:12 of Lip/Tongue/Throat Review of Systems Review of Systems: Narrative: CONSTITUTIONAL: Denies fever, chills, or sweats. EYES: Denies visual changes, redness, or discharge. ENT: Denies rhinorrhea, congestion, sore throat, or otalgia. CARDIOVASCULAR: Denies chest pain, palpitations, or edema. RESPIRATORY: Denies cough or dyspnea. GASTROINTESTINAL: Denies abdominal pain, nausea, vomiting, or diarrhea. GENITOURINARY: Denies dysuria or hematuria. SKIN: Denies rash or itching. MUSCULOSKELETAL: Denies back pain, joint pain, or myalgia. NEUROLOGIC: Denies headache, numbness, dizziness, or weakness. PSYCHIATRIC: Denies anxiety or depression. 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 use of ferry terminal agent anticoagulation Depression with anxiety Hypokalemia Mitral stenosis with regurgitation Multiple sclerosis Pulmonary hypertension Vaginal mass vaginal wall lesion that was nonmalignant by bx 11/2004 Surgical History Surgical History H/O section with one miscarriage; x3 H/O hernia repair left 01/2004 H/O mitral valve replacement with mechanical valve H/O: hysterectomy TATA 06/2004 History of cholecystectomy Hx of knee surgery left Hx of shoulder surgery 08/2005 Family History Family History Mother Diabetes mellitus CHF (congestive heart failure) Hypertension Kidney failure Son Seizure in infant Social History Social History Social History: 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 Smokes 1ppd x 33 yrs ( she started at age 11yo). No history of IV drug use. Lives at home with her son and daughter and boyfriend. Her other child has moved out. She denies alcohol use. She wishes to make herself a full code. She nominates her friend Bev to be the individual would make medical decisions for her if she is not able. Patient has applied for disability. The patient used to work for [employer]. Patient recently quit smoking. Daughter is Genoveva. Smoking packs per day: 2 Smoking cigarettes per day: 40.0 Years smoked: 35 Smoking pack-years: 70.00 Smoking status: Current every day smoke
[2020-12-04] MEDS: ASPIRIN 81 MG CHEWABLE TABLET 324 MG PO (23:35)
[2020-12-04] MEDS: NITROGLYCERIN SL 0.4 MG TABLET SUBLINGUAL (23:35)
[2020-12-04 23:57] LABS: INR 2.3; Prothrombin Time 25.6 Seconds (11.1-14.7)
[2020-12-04 23:58] LABS: Partial Thromboplastin Time 43.9 SECONDS (22.3-36.8)
[2020-12-05] VITALS (21 sets, daily range): BP systolic 128–166; BP diastolic 65–87; PULSE 74–80; RESP 10–28; O2SAT 97–100
[2020-12-05 00:32] LABS: Basophils Absolute Auto 0.1 K/mm3 (0.0-0.1); Basophils Percent Auto 0.7 % (0.2-1.2); Eosinophils Absolute Auto 0.3 K/mm3 (0-0.3); Eosinophils Percent Auto 3.1 % (0-4.4); Hematocrit 29.8 % (37.0-47.0); Hemoglobin 8.5 g/dL (12.0-15.0); Immature Granulocyte Absolute 0.03 K/mm3 (0.00-0.031); Immature Granulocyte Percent A 0.4 % (0-0.5); Lymphocytes Absolute Auto 1.06 K/mm3 (0.9-3.2); Lymphocytes Percent Auto 12.6 % (18.3-44.2); Mean Corpuscular HGB Conc 28.5 g/dl (32-36); Mean Corpuscular Hemoglobin 22.1 pg (26-34); Mean Corpuscular Volume 77.6 fl (80-100); Mean Platelet Volume 9.2 fl (7.4-10.4); Monocytes Absolute Auto 0.7 K/mm3 (0.1-0.6); Monocytes Percent Auto 7.8 % (2.6-8.5); Neutrophils Absolute Auto 6.4 K/mm3 (1.3-6.7); Neutrophils Percent Auto 75.4 % (45.5-73.1); Platelet Count Result 359 k/mm3 (150-375); Red Blood Count 3.84 M/mm3 (4.2-5.4); White Blood Count 8.4 K/mm3 (4.5-10.0)
[2020-12-05 00:37] LABS: Anisocytosis 2+ (NORMAL); Platelet Estimate Adequate (Adequate)
[2020-12-05 00:43] LABS: Alanine Aminotransferase 21 U/L (4-35); Albumin Level 3.1 g/dL (3.5-5.1); Alkaline Phosphatase 88 U/L (38-126); Anion Gap 4 mmol/L (8-16); Aspartate Amino Transferase 24 U/L (14-36); Blood Urea Nitrogen 13 mg/dL (7-17); Calcium 8.7 mg/dL (8.4-10.2); Carbon Dioxide 28 mmol/L (22-30); Chloride 106 mmol/L (98-107); Estimated CRCL calculation 87 ml/min; Estimated Glomerular Filt Rate > 60; Glucose 101 mg/dL (65-105); Potassium 3.4 mmol/L (3.4-5.0); Sodium 138 mmol/L (137-145)
[2020-12-05 00:55] LABS: NT Pro B Type Natriuretic Pept 531 pg/mL (5-100); Troponin I 0.015 ng/mL (0.000-0.034)
[2020-12-05 03:32] LABS: Troponin I 0.015 ng/mL (0.000-0.034)
== END 2020-12-05 04:02 | disposition home or self-care (01) ==
PROVIDERS: Emergency Provider Emergency Medicine; PCP Physician Assistant
DX: F43.9 Reaction to severe stress, unspecified (principal); R07.2 Precordial pain; J44.9 Chronic obstructive pulmonary disease, unspecified; G35 Multiple sclerosis; I05.2 Rheumatic mitral stenosis with insufficiency; I27.20 Pulmonary hypertension, unspecified; Z95.2 Presence of prosthetic heart valve; Z79.01 Long term (current) use of anticoagulants; F17.210 Nicotine dependence, cigarettes, uncomplicated; R94.31 Abnormal electrocardiogram [ECG] [EKG]
CPT/HCPCS: 36415; 71046; 80053; 83880; 84484; 85025; 85610; 85730; 93005; 99284; A9270

== ENCOUNTER 2020-12-07 13:01 | Outpatient (CLI) | payer OTHER, SELFPAY ==
--- NOTE | ~2020-12-07 | US_ITS ---
EXAMINATION: US right upper quadrant DATE: 12/07/2020 15:22 INDICATION: Right upper quadrant pain, history of cholecystectomy TECHNIQUE: Multiple grayscale and Doppler ultrasound images of the abdomen were obtained. COMPARISON: 12/01/2019 FINDINGS: The head and body of the pancreas are normal. The pancreatic tail is obscured by bowel gas. The liver is normal with normal echogenicity and echotexture. No surface nodularity. Normal hepatope betina flow in the main portal vein. The gallbladder is surgically absent. The normal common bile duct m easures 3 mm. IMPRESSION: 1. No sonographic correlate for the patient's symptoms. Reviewed, dictated and finalized at location A.
== END 2020-12-07 13:02 | disposition home or self-care (01) ==
PROVIDERS: PCP Physician Assistant; Visit Provider Nurse Practitioner Adult Health
DX: R10.11 Right upper quadrant pain (principal)
CPT/HCPCS: 76705

== ENCOUNTER 2021-01-08 13:49 | Outpatient (RCR) | payer OTHER, SELFPAY ==
[2020-10-15 13:04] LABS: INR 3.2; Prothrombin Time 33.2 Seconds (11.1-14.7)
[2020-12-01 13:32] LABS: Prothrombin Time 31.6 Seconds (11.1-14.7)
[2020-12-01 16:12] LABS: Basophils Absolute Auto 0.1 K/mm3 (0.0-0.1); Basophils Percent Auto 0.6 % (0.2-1.2); Eosinophils Absolute Auto 0.3 K/mm3 (0-0.3); Eosinophils Percent Auto 3.3 % (0-4.4); Hematocrit 30.6 % (37.0-47.0); Immature Granulocyte Absolute 0.04 K/mm3 (0.00-0.031); Immature Granulocyte Percent A 0.5 % (0-0.5); Lymphocytes Absolute Auto 1.26 K/mm3 (0.9-3.2); Mean Corpuscular HGB Conc 29.4 g/dl (32-36); Mean Corpuscular Hemoglobin 22.6 pg (26-34); Mean Corpuscular Volume 76.7 fl (80-100); Mean Platelet Volume 9.4 fl (7.4-10.4); Monocytes Absolute Auto 0.8 K/mm3 (0.1-0.6); Neutrophils Absolute Auto 5.5 K/mm3 (1.3-6.7); Neutrophils Percent Auto 69.6 % (45.5-73.1); Platelet Count Result 336 k/mm3 (150-375); Red Blood Count 3.99 M/mm3 (4.2-5.4); Red Cell Distribution Width 20.4 % (11.5-14.5); White Blood Count 7.9 K/mm3 (4.5-10.0)
[2020-12-01 16:36] LABS: Anisocytosis 1+ (NORMAL); Hypochromasia 2+ (NORMAL); Microcytosis 1+ (NORMAL); Platelet Estimate Adequate (Adequate)
[2020-12-01 16:44] LABS: Albumin Level 3.2 g/dL (3.5-5.1); Alkaline Phosphatase 93 U/L (38-126); Anion Gap 5 mmol/L (8-16); Aspartate Amino Transferase 26 U/L (14-36); Bilirubin,Total 1.5 mg/dL (0.2-1.3); Blood Urea Nitrogen 16 mg/dL (7-17); Calcium 9.3 mg/dL (8.4-10.2); Carbon Dioxide 25 mmol/L (22-30); Chloride 106 mmol/L (98-107); Estimated Glomerular Filt Rate > 60; Glucose 83 mg/dL (65-105); Potassium 3.4 mmol/L (3.4-5.0); Sodium 136 mmol/L (137-145)
[2020-12-01 16:59] LABS: Alanine Aminotransferase 25 U/L (4-35)
[2020-12-10 17:10] LABS: Basophils Percent Auto 0.5 % (0.2-1.2); Eosinophils Absolute Auto 0.3 K/mm3 (0-0.3); Eosinophils Percent Auto 4.1 % (0-4.4); Hematocrit 30.5 % (37.0-47.0); Hemoglobin 8.7 g/dL (12.0-15.0); Immature Granulocyte Absolute 0.03 K/mm3 (0.00-0.031); Immature Granulocyte Percent A 0.4 % (0-0.5); Lymphocytes Absolute Auto 1.02 K/mm3 (0.9-3.2); Lymphocytes Percent Auto 13.8 % (18.3-44.2); Mean Corpuscular HGB Conc 28.5 g/dl (32-36); Mean Corpuscular Hemoglobin 22.1 pg (26-34); Mean Corpuscular Volume 77.4 fl (80-100); Mean Platelet Volume 9.3 fl (7.4-10.4); Monocytes Absolute Auto 0.5 K/mm3 (0.1-0.6); Monocytes Percent Auto 6.5 % (2.6-8.5); Neutrophils Absolute Auto 5.5 K/mm3 (1.3-6.7); Neutrophils Percent Auto 74.7 % (45.5-73.1); Platelet Count Result 374 k/mm3 (150-375); Red Blood Count 3.94 M/mm3 (4.2-5.4); Red Cell Distribution Width 19.9 % (11.5-14.5); White Blood Count 7.4 K/mm3 (4.5-10.0)
[2020-12-10 17:21] LABS: INR 4.2; Prothrombin Time 40.5 Seconds (11.1-14.7)
[2020-12-10 17:27] LABS: Alanine Aminotransferase 19 U/L (4-35); Albumin Level 3.4 g/dL (3.5-5.1); Alkaline Phosphatase 96 U/L (38-126); Anion Gap 7 mmol/L (8-16); Aspartate Amino Transferase 28 U/L (14-36); Bilirubin,Total 1.1 mg/dL (0.2-1.3); Blood Urea Nitrogen 16 mg/dL (7-17); Calcium 8.7 mg/dL (8.4-10.2); Carbon Dioxide 26 mmol/L (22-30); Chloride 106 mmol/L (98-107); Estimated Glomerular Filt Rate > 60; Glucose 97 mg/dL (65-105); Potassium 3.3 mmol/L (3.4-5.0); Sodium 139 mmol/L (137-145)
[2020-12-10 18:00] LABS: Hypochromasia 2+ (NORMAL); Platelet Estimate Adequate (Adequate)
[2020-12-10 18:01] LABS: Anisocytosis 3+ (NORMAL)
[2020-12-26 13:13] LABS: Anion Gap 6 mmol/L (8-16); Blood Urea Nitrogen 16 mg/dL (7-17); Calcium 9.1 mg/dL (8.4-10.2); Carbon Dioxide 32 mmol/L (22-30); Chloride 101 mmol/L (98-107); Estimated Glomerular Filt Rate > 60; Glucose 87 mg/dL (65-105); Potassium 3.1 mmol/L (3.4-5.0); Sodium 139 mmol/L (137-145)
[2020-12-26 13:19] LABS: Prothrombin Time 51.6 Seconds (11.1-14.7)
[2020-12-26 13:27] LABS: INR 5.7
[2021-01-02 16:45] LABS: Basophils Absolute Auto 0.1 K/mm3 (0.0-0.1); Basophils Percent Auto 0.9 % (0.2-1.2); Eosinophils Absolute Auto 0.3 K/mm3 (0-0.3); Eosinophils Percent Auto 3.8 % (0-4.4); Hematocrit 29.3 % (37.0-47.0); Hemoglobin 8.2 g/dL (12.0-15.0); Immature Granulocyte Absolute 0.05 K/mm3 (0.00-0.031); Immature Granulocyte Percent A 0.7 % (0-0.5); Lymphocytes Absolute Auto 0.85 K/mm3 (0.9-3.2); Lymphocytes Percent Auto 11.5 % (18.3-44.2); Mean Corpuscular Hemoglobin 21.1 pg (26-34); Mean Corpuscular Volume 75.3 fl (80-100); Mean Platelet Volume 9.8 fl (7.4-10.4); Monocytes Absolute Auto 0.6 K/mm3 (0.1-0.6); Monocytes Percent Auto 8.4 % (2.6-8.5); Neutrophils Absolute Auto 5.5 K/mm3 (1.3-6.7); Neutrophils Percent Auto 74.7 % (45.5-73.1); Platelet Count Result 378 k/mm3 (150-375); Red Blood Count 3.89 M/mm3 (4.2-5.4); Red Cell Distribution Width 20.5 % (11.5-14.5); White Blood Count 7.4 K/mm3 (4.5-10.0)
[2021-01-02 16:55] LABS: INR 1.8; Prothrombin Time 21.9 Seconds (11.1-14.7)
[2021-01-02 16:58] LABS: Alanine Aminotransferase 18 U/L (4-35); Albumin Level 3.8 g/dL (3.5-5.1); Alkaline Phosphatase 110 U/L (38-126); Anion Gap 9 mmol/L (8-16); Aspartate Amino Transferase 30 U/L (14-36); Bilirubin,Total 1.5 mg/dL (0.2-1.3); Blood Urea Nitrogen 14 mg/dL (7-17); Calcium 8.7 mg/dL (8.4-10.2); Carbon Dioxide 21 mmol/L (22-30); Chloride 105 mmol/L (98-107); Estimated Glomerular Filt Rate > 60; Glucose 100 mg/dL (65-105); Potassium 3.7 mmol/L (3.4-5.0); Sodium 135 mmol/L (137-145)
[2021-01-02 17:03] LABS: Hypochromasia 1+ (NORMAL)
[2021-01-08 14:27] LABS: INR 3.5; Prothrombin Time 35.4 Seconds (11.1-14.7)
== END 2021-01-13 23:59 | disposition home or self-care (01) ==
LOC: ANHLAB 13:49
PROVIDERS: PCP Physician Assistant; Referring Provider Nurse Practitioner Adult Health; Visit Provider Internal Medicine Cardiovascular Disease
DX: Z51.81 Encounter for therapeutic drug level monitoring (principal); I48.91 Unspecified atrial fibrillation; Z79.01 Long term (current) use of anticoagulants
CPT/HCPCS: 36415; 80048; 80053; 85025; 85610

== ENCOUNTER 2021-01-14 03:20 | Observation (INO) | payer OTHER, SELFPAY ==
[2021-01-14] VITALS (21 sets, daily range): BP systolic 124–177; BP diastolic 67–95; PULSE 68–96; RESP 18–30; TEMP 35.6–36.6; O2SAT 97–100; BMI 36.7
--- NOTE | ~2021-01-14 | XR_ITS ---
EXAMINATION: XR chest 2V DATE: 01/14/2021 03:55 INDICATION: Shortness of breath. Hypertension. TECHNIQUE: PA and lateral views of the chest were obtained. COMPARISON: Chest radiograph dated 12/04/2020 FINDINGS: Interval decrease in the interstitial pattern in the bilateral mid and lower lung zones consistent wi th improving mild pulmonary edema. No other airspace opacities, pleural effusion or pneumothorax. Car diomegaly. Median sternotomy wires, mitral valve repair and left atrial appendage closure device. Ret ained epicardial pacemaker leads along the right anterior margin of the heart. IMPRESSION: 1. Cardiomegaly with mild pulmonary edema which is decreased since the prior study. Reviewed, dictated and finalized at location A. IMPRESSION: 1. Cardiomegaly with mild pulmonary edema which is decreased since the prior st udy.
--- NOTE | ~2021-01-14 | CT_ITS ---
EXAMINATION: CT chest abdomen pelvis wo con DATE: 01/15/2021 12:23 INDICATION: Shortness of breath and anemia TECHNIQUE: Transaxial computed tomographic images of the chest, abdomen, and pelvis were obtained wit hout intravenous contrast. The dose-length product (DLP) was 1604.42 mGy-cm. Automated exposure contr ol and iterative reconstruction technique were employed. COMPARISON: 07/06/2020 FINDINGS: CHEST CT: Cardiomegaly is noted. There are changes of aortic valve replacement. There are patchy groundglass op acities and smooth interlobular septal thickening throughout the lungs. There is no pleural effusion or pneumothorax. There are no pathologically enlarged thoracic lymph nodes. There is mild thoracic sp ondylosis. ABDOMEN/PELVIS CT: There is a small moderate volume of ascites. Diffuse anasarca is noted. The gallbladder is surgically absent. The spleen, pancreas, and adrenal glands are normal. The kidneys are unremarkable. No pathol ogically enlarged abdominal or pelvic lymph nodes are identified. There is no free intraperitoneal ga s or evidence of bowel obstruction. A moderate volume of colonic stool is present. There are changes of hysterectomy. There is moderate lower lumbar spondylosis. IMPRESSION: 1. Patchy groundglass opacities with areas of smooth interlobular septal thickening, likely pulmonary edema. 2. Cardiomegaly. 3. Small to moderate volume of ascites and diffuse anasarca. Reviewed, dictated and finalized at location B. IMPRESSION: 1. Patchy groundglass opacities with areas of smooth interlobular septal thicke kierra, likely pulmonary edema. 2. Cardiomegaly. 3. Small to moderate volume of ascites and diffuse anasarca.
--- NOTE | ~2021-01-14 | US_ITS ---
EXAMINATION: US soft tissue LE LT DATE: 01/15/2021 16:01 INDICATION: Left thigh focal swelling and pain. TECHNIQUE: Multiple grayscale and Doppler ultrasound images of the left thigh were obtained. COMPARISON: CT chest, abdomen, and pelvis 01/15/2021 FINDINGS: There is no abnormal mass in the patient's area of concern in the left thigh. IMPRESSION: 1. No abnormal mass in the patient's area of concern in the left thigh. Reviewed, dictated and finalized at location A.
--- NOTE | 2021-01-14 03:29 | ECG_ITS ---
Measurements Intervals Bend Rate: 83 P: CO: 0 QRS: 51 QRSD: 72 T: 50 QT: 372 QTc: 437 Interpretive Statements ECTOPIC ATRIAL RHYTHM LOW QRS VOLTAGE IN PRECORDIAL LEADS CANNOT RULE OUT SEPTAL INFARCT, AGE INDETERMINATE BASELINE ARTIFACT- I, II, III, AVR, AVL, V3 ABNORMAL ECG Electronically Signed On 01-14-2021 6:06:53 CDT by Jonah Gómez D.O.
[2021-01-14 03:51] LABS: Basophils Absolute Auto 0.1 K/mm3 (0.0-0.1); Basophils Percent Auto 0.9 % (0.2-1.2); Eosinophils Absolute Auto 0.2 K/mm3 (0-0.3); Hematocrit 25.2 % (37.0-47.0); Hemoglobin 7.1 g/dL (12.0-15.0); Immature Granulocyte Absolute 0.04 K/mm3 (0.00-0.031); Immature Granulocyte Percent A 0.5 % (0-0.5); Lymphocytes Absolute Auto 0.99 K/mm3 (0.9-3.2); Lymphocytes Percent Auto 12.3 % (18.3-44.2); Mean Corpuscular HGB Conc 28.2 g/dl (32-36); Mean Corpuscular Hemoglobin 20.3 pg (26-34); Mean Platelet Volume 9.8 fl (7.4-10.4); Monocytes Absolute Auto 0.6 K/mm3 (0.1-0.6); Monocytes Percent Auto 6.8 % (2.6-8.5); Neutrophils Absolute Auto 6.2 K/mm3 (1.3-6.7); Neutrophils Percent Auto 77.5 % (45.5-73.1); Nucleated Red Blood Cells Absolute Auto 0.1 K/mm3 (0.0-0.012); Nucleated Red Blood Cells Perc 0.6 % (0.0-0.2); Platelet Count Result 360 k/mm3 (150-375); Red Cell Distribution Width 19.9 % (11.5-14.5)
--- NOTE | 2021-01-14 03:57 | ED.SOB ---
HPI - SOB/Dyspnea General Chief Complaint: Shortness of Breath/Dyspnea Stated Complaint: Shortness breath Time Seen by Provider: 01/14/21 03:54 Source: patient Mode of arrival: ambulatory Limitations: no limitations History of Present Illness HPI Narrative: Patient is a 45-year-old female complaining of shortness of breath accompanied by cough, nonproductive that started 3 weeks ago but worse today. Patient states that she has a history of CHF and possibly COPD. Patient also states that she was recently diagnosed with anemia, possibly an auto antibody based on her description my hemoglobin is being attack because it is too small and supposed to see a technical education teacher oncologist for further work-up. Denies any chest pain, abdominal pain, nausea, vomiting, fever or chills. Related Data Home Medications Medication Instructions Recorded Confirmed amantadine HCl 100 mg capsule 100 mg PO BID 12/27/19 07/04/20 dimethyl fumarate 120 mg 240 mg PO BID 12/27/19 07/04/20 capsule,delayed release oxybutynin chloride 5 mg tablet 5 mg PO BID 12/27/19 07/04/20 furosemide [Lasix] 80 mg PO BID 06/26/20 07/04/20 Spiriva with HandiHaler 1 cap INHALATION DAILY 07/04/20 07/04/20 budesonide-formoterol [Symbicort] 2 puff INHALATION BID 07/04/20 07/04/20 warfarin 4 mg PO QTUTHSASU 07/04/20 07/04/20 Allergies Allergy/AdvReac Type Severity Reaction Status Date / Time codeine Allergy Mild facial Verified 07/04/20 17:56 swelling latex Allergy Mild Rash Verified 06/26/20 20:12 cocoa butter Allergy Swelling Verified 06/26/20 20:12 coconut Allergy Swelling Verified 06/26/20 20:12 of Lip/Tongue/Throat Review of Systems Review of Systems: All systems reviewed & are unremarkable except as noted in HPI and below Constitutional: Constitutional: Denies body ache(s), Denies chills, Denies excessive sweating, Denies fatigue, Denies fever(s), Denies headache(s), Denies lethargy, Denies malaise, Denies weakness and Denies weight loss Eyes: Eyes: Denies blurry vision, Denies change in vision and Denies loss of vision ENT: Denies dizziness, Denies ear discharge, Denies headache(s), Denies lip swelling, Denies epistaxis, Denies nasal congestion, Denies neck pain, Denies throat swelling and Denies tongue swelling Cardiovascular: Cardiovascular: Denies chest pain, Denies chest pain at rest, Denies chest pain with activity, Denies diaphoresis, Denies rapid heart rate, Denies edema, Denies irregular heart rhythm, Denies lightheadedness, Denies palpitations, Denies dyspnea and Denies dyspnea on exertion Respiratory: Respiratory: Denies chest congestion and Denies hemoptysis Gastrointestinal: Gastrointestinal: Denies abdominal pain, Denies melena, Denies hematochezia, Denies diarrhea, Denies nausea, Denies vomiting and Denies hematemesis Musculoskeletal: Musculoskeletal: Denies abnormal gait, Denies deformity, Denies joint swelling, Denies limited range of motion, Denies neck pain and Denies numbness Neurologic: Denies Abnormal speech present, Denies abnormal gait, Denies confusion, Denies dizziness, Denies headache(s), Denies focal weakness, Denies loss of vision, Denies numbness, Denies Other visual disturbances, Denies Sensory deficit (Neuro) and Denies weakness Psychiatric: Psychiatric: Denies confusion, Denies depression, Denies auditory hallucinations, Denies homicidal ideation and Denies suicidal ideation Endocrine: Endocrine: Denies cold intolerance, Denies excessive sweating, Denies fatigue, Denies heat intolerance and Denies palpitations Hematologic/Lymphatic: Hematologic/Lymphatic: Denies easy bleeding and Denies easy bruising Allergic/Immunologic: Allergic/Immunologic: Denies lip swelling, Denies throat swelling and Denies tongue swelling [facility] Past Medical History Medical History Asthma COPD (chronic obstructive pulmonary disease) Current use of roasterman anticoagulation Depression with
[2021-01-14 04:08] LABS: Hypochromasia 3+ (NORMAL); Platelet Estimate Adequate (Adequate)
[2021-01-14 04:09] LABS: Anisocytosis 1+ (NORMAL)
[2021-01-14] MEDS: IPRATROPIUM BR 0.02% INH SOLN 0.5 MG/2.5 ML VIAL INHALATION (04:10)
[2021-01-14] MEDS: ALBUTEROL SULFATE NEB 2.5 MG/0.5 ML INH 5 MG INHALATION (04:10)
[2021-01-14] MEDS: DEXAMETHASONE SOD PHOS INJ 4 MG/ML VIAL 10 MG IV PUSH (04:14)
[2021-01-14 04:30] LABS: Anion Gap 10 mmol/L (8-16); Blood Urea Nitrogen 12 mg/dL (7-17); Calcium 8.6 mg/dL (8.4-10.2); Carbon Dioxide 17 mmol/L (22-30); Chloride 107 mmol/L (98-107); Estimated CRCL calculation 88 ml/min; Estimated Glomerular Filt Rate > 60; Glucose 92 mg/dL (65-105); Potassium 3.8 mmol/L (3.4-5.0); Sodium 134 mmol/L (137-145)
--- NOTE | 2021-01-14 04:45 | PC.NURSE ---
RN attempted to stick pt. for IV access. pt. thrashing in bed and yelling it hurts it hurts. take it out!
[2021-01-14 04:47] LABS: Troponin I 0.043 ng/mL (0.000-0.034)
[2021-01-14] MEDS: ASPIRIN 81 MG CHEWABLE TABLET 324 MG PO (05:19)
[2021-01-14 05:33] LABS: Partial Thromboplastin Time 61.6 SECONDS (22.3-36.8)
[2021-01-14 05:36] LABS: INR 5.2
--- NOTE | 2021-01-14 06:12 | PC.NURSE ---
called ED respiratory about ABG's being drawn and states pt has refused them at this time.
[2021-01-14 08:00] LABS: Hematocrit 27.1 % (37.0-47.0); Hemoglobin 7.6 g/dL (12.0-15.0)
--- NOTE | 2021-01-14 08:05 | ADMGEN ---
This patient, Tatiana Elder, was admitted to IMU Room 203-01. Patient/family oriented to hospital policies and general routines including ID bracelet, bed and alarms, visiting hours, pain management, procedures, bathroom and other care routines, personal items, smoking policy, room service/diet, and visiting hours. Information on how to activate the Rapid Response Team has been discussed. Patient/Family are encouraged to report perceived risks to care and to ask questions if they do not understand what they are told or what they should do.
[2021-01-14 08:24] LABS: Troponin I 0.034 ng/mL (0.000-0.034)
[2021-01-14 09:26] LABS: Troponin I 0.035 ng/mL (0.000-0.034)
[2021-01-14] MEDS: SODIUM CHLORIDE 0.9% IV 250 ML 30 ML IV CONT (11:00)
[2021-01-14] MEDS: TUBING, BLOOD PLUM PUMP TUBING 1 EACH XX (11:00)
--- NOTE | 2021-01-14 11:36 | PCNSR ---
On 01/14/21, the student, Breonna Joseph, provided care and completed [facility] documentation on this patient. I have reviewed the student's documentation and agree with the findings.
[2021-01-14 14:49] LABS: Hematocrit 30.5 % (37.0-47.0); Hemoglobin 8.9 g/dL (12.0-15.0)
--- NOTE | 2021-01-14 15:42 | PM.CNCAR ---
Assessment and Plan Assessment and plan (1) Elevated troponin: Code(s): R77.8 - Other specified abnormalities of plasma proteins Status: Acute Assessment and Plan: Minimally elevated troponin that remained flat. EKG does not show any ST deviations. She did have a left heart catheterization as part of an evaluation for her mitral valve replacement in February of 2020 that showed no coronary disease. Mild troponin leak not related to ACS. Heart score is 2. No ischemic evaluation to be pursued at this time. (2) Paroxysmal atrial fibrillation: Code(s): I48.0 - Paroxysmal atrial fibrillation Status: Acute Assessment and Plan: History of atrial fibrillation status post Maze procedure in 2019. She is in atrial fibrillation with controlled ventricular response. on amiodarone. She is on long-term anticoagulation with warfarin. (3) Chest discomfort: Code(s): R07.89 - Other chest pain Status: Acute Assessment and Plan: Her chest pain is atypical, pleuritic pain related to frequent coughing. See above for elevated troponin. (4) Mitral stenosis with regurgitation: Code(s): I05.2 - Rheumatic mitral stenosis with insufficiency Status: Acute Assessment and Plan: History of mitral stenosis thought to be due to rheumatic disease. She is status post mechanical mitral valve replacement by Dr. Dubon in 2019. On exam valve has appropriate click. She is on long-term anticoagulation with warfarin. She is currently supratherapeutic with her INR. (5) Cardiomyopathy: Qualifiers: Cardiomyopathy type: unspecified Qualified Code(s): I42.9 - Cardiomyopathy, unspecified Code(s): I42.9 - Cardiomyopathy, unspecified Status: Acute Assessment and Plan: Nonischemic cardiomyopathy. Currently, she is not exhibiting any symptoms of decompensated heart failure on exam. Continue carvedilol, Lasix, metolazone, lisinopril, spironolactone. (6) Current use of snf anticoagulation: Code(s): Z79.01 - residential (current) use of anticoagulants Status: Acute Assessment and Plan: On warfarin for mechanical mitral valve, atrial fibrillation. She has difficulty maintaining therapeutic levels of her INR and is frequently sub or supratherapeutic. She is currently supratherapeutic. Hold warfarin tonight. History of Present Illness History of Present Illness Consult date/time: 01/14/21 15:42 Requesting physician: Malik Maya MD Consult reason: Other (elevated troponin) Reason For Visit: copd exacerbation,elevated troponin,anemia Narrative: Date of service 01/14/2021: Cardiology consultation for elevated troponin This is a 45-year-old female with an extensive medical history including cardiomyopathy, mitral valve regurgitation status post mechanical valve replacement, atrial fibrillation status post Maze procedure, COPD, anemia. I am seeing her at the request of the hospitalist for elevated troponin. She presented to the emergency department today for shortness of breath and an episode of chest pain. She tells me she has been short of breath for about 2 weeks and has also noticed more dyspnea on exertion. She states the last night when she rolled over in bed she had an intense pain between her breasts that felt like somebody put their hand through her chest and squeezed. She says this pain lasted for about 2 hours and extended to her back and shoulder blades. She states that it resolved spontaneously. she states that she also has some soreness that she perceives to be in her ribs. She is also experiencing some chest pain when she coughs. Patient does state that she had shortness of breath associated with her episode of chest pain last night but denies any radiating of the pain to her left arm, neck, jaw. She denies any nausea, vomiting, diaphoresis. Concurrently, she is not experiencing any chest pain. She tells me that when sh
--- NOTE | 2021-01-14 16:43 | PM.IMHP ---
H&P: HPI History of Present Illness Date/Time: 01/14/21 16:43 Chief Complaint: chest pain shortness of breath Narrative: patient is 45-year-old female who presents to the ER with increasing shortness of breath which has been ongoing since past 2 to 3 weeks. Is also associated with cough which is nonproductive. She started having chest pain last night which was midsternal radiating to the back and hands came to the ER for evaluation. See has history of cardiomyopathy and mitral valve regurgitation and had recently underwent mechanical mitral valve replacement in September of 2020. She also had atrial fibrillation status post Maze procedure. She has chronic anemia however more recently since placed on anticoagulation she has been more anemic and was scheduled to see cryptographic machine operator this Tuesday and will follow in [place]. She reports her chest pain was not radiating to her arm or neck Mendez Farroll no associated diaphoresis nausea vomiting she was given some treatment in the ER which resolved the chest pain her initial troponin was elevated at 0.043 subsequent BC is admitted for further workup. She is also noted to have hemoglobin of 7.1 on admission and 1 atrial PRBC was ordered which she is currently getting. Her INR was also elevated at 5.2 her goal INR is between 2.5 and 3.5. Review of Systems Review of Systems: Narrative: - CONSTITUTIONAL: Denies weight loss, fever and chills. - HEENT: Denies changes in vision and hearing - RESPIRATORY: reportss SOB and cough. - CV: Denies palpitations and reports CP. - GI: Denies abdominal pain, nausea, vomiting and diarrhea. - : Denies dysuria and urinary frequency. - MSK: Denies myalgia and joint pain. - SKIN: Denies rash and pruritus. - NEUROLOGICAL: Denies headache and syncope. - PSYCHIATRIC: Denies recent changes in mood. Denies anxiety and depression. All systems reviewed & are unremarkable except as noted in HPI and below PMFSH Past Medical History Medical History Asthma COPD (chronic obstructive pulmonary disease) Current use of longterm anticoagulation Depression with anxiety Hypokalemia Mitral stenosis with regurgitation Multiple sclerosis Pulmonary hypertension Vaginal mass vaginal wall lesion that was nonmalignant by bx 11/2004 Surgical History Surgical History H/O section with one miscarriage; x3 H/O hernia repair left 01/2004 H/O mitral valve replacement with mechanical valve H/O: hysterectomy TATA 06/2004 History of cholecystectomy Hx of knee surgery left Hx of shoulder surgery 08/2005 Family History Family History (Updated 01/14/21 @ 08:17 by Emani Cooper RN) Mother Diabetes mellitus CHF (congestive heart failure) Kidney failure Hypertension Cerebrovascular accident Asthma History of blood clots Chronic obstructive pulmonary disease Son Seizure in infant Other Breast cancer Prostate carcinoma Social History Social History Social History: 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 Smokes 1ppd x 33 yrs ( she started at age 11yo). No history of IV drug use. Lives at home with her son and daughter and boyfriend. Her other child has moved out. She denies alcohol use. She wishes to make herself a full code. She nominates her friend Bev to be the individual would make medical decisions for her if she is not able. Patient has applied for disability. The patient used to work for [employer]. Patient recently quit smoking. Daughter is Genoveva. Smoking packs per day: 2 Smoking cigarettes per day: 40.0 Years smoked: 35 Smoking pack-years: 70.00 Smoking status: Former smoker Tobacco type: cigarettes Smokeless tobacco user: chewing tobacco Second hand tobacco smoke exposure: Yes Smoking end date:
--- NOTE | 2021-01-14 17:33 | PHAR ---
HOME MED VERIFIED DIMETHYL FUMARATE DR 240MG 1 BID
[2021-01-14] MEDS: IBUPROFEN 400 MG TABLET 800 MG PO (17:49)
[2021-01-14 18:30] LABS: Hematocrit 31.4 % (37.0-47.0)
[2021-01-14 18:39] LABS: Prothrombin Time 46.9 Seconds (11.1-14.7)
--- NOTE | 2021-01-14 19:01 | PC.NURSE ---
This patient, Tatiana Elder, was transferred to [[facility] ] on 01/14/21 at 1901. Personal belongings sent with patient. Report given to [ABE Munoz @[id number] ]. Appropriate documentation sent with patient.
[2021-01-14 19:10] LABS: Iron 20 ug/dL (37-170)
[2021-01-14 19:19] LABS: Percent Iron Saturation 5 % (20-50)
[2021-01-14] MEDS: AMANTADINE HCL 100 MG CAPSULE PO (21:28)
[2021-01-14] MEDS: rOPINIRole HCL 0.5 MG TABLET PO (21:28)
[2021-01-14] MEDS: AMIODARONE HCL 200 MG TABLET 400 MG BY MOUTH (21:28)
[2021-01-14] MEDS: FUROSEMIDE 40 MG TABLET PO (21:28)
[2021-01-14] MEDS: OXYBUTYNIN CHLORIDE 5 MG TABLET PO (21:29)
[2021-01-14] MEDS: carvediloL 6.25 MG TABLET PO (21:29)
[2021-01-15] VITALS (7 sets, daily range): BP systolic 117–142; BP diastolic 60–86; PULSE 56–62; RESP 18–20; TEMP 36–36.1; O2SAT 98–100
--- NOTE | 2021-01-15 | ECHO_ITS ---
Patient Info Name: Tatiana Elder Age: 45 years : 1975 Gender: Female Ht: 69 in Wt: 250 lbs BSA: 2.40 m2 HR: 58 bpm BP: 142 / 86 mmHg Heart Rhythm: Sinus Rhythm Technical Quality: Good Exam Date: 01/15/2021 10:58 AM Exam Location: [facility] Pulmonary Exam Room: 205 Patient Status: Inpatient Admit Date: 01/14/2021 Staff Ordering Physician: Malik Maya MD Web Development Manager: Marguerite Faith RDCS Attending Provider: Kary Blackwood DO Exam Type: CA echo doppler color flow Study Info Indications - SOB Complete two-dimensional, color flow and Doppler transthoracic echocardiogram is performed. Summary 1. Complete two-dimensional, color flow and Doppler transthoracic echocardiogram is performed. 2. Left ventricular systolic function is mildly reduced, estimated at 45-50%. 3. The left ventricular diastolic function is grade II diastolic dysfunction. 4. Right ventricular chamber dimension is moderately enlarged. 5. Right ventricular systolic function is reduced. 6. The mitral valve appears to be a mechanical prosthetic device which is functioning normally. 7. The aortic valve is normal. 8. Left atrial chamber dimension is moderately enlarged. 9. Compared to exam from last year the mitral valve has now been replaced and LV function appears to be slightly improved. Left Ventricle Left ventricular chamber dimension is normal. Left ventricular systolic function is mildly reduced, estimated at 45-50%. The left ventricular diastolic function is grade II diastolic dysfunction. Right Ventricle Right ventricular chamber dimension is moderately enlarged. Right ventricular systolic function is reduced. Left Atria Left atrial chamber dimension is moderately enlarged. Right Atria Right atrial chamber dimension is normal. Aortic Valve The aortic valve is normal. Pulmonic Valve The pulmonic valve is normal. Mitral Valve The mitral valve appears to be a mechanical prosthetic device which is functioning normally. Tricuspid Valve The tricuspid valve leaflets are normal. There is moderate tricuspid valve regurgitation. Pericardium/Pleural The pericardium appears normal. Aorta The aortic root size at the sinus of Valsalva is normal. Left Ventricular Outflow Tract Name Value Normal LVOT 2D LVOT Diameter 2.2 cm LVOT Doppler LVOT Peak Velocity 102 cm/s LVOT Peak Gradient 4 mmHg LVOT Mean Gradient 2 mmHg LVOT VTI 20 cm LVOT VTI/AV VTI Ratio 0.8 LVOT Stroke Volume 79 ml LVOT CO 15.2 l/min LVOT CI 6.7 l/min/m2 Pulmonic Valve Name Value Normal PV Doppler PV Peak Velocity 51 cm/s
[2021-01-15 01:11] LABS: Hematocrit 30.7 % (37.0-47.0); Hemoglobin 8.9 g/dL (12.0-15.0)
[2021-01-15] MEDS: ALBUTEROL SULFATE (*SP) AEROSOL 1 PUFF INHALATION (04:48)
[2021-01-15 05:58] LABS: Basophils Percent Auto 0.2 % (0.2-1.2); Eosinophils Percent Auto 0.1 % (0-4.4); Hematocrit 29.5 % (37.0-47.0); Hemoglobin 8.6 g/dL (12.0-15.0); Immature Granulocyte Percent A 0.7 % (0-0.5); Lymphocytes Absolute Auto 1.21 K/mm3 (0.9-3.2); Lymphocytes Percent Auto 7.9 % (18.3-44.2); Mean Corpuscular HGB Conc 29.2 g/dl (32-36); Mean Corpuscular Hemoglobin 21.2 pg (26-34); Mean Corpuscular Volume 72.8 fl (80-100); Monocytes Percent Auto 6.5 % (2.6-8.5); Neutrophils Absolute Auto 12.9 K/mm3 (1.3-6.7); Neutrophils Percent Auto 84.6 % (45.5-73.1); Nucleated Red Blood Cells Absolute Auto 0.1 K/mm3 (0.0-0.012); Nucleated Red Blood Cells Perc 0.5 % (0.0-0.2); Platelet Count Result 358 k/mm3 (150-375); Red Blood Count 4.05 M/mm3 (4.2-5.4); Red Cell Distribution Width 20.2 % (11.5-14.5); White Blood Count 15.3 K/mm3 (4.5-10.0)
[2021-01-15 06:00] LABS: Anion Gap 9 mmol/L (8-16); Blood Urea Nitrogen 18 mg/dL (7-17); Calcium 8.7 mg/dL (8.4-10.2); Carbon Dioxide 18 mmol/L (22-30); Chloride 104 mmol/L (98-107); Estimated CRCL calculation 95 ml/min; Estimated Glomerular Filt Rate > 60; Glucose 108 mg/dL (65-105); Potassium 4.4 mmol/L (3.4-5.0); Sodium 131 mmol/L (137-145)
[2021-01-15] MEDS: metOLazone 5 MG TABLET PO (06:38)
[2021-01-15 06:48] LABS: Anisocytosis 1+ (NORMAL); Hypochromasia 1+ (NORMAL); Platelet Estimate Adequate (Adequate); Poikilocytosis 1+ (NORMAL)
[2021-01-15] MEDS: carvediloL 6.25 MG TABLET PO ×2 (07:57→20:39)
[2021-01-15] MEDS: FUROSEMIDE 40 MG TABLET PO (07:58)
[2021-01-15] MEDS: POTASSIUM CHLORIDE 20 MEQ TABLET.ER PO (07:58)
[2021-01-15] MEDS: lisinopriL 10 MG TABLET PO (08:00)
[2021-01-15] MEDS: OXYBUTYNIN CHLORIDE 5 MG TABLET PO ×2 (08:00→20:39)
[2021-01-15] MEDS: AMIODARONE HCL 200 MG TABLET 400 MG BY MOUTH ×2 (08:00→20:41)
[2021-01-15] MEDS: SPIRONOLACTONE 25 MG TABLET PO (08:00)
[2021-01-15] MEDS: AMANTADINE HCL 100 MG CAPSULE PO ×2 (08:00→20:39)
[2021-01-15 10:11] LABS: INR 4.9; Prothrombin Time 44.2 Seconds (11.1-14.7)
--- NOTE | 2021-01-15 12:04 | PM.PNCARD ---
Progress Note: A&P Assessment and Plan (1) Elevated troponin: Code(s): R77.8 - Other specified abnormalities of plasma proteins Status: Acute Assessment and Plan: Minimally elevated troponin that remained flat. EKG does not show any ST deviations. She did have a left heart catheterization as part of an evaluation for her mitral valve replacement in February of 2020 that showed no coronary disease. Mild troponin leak not related to ACS. Heart score is 2. No chest pain. No ischemic evaluation to be pursued at this time. (2) Paroxysmal atrial fibrillation: Code(s): I48.0 - Paroxysmal atrial fibrillation Status: Acute Assessment and Plan: History of atrial fibrillation status post Maze procedure in 2019. She is in atrial fibrillation with controlled ventricular response. on amiodarone. She is on long-term anticoagulation with warfarin. (3) Chest discomfort: Code(s): R07.89 - Other chest pain Status: Acute Assessment and Plan: Her chest pain is atypical, pleuritic pain related to frequent coughing. See above for elevated troponin. (4) Mitral stenosis with regurgitation: Code(s): I05.2 - Rheumatic mitral stenosis with insufficiency Status: Acute Assessment and Plan: History of mitral stenosis thought to be due to rheumatic disease. She is status post mechanical mitral valve replacement by Dr. Dubon in 2019. On exam valve has appropriate click. She is on long-term anticoagulation with warfarin. She is currently supratherapeutic with her INR. (5) Cardiomyopathy: Qualifiers: Cardiomyopathy type: unspecified Qualified Code(s): I42.9 - Cardiomyopathy, unspecified Code(s): I42.9 - Cardiomyopathy, unspecified Status: Acute Assessment and Plan: Nonischemic cardiomyopathy. Currently, she is not exhibiting any symptoms of decompensated heart failure on exam. Continue carvedilol, Lasix, metolazone, lisinopril, spironolactone. (6) Current use of [facility] anticoagulation: Code(s): Z79.01 - care home (current) use of anticoagulants Status: Acute Assessment and Plan: On warfarin for mechanical mitral valve, atrial fibrillation. She has difficulty maintaining therapeutic levels of her INR and is frequently sub or supratherapeutic. She is currently supratherapeutic. Subjective Date/time seen: 01/15/21 12:04 Cardiology follow-up for chest pain Date of service 01/15/2021: Patient's breathing is better today. She also says she is not coughing as much. She has not had any further episodes of chest pain. Review of Systems Review of Systems: All systems reviewed & are unremarkable except as noted in HPI and below Constitutional: Constitutional: Denies fatigue, Denies headache(s) and Reports weakness Eyes: Eyes: Denies change in vision ENT: Reports Normal hearing present and Denies headache(s) Cardiovascular: Cardiovascular: Denies chest pain, Denies diaphoresis, Denies pedal edema, Denies leg edema, Denies lightheadedness, Denies palpitations and Reports dyspnea on exertion Respiratory: Respiratory: Reports cough and Reports dyspnea on exertion Gastrointestinal: Gastrointestinal: Denies abdominal pain, Denies nausea and Denies vomiting Genitourinary: Genitourinary: Denies hematuria and Denies urinary urgency Musculoskeletal: Musculoskeletal: Reports back pain, Denies myalgias and Denies numbness Integumentary/Breasts: Skin/Breast: Reports unusual bruising Neurologic: Reports Normal hearing present, Denies confusion, Denies headache(s), Denies numbness and Reports weakness Psychiatric: Psychiatric: Denies anxiety, Denies confusion and Denies depression Endocrine: Endocrine: Denies fatigue and Denies palpitations Hematologic/Lymphatic: Hematologic/Lymphatic: Denies easy bleeding and Reports easy bruising Allergic/Immunologic: Allergic/Immunologic: Denies GI upset with certain foods Exa
[2021-01-15] MEDS: IBUPROFEN 400 MG TABLET 800 MG PO ×2 (14:27→20:36)
--- NOTE | 2021-01-15 15:05 | PM.IMPN ---
Progress Note: A&P Assessment and Plan (1) Chest pain: Code(s): R07.9 - Chest pain, unspecified Status: Acute Assessment and Plan: EKG with no acute ST-T changes mild elevated troponin serial cardiac enzymes flat not suggestive of acute coronary syndrome. No coronary artery disease per left heart catheterization values in the past Cardiology consulted and appreciate their recommendations (2) Acute on chronic anemia: Code(s): D64.9 - Anemia, unspecified Status: Acute Assessment and Plan: baseline hemoglobin around 8 since the surgery. Currently at 7.1 in the setting of supratherapeutic INR. No active signs of bleeding will continue to monitor Transfuse 1 unit of PRBC as ordered recheck and monitor H&H She is opposed to see a regional marketing director for this Tuesday in 0 fallen oIL will monitor her hemoglobin count was tentatively planned to get her to follow-up with hematology as outpatient basis. There is possible left thigh hematoma Continue to monitor H&H (3) Supratherapeutic INR: Code(s): R79.1 - Abnormal coagulation profile Status: Acute Assessment and Plan: admission INR of 5.2. target goal of 2.5-3.5 INR 4.9 continue to hold Coumadin tonight recheck INR in a.m. (4) Elevated troponin: Code(s): R77.8 - Other specified abnormalities of plasma proteins Status: Acute Assessment and Plan: serial enzymes flat cardiology consultation (5) Paroxysmal atrial fibrillation: Code(s): I48.0 - Paroxysmal atrial fibrillation Status: Acute Assessment and Plan: status post Maze procedure in the past (6) Cough: Code(s): R05 - Cough Status: Acute Assessment and Plan: chest x-ray with some congestion continue with her diuretics for her underlying nonischemic cardiomyopathy Will obtain CT scan of chest abdomen pelvis which showed anasarca/pulmonary edema will switch her Lasix to IV (7) Current use of director long term care anticoagulation: Code(s): Z79.01 - roasterman (current) use of anticoagulants Status: Acute Assessment and Plan: see above (8) H/O mitral valve replacement with mechanical valve: Code(s): Z95.2 - Presence of prosthetic heart valve Status: Chronic Assessment and Plan: maintain anticoagulation with warfarin to prevent valve thrombosis (9) Mitral stenosis with regurgitation: Code(s): I05.2 - Rheumatic mitral stenosis with insufficiency Status: Acute (10) Sleep apnea: Qualifiers: Sleep apnea type: unspecified type Qualified Code(s): G47.30 - Sleep apnea, unspecified Code(s): G47.30 - Sleep apnea, unspecified Status: Acute Assessment and Plan: on CPAP at night (11) Cardiomyopathy: Qualifiers: Cardiomyopathy type: unspecified Qualified Code(s): I42.9 - Cardiomyopathy, unspecified Code(s): I42.9 - Cardiomyopathy, unspecified Status: Acute (12) COPD (chronic obstructive pulmonary disease): Qualifiers: COPD type: unspecified COPD Qualified Code(s): J44.9 - Chronic obstructive pulmonary disease, unspecified Code(s): J44.9 - Chronic obstructive pulmonary disease, unspecified Status: Chronic Assessment and Plan: not in acute exacerbation (13) Multiple sclerosis: Code(s): G35 - Multiple sclerosis Status: Chronic (14) Depression with anxiety: Code(s): F41.8 - Other specified anxiety disorders Status: Chronic Assessment and Plan: home medication (15) DVT prophylaxis: Code(s): Z29.9 - Encounter for prophylactic measures, unspecified Status: Acute Assessment and Plan: supratherapeutic INR (16) Left thigh pain: Code(s): M79.652 - Pain in left thigh Status: Acute Assessment and Plan: ?hematoma ?cellulitis Will start cephalexin Or ultrasound Likely a hematoma Pain control Unlikely DVT as already anticoag
[2021-01-15] MEDS: HYDROcodone/acetaminophen (*CRX) 5-325 MG TABLET 1 TAB PO (17:04)
[2021-01-15] MEDS: CEPHALEXIN 500 MG CAPSULE PO ×2 (17:05→23:12)
[2021-01-15] MEDS: FUROSEMIDE INJ 40 MG/4 ML VIAL IV PUSH (17:05)
[2021-01-15] MEDS: SACCHAROMYCES BOULARDII 250 MG CAPSULE PO (17:50)
[2021-01-15] MEDS: rOPINIRole HCL 0.5 MG TABLET PO (20:39)
[2021-01-16] VITALS (7 sets, daily range): BP systolic 106–122; BP diastolic 62–76; PULSE 61–84; RESP 18–20; TEMP 35.8–36.1; O2SAT 94–97
[2021-01-16] MEDS: HYDROcodone/acetaminophen (*CRX) 5-325 MG TABLET 1 TAB PO (03:51)
[2021-01-16 06:21] LABS: Hematocrit 28.7 % (37.0-47.0); Hemoglobin 8.4 g/dL (12.0-15.0); Mean Corpuscular HGB Conc 29.3 g/dl (32-36); Mean Corpuscular Hemoglobin 21.4 pg (26-34); Mean Corpuscular Volume 73.2 fl (80-100); Mean Platelet Volume 10.1 fl (7.4-10.4); Platelet Count Result 346 k/mm3 (150-375); Red Blood Count 3.92 M/mm3 (4.2-5.4); Red Cell Distribution Width 20.5 % (11.5-14.5); White Blood Count 12.2 K/mm3 (4.5-10.0)
[2021-01-16] MEDS: CEPHALEXIN 500 MG CAPSULE PO ×2 (06:21→11:52)
[2021-01-16] MEDS: metOLazone 5 MG TABLET PO (06:21)
[2021-01-16 06:34] LABS: Anion Gap 9 mmol/L (8-16); Blood Urea Nitrogen 27 mg/dL (7-17); Calcium 8.6 mg/dL (8.4-10.2); Carbon Dioxide 22 mmol/L (22-30); Chloride 101 mmol/L (98-107); Estimated CRCL calculation 67 ml/min; Estimated Glomerular Filt Rate 45; Glucose 98 mg/dL (65-105); Potassium 3.2 mmol/L (3.4-5.0); Sodium 132 mmol/L (137-145)
[2021-01-16] MEDS: POTASSIUM CHLORIDE 20 MEQ PACKET (FOR LIQUID) 40 MEQ PO (08:44)
[2021-01-16] MEDS: lisinopriL 10 MG TABLET PO (08:45)
[2021-01-16] MEDS: AMIODARONE HCL 200 MG TABLET 400 MG BY MOUTH (08:45)
[2021-01-16] MEDS: SPIRONOLACTONE 25 MG TABLET PO (08:47)
[2021-01-16] MEDS: SACCHAROMYCES BOULARDII 250 MG CAPSULE PO (08:47)
[2021-01-16] MEDS: AMANTADINE HCL 100 MG CAPSULE PO (08:47)
[2021-01-16] MEDS: OXYBUTYNIN CHLORIDE 5 MG TABLET PO (08:47)
[2021-01-16] MEDS: carvediloL 6.25 MG TABLET PO (08:48)
[2021-01-16] MEDS: FUROSEMIDE INJ 40 MG/4 ML VIAL IV PUSH (08:48)
[2021-01-16] MEDS: IBUPROFEN 400 MG TABLET 800 MG PO (09:00)
[2021-01-16 11:24] LABS: INR 3.3; Prothrombin Time 32.7 Seconds (11.1-14.7)
--- NOTE | 2021-01-16 13:46 | PM.DS ---
DS: Admitting Diagnosis Admitting Diagnosis Admitting Diagnosis: chest pain shortness of breath DS: Discharge Diagnosis Discharge Diagnosis (1) Left thigh pain: Code(s): M79.652 - Pain in left thigh Status: Acute (2) Acute on chronic anemia: Code(s): D64.9 - Anemia, unspecified Status: Acute (3) Supratherapeutic INR: Code(s): R79.1 - Abnormal coagulation profile Status: Acute (4) Elevated troponin: Code(s): R77.8 - Other specified abnormalities of plasma proteins Status: Acute (5) Paroxysmal atrial fibrillation: Code(s): I48.0 - Paroxysmal atrial fibrillation Status: Acute (6) Cough: Code(s): R05 - Cough Status: Acute (7) Current use of rat exterminator anticoagulation: Code(s): Z79.01 - halfway (current) use of anticoagulants Status: Acute (8) H/O mitral valve replacement with mechanical valve: Code(s): Z95.2 - Presence of prosthetic heart valve Status: Chronic (9) Hypokalemia: Code(s): E87.6 - Hypokalemia Status: Acute (10) Obstructive sleep apnea: Code(s): G47.33 - Obstructive sleep apnea (adult) (pediatric) Status: Chronic (11) Pulmonary hypertension: Code(s): I27.20 - Pulmonary hypertension, unspecified Status: Acute (12) Acute systolic (congestive) heart failure: Code(s): I50.21 - Acute systolic (congestive) heart failure Status: Acute (13) Mitral regurgitation: Qualifiers: Cardiac valve disease etiology: etiology unspecified Qualified Code(s): I34.0 - Nonrheumatic mitral (valve) insufficiency Code(s): I34.0 - Nonrheumatic mitral (valve) insufficiency Status: Acute (14) COPD (chronic obstructive pulmonary disease): Qualifiers: COPD type: unspecified COPD Qualified Code(s): J44.9 - Chronic obstructive pulmonary disease, unspecified Code(s): J44.9 - Chronic obstructive pulmonary disease, unspecified Status: Chronic DS: Summary Hospital Course Hospital Course: (1) Chest pain: presented with chest pain. EKG with no acute ST-T changes mild elevated troponin serial cardiac enzymes flat not suggestive of acute coronary syndrome. No coronary artery disease per left heart catheterization values in the past . Cardiology consulted and appreciate their recommendations . Echocardiogram done on 01/15/2021 showed mildly reduced left ventricular systolic function at 45-50%, grade 2 diastolic dysfunction, moderately enlarged right ventricular chamber dimension with reduced systolic function, mitral valve with mechanical prosthetic device functioning normally left atrial chamber moderately enlarged. Compared to previous echo LV function slightly improved. No further inpatient workup per Cardiology. (2) Acute on chronic anemia: Her baseline hemoglobin around 8 since the surgery. Currently at 7.1 in the setting of supratherapeutic INR. No active signs of bleeding will continue to monitor. She was transfused 1 unit of PRBC and her H&H was monitored. Her hemoglobin remained stable post transfusion with no further signs of bleeding. She is supposed to see quill picking machine operator this week however it was of this hospitalization. She will reschedule her follow-up appointment with her quill picking machine operator. We will recheck her CBC next week. (3) Supratherapeutic INR: Her admission INR was 5.2. Her target goal is 2.5-3.5. Coumadin was held during the hospitalization. INR at the time of discharge 3.3. Her Coumadin dose is adjusted at the time of discharge to a total dose of 40 mg per week from 45 mg per week. Instruction on the dose of Coumadin was provided to the patient. INR will be checked on Tuesday with further adjustment of the dose as required. (4) Elevated troponin: serial enzymes flat cardiology consultation (5) Paroxysmal atrial fibrillation: status post Maze procedure in the past (6) Cough: Code(s): R05 - Cough
== END 2021-01-16 14:55 | disposition home or self-care (01) ==
LOC: ANHED 05:19 → ANHIMU 09:23 → ANH2MED 01-16 13:46 → ANHIMU 01-21 10:29
PROVIDERS: Admitting Provider Internal Medicine; Emergency Provider Emergency Medicine; PCP Physician Assistant; Visit Provider Internal Medicine
DX: R07.9 Chest pain, unspecified (principal); R06.02 Shortness of breath; I48.91 Unspecified atrial fibrillation; D64.9 Anemia, unspecified; R79.1 Abnormal coagulation profile; R77.8 Other specified abnormalities of plasma proteins; G35 Multiple sclerosis; G47.33 Obstructive sleep apnea (adult) (pediatric); I42.9 Cardiomyopathy, unspecified; J44.9 Chronic obstructive pulmonary disease, unspecified; L53.9 Erythematous condition, unspecified; M79.89 Other specified soft tissue disorders; Z79.01 Long term (current) use of anticoagulants; Z87.891 Personal history of nicotine dependence; Z95.2 Presence of prosthetic heart valve
CPT/HCPCS: 36415; 36430; 71046; 71250; 74176; 76882; 80048; 82728; 83540; 83550; 84484; 85014; 85018; 85025; 85027; 85610; 85730; 86850; 86900; 86901; 86920; 93005; 93306; 94640; 96361; 96374; 99285; A9270; G0378; G0379; J1100; J1940; J7050; P9016

== ENCOUNTER 2021-02-06 14:56 | Outpatient (RCR) | payer OTHER, SELFPAY ==
[2021-02-06 15:57] LABS: INR 3.3; Prothrombin Time 32.5 Seconds (11.1-14.7)
== END 2021-05-07 23:59 | disposition home or self-care (01) ==
LOC: ANHLAB 14:56
PROVIDERS: PCP Physician Assistant; Visit Provider Internal Medicine Cardiovascular Disease
DX: Z51.81 Encounter for therapeutic drug level monitoring (principal); I48.91 Unspecified atrial fibrillation; Z79.01 Long term (current) use of anticoagulants
CPT/HCPCS: 36415; 85610

== ENCOUNTER 2022-08-26 16:14 | Outpatient (CLI) | payer MEDICARE, SELFPAY ==
[2022-08-26 17:15] LABS: Alanine Aminotransferase 21 U/L (6-35); Albumin Level 4.3 g/dL (3.5-5.1); Alkaline Phosphatase 143 U/L (38-126); Anion Gap 7 mmol/L (8-16); Aspartate Amino Transferase 25 U/L (14-36); Bilirubin,Total 1.3 mg/dL (0.2-1.3); Blood Urea Nitrogen 14 mg/dL (7-17); Calcium 9.1 mg/dL (8.4-10.2); Carbon Dioxide 23 mmol/L (22-30); Chloride 107 mmol/L (98-107); Estimated Glomerular Filt Rate > 60; Glucose 90 mg/dL (65-110); Potassium 3.7 mmol/L (3.4-5.0); Sodium 137 mmol/L (137-145)
[2022-08-26 17:48] LABS: Thyroid Stimulating Hormone 0.587 uIU/mL (0.465-4.680)
[2022-08-26 19:26] LABS: Free T4 Free Thyroxine 1.48 ng/mL (0.78-2.19)
[2022-08-31 13:46] LABS: Thyroid Stimulating Immunoglob <89 % baseline (<140)
[2022-09-01 04:30] LABS: Triiodothyronine T3 Free 3.1 pg/mL (2.3-4.2)
[2022-09-02 03:32] LABS: Thyroid Peroxidase Antibodies <1 IU/mL (<9)
== END 2022-08-26 16:15 | disposition home or self-care (01) ==
PROVIDERS: PCP Physician Assistant; Visit Provider Internal Medicine Endocrinology, Diabetes & Metabolism
DX: R94.6 Abnormal results of thyroid function studies (principal)
CPT/HCPCS: 36415; 80053; 82542; 84439; 84443; 84445; 84481; 86376

== ENCOUNTER 2022-09-06 15:38 | Outpatient (CLI) | payer MEDICARE, MEDICAID, SELFPAY ==
--- NOTE | ~2022-09-06 | US_ITS ---
EXAMINATION: US thyroid DATE: 09/06/2022 16:15 INDICATION: Goiter. TECHNIQUE: Multiple ultrasound images of the thyroid were obtained. COMPARISON: None. FINDINGS: The right thyroid lobe measures 5.8 x 1.9 x 1.7 cm. The left thyroid lobe measures 6.0 x 2.0 x 1.5 c m. In the right thyroid lobe, there is a 10 mm solid, hypoechoic, wider than tall nodule with smooth margin without echogenic foci (TI-RADS TR4). IMPRESSION: 1. Thyroid nodule. Thyroid ultrasound is recommended in one year. Reviewed, dictated and finalized at location A. 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
== END 2022-09-06 15:39 | disposition home or self-care (01) ==
PROVIDERS: PCP Physician Assistant; Visit Provider Internal Medicine Endocrinology, Diabetes & Metabolism
DX: E04.1 Nontoxic single thyroid nodule (principal)
CPT/HCPCS: 76536